=== PATIENT | female | born 1945 | race Caucasian/White ===

== ENCOUNTER 2021-01-15 08:44 | Emergency (ER) | payer MEDICARE, SELFPAY ==
--- NOTE | ~2021-01-15 | XR_ITS ---
EXAMINATION: XR ANKLE, RIGHT XR ANKLE, LEFT CLINICAL INFORMATION: Fall, pain. Unable to walk. COMPARISON: None TECHNIQUE: 3 views of each ankle are obtained. There are total of 6 views. FINDINGS: Right: There is no fracture or dislocation. Ankle mortise is symmetric. The talar dome shows no osteochondral lesion. No ankle joint narrowing or erosive change. No visible ankle capsular effusion. The subtalar joint appears normal. The retrocalcaneal recess is preserved. There is some mild narrowing from the medial malleolus, small posterior calcaneal spur, and moderate plantar calcaneal spur. There is mild spurring dorsal midfoot. Left: There is an oblique fracture distal fibula with mild lateral displacement distal fracture fragment. The posterior and medial malleoli are intact and the ankle mortise is symmetric. Talar dome shows no osteochondral lesion. The subtalar joint is unremarkable. There is a moderate plantar calcaneal spur and borderline posterior calcaneal spur. There is spurring from the dorsum midfoot and dorsal tarsal navicular. XR/XR ankle RT 2V IMPRESSION: 1. Oblique fracture distal left fibula. 2. No right ankle fracture or dislocation.
--- NOTE | ~2021-01-15 | CT_ITS ---
EXAMINATION: CT ANGIOGRAM OF THE CHEST WITH AND WITHOUT CONTRAST (CT PULMONARY ANGIOGRAM FOR PE) CLINICAL INFORMATION: Reason for Exam SOB, hypoxic, elevated dimer COMPARISON: None TECHNIQUE: Prior to contrast administration, noncontrast localization images were obtained. Subsequently, multidetector volumetric imaging was performed from the thoracic inlet to below the diaphragms following the administration of 71 mL Omnipaque 350 intravenous contrast. No contrast reaction reported Sagittal, coronal, and MIP oblique sagittal reformatted images were obtained on the CT workstation, uploaded to PACS, and reviewed. This CT examination was performed using dose optimization techniques as appropriate, variously including the following: *Automated exposure control *Adjustment of mA and/or kV according to patient size (this includes techniques or standardized protocols for targeted exams where dose is matched to indication/reason for exam; i.e. extremities or head) *Use of iterative reconstruction technique Total exam dose-length product 545 mGy-cm FINDINGS: QUALITY OF STUDY/CONTRAST BOLUS: Satisfactory. PULMONARY ARTERIES: No central or segmental pulmonary emboli. THORACIC AORTA: No aneurysm or dissection. LUNG: There are small lung volumes present. Hazy density seen bilateral lung bases likely related to atelectasis. PLEURA: No pleural effusion or pneumothorax. MEDIASTINUM: The heart is mildly enlarged. No pericardial effusion. No hilar or mediastinal lymphadenopathy. No evidence of septal bowing or right heart strain. No evidence of septal bowing or right heart strain. CHEST WALL/AXILLA: No axillary or internal mammary lymphadenopathy. OSSEOUS STRUCTURES: No acute or suspicious osseous abnormality. There is multilevel degenerative disc disease seen. There is bridging with calcification of the anterior longitudinal ligament within the lower thoracic spine. UPPER ABDOMEN: Multiple hepatic cysts cysts are seen one of which contains calcification within the left lobe. There is reflux of contrast into the hepatic veins suggestive of elevated right heart pressures. CT/CT angio chest PE protocol IMPRESSION: No evidence of acute pulmonary artery embolus. No evidence of thoracic aortic aneurysm or dissection. Mild cardiomegaly without evidence of septal bowing or right heart strain. There is some reflux into the inferior vena cava and hepatic veins suggestive of increased right heart pressures. Small lung volumes with atelectatic change. VTE: negative
--- NOTE | ~2021-01-15 | CT_ITS ---
EXAMINATION: CT CERVICAL SPINE WITHOUT CONTRAST CLINICAL INFORMATION: Fall, trauma. ETOH. COMPARISON: CT head 01/15/2021 TECHNIQUE: Multidetector volumetric CT imaging of the cervical spine is performed without contrast in the axial plane. Additional 2D reformatted coronal and sagittal images are generated on the CT workstation and uploaded to PACS. This CT examination was performed using dose optimization techniques as appropriate, variously including the following: *Automated exposure control *Adjustment of mA and/or kV according to patient size (this includes techniques or standardized protocols for targeted exams where dose is matched to indication/reason for exam; i.e. extremities or head) *Use of iterative reconstruction technique DLP: 748 mGy-cm FINDINGS: There is no vertebral compression fracture, fracture line, or prevertebral soft tissue swelling. The craniocervical junction appears normal. No perched facet. The odontoid appears intact. There is mild straightening cervical lordosis. Multilevel degenerative facet changes are present. There is anterior vertebral spurring mid cervical spine and mild disc narrowing C5-C6. There is borderline spondylolisthesis C3-C4 and at C4-C5, both likely related to the facet degeneration. There are degenerative changes between anterior arch C1 and the dens and involving the left temporomandibular joint with chondrocalcinosis meniscus. No apical pneumothorax. No subcutaneous emphysema. There are degenerative changes CT/CT cervical spine wo con IMPRESSION: 1. No acute bony abnormality or prevertebral soft tissue swelling. 2. Borderline spondylolisthesis C3 on C4 and C4 on C5 likely related to the multilevel facet degeneration.
--- NOTE | ~2021-01-15 | CT_ITS ---
EXAMINATION: CT HEAD WITHOUT CONTRAST CLINICAL INFORMATION: Fall, trauma. ETOH COMPARISON: None TECHNIQUE: Contiguous axial imaging was performed from the skull base to vertex without intravenous administration of contrast. Additional 2-D coronal and sagittal reformatted images are generated on the CT workstation and uploaded to PACS. This CT examination was performed using dose optimization techniques as appropriate, variously including the following: *Automated exposure control *Adjustment of mA and/or kV according to patient size (this includes techniques or standardized protocols for targeted exams where dose is matched to indication/reason for exam; i.e. extremities or head) *Use of iterative reconstruction technique DLP: 793 mGy-cm FINDINGS: There is no intracranial hemorrhage, hematoma, or extra-axial fluid collection. The ventricles are normal in size. There is no hydrocephalus, edema, or mass effect. There is mild to moderate atrophic changes with accentuation of the cortical sulci and fissures and cisterns. There is some mild periventricular white matter gliosis also involving the external capsules. There is no visible acute territorial infarct or mass lesion. The calvarium appears intact. There is no pneumocephalus or orbital emphysema. The visualized sinuses and middle ears and mastoid air cells show no significant mucosal thickening. There are no air-fluid levels. There is chondrocalcinosis and degenerative changes left temporomandibular joint. CT/CT head/brain wo con IMPRESSION: No acute intracranial abnormality.
--- NOTE | ~2021-01-15 | XR_ITS ---
EXAMINATION: XR ANKLE, RIGHT XR ANKLE, LEFT CLINICAL INFORMATION: Fall, pain. Unable to walk. COMPARISON: None TECHNIQUE: 3 views of each ankle are obtained. There are total of 6 views. FINDINGS: Right: There is no fracture or dislocation. Ankle mortise is symmetric. The talar dome shows no osteochondral lesion. No ankle joint narrowing or erosive change. No visible ankle capsular effusion. The subtalar joint appears normal. The retrocalcaneal recess is preserved. There is some mild narrowing from the medial malleolus, small posterior calcaneal spur, and moderate plantar calcaneal spur. There is mild spurring dorsal midfoot. Left: There is an oblique fracture distal fibula with mild lateral displacement distal fracture fragment. The posterior and medial malleoli are intact and the ankle mortise is symmetric. Talar dome shows no osteochondral lesion. The subtalar joint is unremarkable. There is a moderate plantar calcaneal spur and borderline posterior calcaneal spur. There is spurring from the dorsum midfoot and dorsal tarsal navicular. XR/XR ankle LT 2V IMPRESSION: 1. Oblique fracture distal left fibula. 2. No right ankle fracture or dislocation.
--- NOTE | 2021-01-15 08:46 | ECG_ITS ---
Test Reason : FALL Blood Pressure : / mmHG Vent. Rate : 105 BPM Atrial Rate : 105 BPM P-R Int : 152 ms QRS Dur : 066 ms QT Int : 334 ms P-R-T Axes : 040 -29 036 degrees QTc Int : 441 ms Sinus tachycardia Leftward axis Otherwise normal ECG No previous ECGs available Referred By: Marguerite Anton Electronically Signed By:ALEXANDRA GRIFFIN
[2021-01-15 08:59] VITALS: BP 147/84; PULSE 110; RESP 18; TEMP 37.4; O2SAT 91; BMI 39.7
--- NOTE | 2021-01-15 09:10 | ED.FALL ---
HPI - Fall General Chief Complaint: Fall Stated Complaint: fall s/p etoh, on the ground from 1-8am, -LOC/head Time Seen by Provider: 01/15/21 08:46 Source: patient Mode of arrival: EMS Limitations: no limitations History of Present Illness HPI Narrative: Patient comes to the emergency room complaining of a fall. Patient states that last night she drank a lot of bloody Juanita's. Patient states that she fell to the ground around 01:00, states that she is not sure if she passed out. Denies any headache, no neck pain. Patient states she believes she was on the ground until 08:00, states her legs feel weak. Related Data Allergies Allergy/AdvReac Type Severity Reaction Status Date / Time No Known Allergies Allergy Verified 01/15/21 08:46 Review of Systems Review of Systems: Constitutional : No Weight loss, No Fever, No Chills, No Night Sweats, No Fatigue, No Malaise ENT/Mouth : No Hearing loss, No Ear Pain, No Nasal Congestion, No Sinus Pain, No Hoarseness, No sore throat, No Rhinorrhea, No Swallowing Difficulty Eyes: No Eye Pain, No Swelling, No Redness, No Foreign Body, No Discharge, No Vision Changes Cardiovascular : No Chest Pain, No SOB, No Dyspnea on Exertion, No Orthopnea, No Edema, No Palpitations Respiratory : No Cough, No Sputum, No Wheezing, No Smoke Exposure, No Dyspnea Gastrointestinal : No Nausea, No Vomiting, No Diarrhea, No Constipation, No abdominal Pain, No Hematochezia, No Melena Genitourinary : no irregular bleeding, No Dysuria, No Urinary Frequency, No Hematuria, No Urinary Incontinence, No Urgency, No Flank Pain, No Urinary Flow Changes, No Hesitancy Musculoskeletal : No joint pain, No Myalgias, No Joint Swelling Skin : No Skin Lesions, No rash Neuro : No Weakness, No Numbness, No Paresthesias, No Loss of Consciousness, No Dizziness, No Headache Psych : No Anxiety/Panic, No Depression, No SI/HI/AH/VH, No Social Issues, Heme/Lymph: No Bruising, No Bleeding,No Lymphadenopathy Endocrine : No Polyuria, No Polydipsia, No Temperature Intolerance [facility] Past Medical History Medical History (Updated 01/15/21 @ 16:33 by Marguerite Anton MD) H/O: HTN (hypertension) Social History Social History Advance Directives: No Advance Directives Information Provided: No Physical Exam Vital Signs: Vital Signs: Last Vital Signs Temp 98.6 F 01/15/21 11:56 Pulse 109 H 01/15/21 11:56 Resp 22 H 01/15/21 11:56 BP 156/84 H 01/15/21 11:56 Pulse Ox 95 01/15/21 11:56 Body Mass Index 39.7 Course Course Course Narrative: I discussed the CT scan findings with the patient, nothing acute. Patient will be walked to check her oxygen saturation concentration while walking and to see if she is strong enough to do so. Patient's D-dimer is elevated, CTA of chest is pending. Patient does have an oblique fracture of the left fibula. I discussed the patient with Dr. Villanueva, patient is in a posterior splint, patient will follow-up outpatient with orthopedics. If patient has a PE, patient will likely need to be admitted. Patient can be managed in the outpatient setting. Patient will need case management and physical therapy. Sign out given to Dr. Chambers MDM - Fall Lab Data Result diagrams: 01/15/21 09:17 01/15/21 09:17 Labs: Lab Results 01/15/21 01/15/21 01/15/21 Range/Units 09:17 09:17 09:17 WBC 12.0 H (4.8-10.8) X10*3/uL RBC 4.73 (4.20-5.50) X10*6/uL Hgb 14.6 (12.0-16.0) g/dl Hct 45.0 (37-47) % MCV 95.1 (80-98) fL MCH 30.9 (27.0-33.0) pg MCHC 32.4 (31.0-35.0) g/dl RDW 14.7 (11.0-16.0) % Plt Count 273 (160-400) X10*3/uL MPV 8.8 L (9.4-12.3) fL Immature Gran % (Auto) 0.5 H (0.0-0.4) % Neut % (Auto) 80.7 H (45-73) % Lymph % (Auto) 8.5 L (20-40) % Williamson % (Auto) 8.5 (2-11) % Eos % (Auto) 1.4 (0-4) % Baso % (Auto) 0.4 (0-2) % Lymph # (Auto) 1.0 L (1.2-4.9) X10*3/uL Williamson # (Auto) 1.0 (0.1-1.2) X10*3/uL Eos # (Auto) 0.2 (0.0-0.4) X10*3/uL Baso # (Auto) 0.1 (0.0-0.2) X10*3/uL Abs Immat Gran (auto) 0.06 H (0.00-0.03) X10*3/uL Absolute Neuts (auto) 9.7 H (2.0-8.3) X10*3/uL Absolute Nucleated RBC 0.000 (0.0-0.012) X10*3/uL Nucleated RBC % (auto) 0.0 (0.0-0.2) /100WBC PT 11.8 (9.9-13.0) SEC INR 1.0 (0.9-1.1) D-Dimer NG/ML Sodium 142 (135-145) mmol/L Potassium 4.2 (3.3-5.1) mmol/L Chloride 109 H (96-108) mmol/L Carbon Dioxide 22 (22-29) mmol/L Anion Gap 15 (12-20) BUN 15 (9-16) mg/dL Creatinine 0.77 (0.5-1.4) mg/dL Estim Creat Clear Calc 70.8 Estimated GFR > 60 Random Glucose 122 H (60-115) mg/dL Calcium 9.4 (8.4-10.2) mg/dL Magnesium 1.9 (1.6-2.6) mg/dL Total Bilirubin 1.2 H (0.0-1.0) mg/dL Direct Bilirubin 0.5 (0.0-0.5) mg/dL AST 26 (5-31) U/L ALT 21 (0-31) U/L Alkaline Phosphatase 100 (39-117) U/L Total Creatine Kinase (26-140) U/L B-Natriuretic Peptide (<100) pg/mL Total Protein 7.4 (6.5-8.0) g/dL Albumin 4.0 (3.5-5.0) g/dL Lipase 34 (8-78) U/L Urine Color Urine Appearance Urine pH (5.0-8.0) Ur Specific Ambia (1.005-1.025) Urine Protein (NEG-TRACE) MG/DL Urine Glucose (UA) (NEG) MG/DL Urine Ketones (NEG) MG/DL Urine Blood (NEG) Urine Nitrite (NEG) Ur Leukocyte Esterase (NEG) Urine Opiates Screen (Not Detect) Urine Fentanyl Screen (Not Detect) Ur Barbiturates Screen (Not Detect) Ur Phencyclidine Scrn (Not Detect) Ur Amphetamines Screen (Not Detect) U Benzodiazepines Scrn (Not Detect) Urine Cocaine Screen (Not Detect) U Marijuana (THC) Screen (Not Detect) Ethyl Alcohol mg/dL COVID-19 (NGUYỄN) (Negative) COVID-19 Clin Com 01/15/21 01/15/21 01/15/21 Range/Units 09:17 09:17 10:19 WBC (4.8-10.8) X10*3/uL RBC (4.20-5.50) X10*6/uL Hgb (12.0-16.0) g/dl Hct (37-47) % MCV (80-98) fL MCH (27.0-33.0) pg MCHC (31.0-35.0) g/dl RDW (11.0-16.0) % Plt Count (160-400) X10*3/uL MPV (9.4-12.3) fL Immature Gran % (Auto) (0.0-0.4) % Neut % (Auto) (45-73) % Lymph % (Auto) (20-40) % Williamson % (Auto) (2-11) % Eos % (Auto) (0-4) % Baso % (Auto) (0-2) % Lymph # (Auto) (1.2-4.9) X10*3/uL Williamson # (Auto) (0.1-1.2) X10*3/uL Eos # (Auto) (0.0-0.4) X10*3/uL Baso # (Auto) (0.0-0.2) X10*3/uL Abs Immat Gran (auto) (0.00-0.03) X10*3/uL Absolute Neuts (auto) (2.0-8.3) X10*3/uL Absolute Nucleated RBC (0.0-0.012) X10*3/uL Nucleated RBC % (auto) (0.0-0.2) /100WBC PT (9.9-13.0) SEC INR (0.9-1.1) D-Dimer NG/ML Sodium (135-145) mmol/L Potassium (3.3-5.1) mmol/L Chloride (96-108) mmol/L Carbon Dioxide (22-29) mmol/L Anion Gap (12-20) BUN (9-16) mg/dL Creatinine (0.5-1.4) mg/dL Estim Creat Clear Calc Estimated GFR Random Glucose (60-115) mg/dL Calcium (8.4-10.2) mg/dL Magnesium (1.6-2.6) mg/dL Total Bilirubin (0.0-1.0) mg/dL Direct Bilirubin (0.0-0.5) mg/dL AST (5-31) U/L ALT (0-31) U/L Alkaline Phosphatase (39-117) U/L Total Creatine Kinase 249 H (26-140) U/L B-Natriuretic Peptide 102 H (<100) pg/mL Total Protein (6.5-8.0) g/dL Albumin (3.5-5.0) g/dL Lipase (8-78) U/L Urine Color Urine Appearance Urine pH (5.0-8.0) Ur Specific Ambia (1.005-1.025) Urine Protein (NEG-TRACE) MG/DL Urine Glucose (UA) (NEG) MG/DL Urine Ketones (NEG) MG/DL Urine Blood (NEG) Urine Nitrite (NEG) Ur Leukocyte Esterase (NEG) Urine Opiates Screen (Not Detect) Urine Fentanyl Screen (Not Detect) Ur Barbiturates Screen (Not Detect) Ur Phencyclidine Scrn (Not Detect) Ur Amphetamines Screen (Not Detect) U Benzodiazepines Scrn (Not Detect) Urine Cocaine Screen (Not Detect) U Marijuana (THC) Screen (Not Detect) Ethyl Alcohol < 10 mg/dL COVID-19 (NGUYỄN) (Negative) COVID-19 Clin Com 01/15/21 01/15/21 01/15/21 Range/Units 10:19 11:31 11:31 WBC (4.8-10.8) X10*3/uL RBC (4.20-5.50) X10*6/uL Hgb (12.0-16.0) g/dl Hct (37-47) % MCV (80-98) fL MCH (27.0-33.0) pg MCHC (31.0-35.0) g/dl RDW (11.0-16.0) % Plt Count (160-400) X10*3/uL MPV (9.4-12.3) fL Immature Gran % (Auto) (0.0-0.4) % Neut % (Auto) (45-73) % Lymph % (Auto) (20-40) % Williamson % (Auto) (2-11) % Eos % (Auto) (0-4) % Baso % (Auto) (0-2) % Lymph # (Auto) (1.2-4.9) X10*3/uL Williamson # (Auto) (0.1-1.2) X10*3/uL Eos # (Auto) (0.0-0.4) X10*3/uL Baso # (Auto) (0.0-0.2) X10*3/uL Abs Immat Gran (auto) (0.00-0.03) X10*3/uL Absolute Neuts (auto) (2.0-8.3) X10*3/uL Absolute Nucleated RBC (0.0-0.012) X10*3/uL Nucleated RBC % (auto) (0.0-0.2) /100WBC PT (9.9-13.0) SEC INR (0.9-1.1) D-Dimer NG/ML Sodium (135-145) mmol/L Potassium (3.3-5.1) mmol/L Chloride (96-108) mmol/L Carbon Dioxide (22-29) mmol/L Anion Gap (12-20) BUN (9-16) mg/dL Creatinine (0.5-1.4) mg/dL Estim Creat Clear Calc Estimated GFR Random Glucose (60-115) mg/dL Calcium (8.4-10.2) mg/dL Magnesium (1.6-2.6) mg/dL Total Bilirubin (0.0-1.0) mg/dL Direct Bilirubin (0.0-0.5) mg/dL AST (5-31) U/L ALT (0-31) U/L Alkaline Phosphatase (39-117) U/L Total Creatine Kinase (26-140) U/L B-Natriuretic Peptide (<100) pg/mL Total Protein (6.5-8.0) g/dL Albumin (3.5-5.0) g/dL Lipase (8-78) U/L Urine Color YELLOW Urine Appearance CLEAR Urine pH 6.0 (5.0-8.0) Ur Specific Ambia 1.015 (1.005-1.025) Urine Protein TRACE (NEG-TRACE) MG/DL Urine Glucose (UA) NEG (NEG) MG/DL Urine Ketones 5 (NEG) MG/DL Urine Blood NEG (NEG) Urine Nitrite NEG (NEG) Ur Leukocyte Esterase NEG (NEG) Urine Opiates Screen Not Detected (Not Detect) Urine Fentanyl Screen Not Detected (Not Detect) Ur Barbiturates Screen Not Detected (Not Detect) Ur Phencyclidine Scrn Not Detected (Not Detect) Ur Amphetamines Screen Not Detected (Not Detect) U Benzodiazepines Scrn Not Detected (Not Detect) Urine Cocaine Screen Not Detected (Not Detect) U Marijuana (THC) Screen Not Detected (Not Detect) Ethyl Alcohol mg/dL COVID-19 (NGUYỄN) Negative (Negative) COVID-19 Clin Com See Note 01/15/21 Range/Units 13:17 WBC (4.8-10.8) X10*3/uL RBC (4.20-5.50) X10*6/uL Hgb (12.0-16.0) g/dl Hct (37-47) % MCV (80-98) fL MCH (27.0-33.0) pg MCHC (31.0-35.0) g/dl RDW (11.0-16.0) % Plt Count (160-400) X10*3/uL MPV (9.4-12.3) fL Immature Gran % (Auto) (0.0-0.4) % Neut % (Auto) (45-73) % Lymph % (Auto) (20-40) % Williamson % (Auto) (2-11) % Eos % (Auto) (0-4) % Baso % (Auto) (0-2) % Lymph # (Auto) (1.2-4.9) X10*3/uL Williamson # (Auto) (0.1-1.2) X10*3/uL Eos # (Auto) (0.0-0.4) X10*3/uL Baso # (Auto) (0.0-0.2) X10*3/uL Abs Immat Gran (auto) (0.00-0.03) X10*3/uL Absolute Neuts (auto) (2.0-8.3) X10*3/uL Absolute Nucleated RBC (0.0-0.012) X10*3/uL Nucleated RBC % (auto) (0.0-0.2) /100WBC PT (9.9-13.0) SEC INR (0.9-1.1) D-Dimer 909 NG/ML Sodium (135-145) mmol/L Potassium (3.3-5.1) mmol/L Chloride (96-108) mmol/L Carbon Dioxide (22-29) mmol/L Anion Gap (12-20) BUN (9-16) mg/dL Creatinine (0.5-1.4) mg/dL Estim Creat Clear Calc Estimated GFR Random Glucose (60-115) mg/dL Calcium (8.4-10.2) mg/dL Magnesium (1.6-2.6) mg/dL Total Bilirubin (0.0-1.0) mg/dL Direct Bilirubin (0.0-0.5) mg/dL AST (5-31) U/L ALT (0-31) U/L Alkaline Phosphatase (39-117) U/L Total Creatine Kinase (26-140) U/L B-Natriuretic Peptide (<100) pg/mL Total Protein (6.5-8.0) g/dL Albumin (3.5-5.0) g/dL Lipase (8-78) U/L Urine Color Urine Appearance Urine pH (5.0-8.0) Ur Specific Ambia (1.005-1.025) Urine Protein (NEG-TRACE) MG/DL Urine Glucose (UA) (NEG) MG/DL Urine Ketones (NEG) MG/DL Urine Blood (NEG) Urine Nitrite (NEG) Ur Leukocyte Esterase (NEG) Urine Opiates Screen (Not Detect) Urine Fentanyl Screen (Not Detect) Ur Barbiturates Screen (Not Detect) Ur Phencyclidine Scrn (Not Detect) Ur Amphetamines Screen (Not Detect) U Benzodiazepines Scrn (Not Detect) Urine Cocaine Screen (Not Detect) U Marijuana (THC) Screen (Not Detect) Ethyl Alcohol mg/dL COVID-19 (NGUYỄN) (Negative) COVID-19 Clin Com Imaging Data Brain and cervical spine CT: Radiologist's impression: FINDINGS: There is no intracranial hemorrhage, hematoma, or extra-axial fluid collection.? The ventricles are normal in size. There is no hydrocephalus, edema, or mass effect.? There is mild to moderate atrophic changes with accentuation of the cortical sulci and fissures and cisterns. There is some mild periventricular white matter gliosis also involving the external capsules.? There is no visible acute territorial infarct or mass lesion. The calvarium appears intact. There is no pneumocephalus or orbital emphysema.? The visualized sinuses and middle ears and mastoid air cells show no significant mucosal thickening. There are no air-fluid levels. There is chondrocalcinosis and degenerative changes left temporomandibular joint. CT/CT head/brain wo con IMPRESSION: No acute intracranial abnormality. ECG Data Attestation: I personally reviewed and interpreted this ECG as follows: (Sinus tachycardia, heart rate 105, no ST segment depression or elevation, no T-wave inversions) Discharge Plan Discharge Clinical Impression: Closed fibular fracture, Acute dyspnea
[2021-01-15 09:22] LABS: MANUAL DIFF FLAG NO
[2021-01-15 09:23] LABS: Basophils Absolute Auto 0.1 X10*3/uL (0.0-0.2); Basophils Percent Auto 0.4 % (0-2); Eosinophils Absolute Auto 0.2 X10*3/uL (0.0-0.4); Eosinophils Percent Auto 1.4 % (0-4); Hemoglobin 14.6 g/dl (12.0-16.0); Imm Gran Abs Auto 0.06 X10*3/uL (0.00-0.03); Imm Gran Pct Auto 0.5 % (0.0-0.4); Lymphocytes Percent Auto 8.5 % (20-40); Mean Corpuscular HGB Conc 32.4 g/dl (31.0-35.0); Mean Corpuscular Hemoglobin 30.9 pg (27.0-33.0); Mean Corpuscular Volume 95.1 fL (80-98); Mean Platelet Volume 8.8 fL (9.4-12.3); Monocytes Percent Auto 8.5 % (2-11); Neutrophils Absolute Auto 9.7 X10*3/uL (2.0-8.3); Neutrophils Percent Auto 80.7 % (45-73); Platelet Count 273 X10*3/uL (160-400); Red Blood Count 4.73 X10*6/uL (4.20-5.50); Red Cell Distribution Width 14.7 % (11.0-16.0)
[2021-01-15 09:32] LABS: Prothrombin Time 11.8 SEC (9.9-13.0)
[2021-01-15 09:43] LABS: Ethanol < 10 mg/dL
[2021-01-15 09:45] LABS: Alanine Aminotransferase 21 U/L (0-31); Alkaline Phosphatase 100 U/L (39-117); Anion Gap 15 (12-20); Aspartate Amino Transferase 26 U/L (5-31); Bilirubin Direct 0.5 mg/dL (0.0-0.5); Bilirubin Total 1.2 mg/dL (0.0-1.0); Calcium 9.4 mg/dL (8.4-10.2); Carbon Dioxide 22 mmol/L (22-29); Chloride 109 mmol/L (96-108); Creatinine Clr Calc Pharmacy 70.8; Estimated Glomerular Filt Rate > 60; Glucose Random 122 mg/dL (60-115); Lipase 34 U/L (8-78); Magnesium 1.9 mg/dL (1.6-2.6); Potassium 4.2 mmol/L (3.3-5.1); Sodium 142 mmol/L (135-145); Total Protein 7.4 g/dL (6.5-8.0)
[2021-01-15 10:27] LABS: Blood Urea Nitrogen 15 mg/dL (9-16)
[2021-01-15] MEDS: 0.9 % Sodium Chloride 1,000 ML 999 ML IVCONT (10:39)
[2021-01-15 10:44] LABS: COVID-19 Test Negative (Negative); IDNOW Serial# 55D5AD1C
[2021-01-15 10:56] LABS: B Type Natriuretic Peptide 102 pg/mL (<100)
[2021-01-15 11:46] LABS: Appearance Urine CLEAR; Color Urine YELLOW; Glucose Urine UA NEG (NEG); Leukocyte Esterase Urine NEG (NEG); Nitrite Urine NEG (NEG); Specific Gravity - Urine 1.015 (1.005-1.025); Urine Blood NEG (NEG); Urine Ketones 5 MG/DL (NEG); Urine Protein TRACE MG/DL (NEG-TRACE)
[2021-01-15 11:56] VITALS: BP 156/84; PULSE 109; RESP 22; TEMP 37; O2SAT 95
[2021-01-15 11:57] LABS: Amphetamine Screen Urine Not Detected (Not Detect); Barbiturates, Urine Not Detected (Not Detect); Benzodiazepines Screen Urine Not Detected (Not Detect); Cannabinoid Screen Urine Not Detected (Not Detect); Cocaine Screen Urine Not Detected (Not Detect); Fentanyl, urine Not Detected (Not Detect); Opiate Screen Urine Not Detected (Not Detect); Phencyclidine Screen Urine Not Detected (Not Detect)
[2021-01-15 13:49] LABS: D Dimer 909 NG/ML
[2021-01-15] MEDS: traMADoL HCL 50 MG TABLET PO (13:50)
[2021-01-15 14:00] VITALS: BP 140/76; PULSE 100; RESP 14; TEMP 37.2; O2SAT 95
[2021-01-15] MEDS: iohexoL 350 MG/ML 100 ML INFUS..BTL IV (16:22)
--- NOTE | 2021-01-15 19:56 | PC.NURSE ---
MD REPORTS PT WILL STAY WITH US CASE MANAGEMENT. DAUGHTER REPORTS PT LIVES AT HOME ALONE, UNABLE TO CARE FOR HERSELF WITH FX.
[2021-01-15 20:51] VITALS: BP 167/94; PULSE 101; RESP 21; TEMP 37.1; O2SAT 93
--- NOTE | 2021-01-15 21:49 | MHC.CM.ED ---
CM met with patient and daughter per request of Dr. Chambers. Pt is A&Ox3. Pt is fully vaccinated with Vitasol. Pt lives alone and has a private pay stacker attendant every other week. Pt does not use any DME or has any services. Pt does not feel she can care for herself at home with her L tibula fx and weakness. PT evaluation ordered for am. Pt's daughter is in agreement. Daughter provides transportation and shops for her mother. HCP reviewed, completed and signed per protocol. Copies given and Uploaded into [employer] and [employer]. Reviewed both STR and Acute rehab. Pt and daughter would like Acute rehab as their first choice, and then facilities in [place] if not offered an acute rehab bed. [facility] given for both acute rehab and 5 [place] facilities. Referrals placed to 3 acute rehab. facilities. RN and Dr. Chambers aware of above. Requested hospital bed for overnight. Contact card given. CM to follow for d/c needs.
--- NOTE | 2021-01-15 21:53 | PC.NURSE ---
assisted pt with bedpan, changed linen and gown. pt requested toothbrush and paste. pt also given sandwich and soda.
--- NOTE | 2021-01-15 23:04 | MHC.CM.ED ---
Pt admits to drinking two Bloody Juanita's nightly to help her sleep. RN aware.
[2021-01-15] MEDS: Melatonin 3 MG TABLET 6 MG PO (23:25)
--- NOTE | 2021-01-15 23:40 | PC.NURSE ---
pt transferred to hospital bed for comfort. assisted with bedpan. pt refused to try purewick device.
[2021-01-16 01:36] VITALS: PULSE 92; RESP 16; O2SAT 95
[2021-01-16] MEDS: Acetaminophen 325 MG TABLET 650 MG PO (01:38)
[2021-01-16 06:16] VITALS: BP 139/66; PULSE 91; RESP 24; O2SAT 93
--- NOTE | 2021-01-16 06:31 | PC.NURSE ---
ASSISTED PT WITH BEDPAN, PT AGREED TO TRY A PUREWICK. LINEN CHANGED. PT SITTING UPRIGHT, REQUESTED HER BAG SO SHE CAN PUT MAKEUP ON. PT ASKING WHEN BREAKFAST WILL BE SERVED.
[2021-01-16 07:31] VITALS: BP 139/66; PULSE 91; O2SAT 93
[2021-01-16 07:55] VITALS: BP 137/90; PULSE 90; RESP 30; TEMP 37.2; O2SAT 92
[2021-01-16] MEDS: Losartan Potassium 50 MG TABLET PO (07:59)
--- NOTE | 2021-01-16 08:05 | PC.NURSE ---
Pt resting in bed. VSS though her sats remain low. Pt did have a workup for this yeaterday. She does not appear to be in any distress at this time. Afebrile. She had breakfast and states that she does not need anything at this time.
--- NOTE | 2021-01-16 09:27 | MHC.CM.ED ---
Patient remains in ER. Physical therapy eval completed. Short term rehab is recommended. Referral sent to all 3 acute rehabs. No acute rehab beds could be offered. Referral broadcasted to all 5 [place] group home facilities. Continue to monitor for d/c needs.
--- NOTE | 2021-01-16 09:50 | MHC.CM.ED ---
Met with patient and daughter in regards to discharge planning. Explained no acute rehab beds could be offered. Facility choices are: 1) [facility] 2) [facility] 3) [facility] 4) [facility] 5) [facility]. Referrals made via [employer]. Continue to monitor for d/c needs.
[2021-01-16] MEDS: LORazepam 0.5 MG TABLET PO (11:38)
[2021-01-16 11:43] VITALS: BP 150/81; PULSE 88; RESP 18; O2SAT 92
--- NOTE | 2021-01-16 11:53 | PC.NURSE ---
Pt c/o restless leg syndrome. PO ativan given. Pt's VSS. Pt given full bed bath. Daughter at bedside. Awaiting placement into SNF at this time.
--- NOTE | 2021-01-16 12:37 | MHC.CM.ED ---
Addendum entered by Michelle Turk 01/16/21 13:30: Patient received 2 Pfizer vaccines on 06/19 and 07/24. Original Note: Only facility able to offer a bed is [facility]. Patient and daughter Karma aware and agreeable. Patient can leave at 3pm. [facility] booked. Patient, Kimber Parada RN and Germaine WINCHESTER aware. Continue to monitor for d/c needs.
--- NOTE | 2021-01-16 14:41 | PC.NURSE ---
Report given to nurse at [facility]. Plan to discharge via ambulance at 1500.
== END 2021-01-16 15:38 | disposition skilled nursing facility (03) ==
PROVIDERS: Emergency Provider Emergency Medicine; PCP Internal Medicine
DX: S82.402A Unspecified fracture of shaft of left fibula, initial encounter for closed fracture (principal); M79.605 Pain in left leg; R06.00 Dyspnea, unspecified; R06.02 Shortness of breath; M54.2 Cervicalgia; X58.XXXA Exposure to other specified factors, initial encounter; Y93.9 Activity, unspecified; Y92.9 Unspecified place or not applicable; Y99.9 Unspecified external cause status; Z20.822 Contact with and (suspected) exposure to COVID-19; Z79.899 Other long term (current) drug therapy
CPT/HCPCS: 29505; 36415; 70450; 71275; 72125; 73600; 80048; 80076; 80307; 81003; 82077; 82550; 83690; 83735; 83880; 85025; 85379; 85610; 87635; 93005; 96360; 97162; 99284; 99285; Q9967

== ENCOUNTER 2021-01-29 07:13 | Outpatient (REF) | payer MEDICARE, SELFPAY ==
--- NOTE | ~2021-01-29 | XR_ITS ---
EXAMINATION: XR ANKLE, LEFT CLINICAL INFORMATION: Left ankle pain COMPARISON: 01/15/2021 TECHNIQUE: AP, lateral, and mortise views of the left ankle. FINDINGS: Again noted is the oblique fracture of the distal fibular metadiaphysis with approximately 0.3-0.4 cm lateral displacement of the distal fibular fragment at the site of lateral cortical disruption. No acute fractures identified at the medial or posterior malleoli. The talar dome is well-positioned within the ankle mortise. Ankle joint space is maintained. Old small ossicles are noted distal to the medial malleolus. Soft tissues remain swollen around the ankle. There is no callus formation at the fibular fracture site. There is a plantar calcaneal enthesophyte. Degenerative changes at some of the joints, including navicular-cuneiform joints where there is mild loss of joint space, subarticular cystic change and osteophyte formation. XR/XR ankle LT min 3V IMPRESSION: * No new abnormalities at the left ankle compared to 01/15/2021. * Again noted is an acute, mildly displaced oblique fracture of the distal fibular metadiaphysis (Salmon B injury).
== END 2021-01-29 07:14 | disposition home or self-care (01) ==
LOC: HO.HOSX 07:13
PROVIDERS: Visit Provider Physician Assistant
DX: S82.832A Other fracture of upper and lower end of left fibula, initial encounter for closed fracture (principal)
CPT/HCPCS: 73610; 99202

== ENCOUNTER 2021-02-05 08:35 | Outpatient (REF) | payer MEDICARE, SELFPAY ==
--- NOTE | ~2021-02-05 | XR_ITS ---
EXAMINATION: XR ANKLE, LEFT CLINICAL INFORMATION: Pain in unspecified ankle and joints of unspecified foot COMPARISON: Prior radiographs of the left ankle 01/29/2021 and 01/15/2021 TECHNIQUE: AP, lateral, and mortise views of the left ankle. FINDINGS: Redemonstration of obliquely oriented fibular fracture with some evidence of bony remodeling and callus formation. There has been no change in the alignment of the major fracture fragments. No new fracture is identified. There has been essentially no other change in findings since the prior study. XR/XR ankle LT min 3V IMPRESSION: Overall stable appearance of distal fibular fracture with bony remodeling and callus formation.
== END 2021-02-05 08:36 | disposition home or self-care (01) ==
LOC: HO.HOSX 08:35
PROVIDERS: Visit Provider Physician Assistant
DX: S82.832A Other fracture of upper and lower end of left fibula, initial encounter for closed fracture (principal)
CPT/HCPCS: 73610; 99212

== ENCOUNTER 2021-02-27 07:25 | Outpatient (REF) | payer MEDICARE, SELFPAY ==
--- NOTE | ~2021-02-27 | XR_ITS ---
EXAMINATION: XR ANKLE, LEFT CLINICAL INFORMATION: Ankle pain. COMPARISON: 02/05/2021 TECHNIQUE: AP, lateral, and mortise views of the left ankle. FINDINGS: Again seen is a spiral fracture of the distal fibula. Some minimal periosteal reaction is present, best appreciated on the lateral radiograph, not significantly changed when compared to the prior study. Some degenerative changes are also seen with some small osteophytes arising from the medial malleolus. A small plantar calcaneal spur is seen. XR/XR ankle LT min 3V IMPRESSION: Healing distal left fibular fracture.
== END 2021-02-27 07:26 | disposition home or self-care (01) ==
LOC: HO.HOSX 07:25
PROVIDERS: Visit Provider Physician Assistant
DX: S82.832D Other fracture of upper and lower end of left fibula, subsequent encounter for closed fracture with routine healing (principal)
CPT/HCPCS: 73610; 99212

== ENCOUNTER 2021-04-14 07:13 | Outpatient (REF) | payer MEDICARE, SELFPAY ==
--- NOTE | ~2021-04-14 | XR_ITS ---
EXAMINATION: XR ANKLE, LEFT CLINICAL INFORMATION: Ankle pain. COMPARISON: Left ankle 02/27/2021 and multiple priors. TECHNIQUE: AP, lateral, and mortise views of the left ankle. FINDINGS: Again seen is a healing spiral fracture of the distal fibula. Healing appears increased on the current study when compared to the prior exam. Again noted are some degenerative changes in the ankle along with well-corticated bony densities at the tip of the medial malleolus, probably secondary to old trauma. No new fractures are seen. XR/XR ankle LT min 3V IMPRESSION: Healing left fibular fracture and other chronic findings as described above.
== END 2021-04-14 07:14 | disposition home or self-care (01) ==
LOC: HO.HOSX 07:13
PROVIDERS: Visit Provider Physician Assistant
DX: S82.832D Other fracture of upper and lower end of left fibula, subsequent encounter for closed fracture with routine healing (principal)
CPT/HCPCS: 73610; 99212

== ENCOUNTER → 2022-08-16 14:53 | Outpatient (BNVA) | payer MEDICARE, OTHER, SELFPAY | PROVIDERS: PCP Internal Medicine; Visit Provider Internal Medicine | DX: I48.0 Paroxysmal atrial fibrillation (principal); Z79.01 Long term (current) use of anticoagulants; Z51.81 Encounter for therapeutic drug level monitoring | CPT/HCPCS: 85610; 99202 ==

== ENCOUNTER → 2022-08-20 14:51 | Outpatient (BNVA) | payer MEDICARE, OTHER, SELFPAY | PROVIDERS: PCP Internal Medicine; Visit Provider Internal Medicine | DX: I48.0 Paroxysmal atrial fibrillation (principal); Z79.01 Long term (current) use of anticoagulants; Z51.81 Encounter for therapeutic drug level monitoring | CPT/HCPCS: 85610; 99211 ==

== ENCOUNTER → 2022-08-27 14:56 | Outpatient (BNVA) | payer MEDICARE, OTHER, SELFPAY | PROVIDERS: PCP Internal Medicine; Visit Provider Internal Medicine | DX: I48.0 Paroxysmal atrial fibrillation (principal); Z79.01 Long term (current) use of anticoagulants; Z51.81 Encounter for therapeutic drug level monitoring | CPT/HCPCS: 85610; 99211 ==

== ENCOUNTER → 2022-09-03 14:27 | Outpatient (BNVA) | payer MEDICARE, OTHER, SELFPAY | PROVIDERS: PCP Internal Medicine; Visit Provider Internal Medicine | DX: I48.0 Paroxysmal atrial fibrillation (principal); Z51.81 Encounter for therapeutic drug level monitoring; Z79.01 Long term (current) use of anticoagulants | CPT/HCPCS: 85610; 99211 ==

== ENCOUNTER → 2022-09-10 14:19 | Outpatient (BNVA) | payer MEDICARE, OTHER, SELFPAY | PROVIDERS: PCP Internal Medicine; Visit Provider Internal Medicine | DX: I48.0 Paroxysmal atrial fibrillation (principal); Z79.01 Long term (current) use of anticoagulants; Z51.81 Encounter for therapeutic drug level monitoring | CPT/HCPCS: 85610; 99211 ==

== ENCOUNTER → 2022-09-17 14:20 | Outpatient (BNVA) | payer MEDICARE, OTHER, SELFPAY | PROVIDERS: PCP Internal Medicine; Visit Provider Internal Medicine | DX: I48.0 Paroxysmal atrial fibrillation (principal); Z79.01 Long term (current) use of anticoagulants; Z51.81 Encounter for therapeutic drug level monitoring | CPT/HCPCS: 85610; 99211 ==

== ENCOUNTER → 2022-09-24 14:23 | Outpatient (BNVA) | payer MEDICARE, OTHER, SELFPAY | PROVIDERS: PCP Internal Medicine; Visit Provider Internal Medicine | DX: I48.0 Paroxysmal atrial fibrillation (principal); Z79.01 Long term (current) use of anticoagulants; Z51.81 Encounter for therapeutic drug level monitoring | CPT/HCPCS: 36415; 80048; 85025; 85610; 99211 ==

== ENCOUNTER 2022-09-24 14:56 | Outpatient (REF) | payer MEDICARE, OTHER, SELFPAY ==
[2022-09-24 15:18] LABS: MANUAL DIFF FLAG NO
[2022-09-24 16:00] LABS: Basophils Absolute Auto 0.1 X10*3/uL (0.0-0.2); Basophils Percent Auto 0.6 % (0-2); Eosinophils Absolute Auto 0.3 X10*3/uL (0.0-0.4); Eosinophils Percent Auto 3.7 % (0-4); Hematocrit 40.9 % (37.0-47.0); Hemoglobin 12.7 g/dl (12.0-16.0); Imm Gran Abs Auto 0.02 X10*3/uL (0.00-0.03); Imm Gran Pct Auto 0.3 % (0.0-0.4); Lymphocytes Absolute Auto 1.4 X10*3/uL (1.2-4.9); Lymphocytes Percent Auto 17.2 % (20-40); Mean Corpuscular HGB Conc 31.1 g/dl (31.0-35.0); Mean Corpuscular Hemoglobin 30.8 pg (27.0-33.0); Mean Platelet Volume 9.4 fL (9.4-12.3); Monocytes Absolute Auto 0.8 X10*3/uL (0.1-1.2); Monocytes Percent Auto 9.7 % (2-11); Neutrophils Absolute Auto 5.4 x10*3/uL (2.0-8.3); Neutrophils Percent Auto 68.5 % (45-73); Platelet Count 295 X10*3/uL (160-400); Red Blood Count 4.13 X10*6/uL (4.20-5.50); Red Cell Distribution Width 15.9 % (11.0-16.0); White Blood Count 7.9 X10*3/uL (4.8-10.8)
[2022-09-24 16:05] LABS: INTERNATIONAL NORM RATIO 2.5 (0.9-1.1); Prothrombin Time 29.8 SEC (10.0-13.1)
[2022-09-24 16:20] LABS: Anion Gap 13 (12-20); Blood Urea Nitrogen 22 mg/dL (9-16); Calcium 8.7 mg/dL (8.4-10.2); Carbon Dioxide 31 mmol/L (22-29); Chloride 102 mmol/L (96-108); Estimated Glomerular Filt Rate 45; Glucose Random 116 mg/dL (60-115); Potassium 4.5 mmol/L (3.3-5.1); Sodium 141 mmol/L (135-145)
== END 2022-09-24 14:57 | disposition home or self-care (01) ==
LOC: HO.LAB 14:56
PROVIDERS: PCP Internal Medicine; Visit Provider Internal Medicine
DX: Z13.89 Encounter for screening for other disorder (principal)
CPT/HCPCS: 36415; 80048; 85025; 85610; 99211

== ENCOUNTER → 2022-10-22 14:36 | Outpatient (BNVA) | payer MEDICARE, OTHER, SELFPAY | PROVIDERS: PCP Internal Medicine; Visit Provider Internal Medicine | DX: I48.0 Paroxysmal atrial fibrillation (principal); Z79.01 Long term (current) use of anticoagulants; Z51.81 Encounter for therapeutic drug level monitoring | CPT/HCPCS: 85610; 99211 ==

== ENCOUNTER → 2022-11-05 14:25 | Outpatient (BNVA) | payer MEDICARE, OTHER, SELFPAY | PROVIDERS: PCP Internal Medicine; Visit Provider Internal Medicine | DX: I48.0 Paroxysmal atrial fibrillation (principal); Z79.01 Long term (current) use of anticoagulants; Z51.81 Encounter for therapeutic drug level monitoring | CPT/HCPCS: 85610; 99211 ==

== ENCOUNTER 2022-11-24 15:36 | Outpatient (AMB) | payer MEDICARE, OTHER, SELFPAY ==
--- NOTE | 2022-11-24 15:42 | MHC.OFFVISCO ---
Intake Intake Visit Reasons: Anticoagulation Allergies mitomycin Allergy (Intermediate, Verified 11/24/22 15:37) Rash Medication List - Last Reconciled 11/24/22 by Lia Silveira RN acetaminophen (Tylenol) 650 mg PO QID PRN calcium carbonate-vitamin D3 600 mg-5 mcg (200 unit) 1 tab PO BID diltiazem HCl 120 mg PO DAILY [L theanine 100 mg PO .hs PRN] loratadine 10 mg PO DAILY PRN losartan 1 tab PO DAILY melatonin 5 mg PO BEDTIME PRN mirtazapine 15 mg PO BEDTIME oxybutynin chloride ER 5 mg PO DAILY phenazopyridine 200 mg PO TID PRN [sleep 3 PO .hs PRN] torsemide 40 mg PO BID trazodone 25 mg PO BEDTIME PRN warfarin 5 mg See Protocol PO DAILY Nursing Note INR: 2.9- in therapeutic range Medications and supplements reviewed- no changes No changes in health, diet, medications, or supplements, Denies any signs and symptoms of bleeding or bruising or clotting. Bleeding, bruising, clotting discussed Nutritional guidance given -avoid greens when restarting warfarin Dose: hold warfarin per md/proc, restart per md post procedure F/U INR: tuesday12/03/22 Patient verbalizes understanding of instructions given pt to acs in w/c with lidya- pt states for valve clipping on 11/30/22- instructed to hold warfarin 11/24/22-11/30/22. already took warfarin this am. pt states will be in the hospital for 1-2 nights post proc Anti-Coag Initial Assessment Social Hx Patient Tobacco Use Status: Never used Tobacco alcohol intake: current Alcohol intake frequency: 0-2 drinks per day (every day- bloody itz) Cardiovascular Hx: HTN and Arrhythmias (afib/aflutter) Endocrine Hx: Diabetes (pre diabetes) and Other (wheezing on exertion) Musculoskeletal Hx: Arthritis GI Hx: Hemorrhoids Hx: Kidney Disease and Bladder Disorders (history bladder cancer 2017) Cancer HX: Yes (cancer cervix, bladder) Psych. Illness/Depression: Yes Coding Level of Care Code Est Patient Level 1 Diagnoses Current use of anticoagulant therapy Z79.01 Results AMB INR Fingerstick AMB INR Fingerstick 2.9 Last Edit by Lia Silveira RN on 11/24/22 15:44 Assessment & Plan Assessment & Plan (1) Current use of anticoagulant therapy: Code(s): Z79.01 - prison (current) use of anticoagulants Category: Medical
--- NOTE | 2022-11-24 15:49 | MHC.OFFVISCO ---
Intake Intake Visit Reasons: Anticoagulation Allergies mitomycin Allergy (Intermediate, Verified 11/24/22 15:37) Rash Medication List - Last Reconciled 11/24/22 by Lia Silveira RN acetaminophen (Tylenol) 650 mg PO QID PRN calcium carbonate-vitamin D3 600 mg-5 mcg (200 unit) 1 tab PO BID diltiazem HCl 120 mg PO DAILY [L theanine 100 mg PO .hs PRN] loratadine 10 mg PO DAILY PRN losartan 1 tab PO DAILY melatonin 5 mg PO BEDTIME PRN mirtazapine 15 mg PO BEDTIME oxybutynin chloride ER 5 mg PO DAILY phenazopyridine 200 mg PO TID PRN [sleep 3 PO .hs PRN] torsemide 40 mg PO BID trazodone 25 mg PO BEDTIME PRN warfarin 5 mg See Protocol PO DAILY Nursing Note INR: 2.9- in therapeutic range Medications and supplements reviewed No changes in health, diet, medications, or supplements, Denies any signs and symptoms of bleeding or bruising or clotting. Bleeding, bruising, clotting discussed Nutritional guidance given - avoid greens when restarting warfarin Dose: hold warfarin 11/25/22-11/30/22 F/U INR: tuesday12/03/22 Patient verbalizes understanding of instructions given pt to acs in w/c accompanied by lidya- pt states having valve clipping on 11/30/22- already took warfarin this am, to hold tomm- 11/30/22- no lovenox per cardiology prev note. pt states plans to be in the hosp 1-2 nights post procedure Anti-Coag Initial Assessment Social Hx Patient Tobacco Use Status: Never used Tobacco alcohol intake: current Alcohol intake frequency: 0-2 drinks per day (every day- bloody itz) Cardiovascular Hx: HTN and Arrhythmias (afib/aflutter) Endocrine Hx: Diabetes (pre diabetes) and Other (wheezing on exertion) Musculoskeletal Hx: Arthritis GI Hx: Hemorrhoids Hx: Kidney Disease and Bladder Disorders (history bladder cancer 2017) Cancer HX: Yes (cancer cervix, bladder) Psych. Illness/Depression: Yes Coding Level of Care Code Est Patient Level 1 Diagnoses Current use of anticoagulant therapy Z79.01 Results AMB INR Fingerstick AMB INR Fingerstick 2.9 Last Edit by Lia Silveira RN on 11/24/22 15:44 Assessment & Plan Assessment & Plan (1) Current use of anticoagulant therapy: Code(s): Z79.01 - long-term (current) use of anticoagulants Category: Medical
[2022-11-24 15:52] LABS: Prothrombin Time Whole Bld POC 34.6 sec (11.1-13.5); ~PT, ~INR - Anti Coag Clinic 2.9 (0.9-1.1)
== END 2022-11-24 15:52 | disposition home or self-care (01) ==
LOC: HO.ACS 15:36
PROVIDERS: PCP Internal Medicine; Visit Provider Internal Medicine
DX: Z79.01 Long term (current) use of anticoagulants (principal)

== ENCOUNTER → 2022-11-24 15:36 | Outpatient (BNVA) | payer MEDICARE, OTHER, SELFPAY | PROVIDERS: PCP Internal Medicine; Visit Provider Internal Medicine | DX: I48.0 Paroxysmal atrial fibrillation (principal); Z79.01 Long term (current) use of anticoagulants; Z51.81 Encounter for therapeutic drug level monitoring | CPT/HCPCS: 85610; 99211 ==

== ENCOUNTER 2022-12-03 15:49 | Outpatient (AMB) | payer MEDICARE, OTHER, SELFPAY ==
[2022-12-03 15:58] LABS: Prothrombin Time Whole Bld POC 14.2 sec (11.1-13.5); ~PT, ~INR - Anti Coag Clinic 1.2 (0.9-1.1)
--- NOTE | 2022-12-03 16:24 | MHC.OFFVISCO ---
Intake Vital Signs 12/03/22 16:35 BP 108/60 Blood Pressure Location Lt brachial Position Sitting Pulse 88 Pulse Source Auscultation Intake Visit Reasons: Anticoagulation Allergies mitomycin Allergy (Intermediate, Verified 12/03/22 15:50) Rash Medication List - Last Reconciled 12/03/22 by Lizette Santos, RN acetaminophen (Tylenol) 650 mg PO QID PRN calcium carbonate-vitamin D3 600 mg-5 mcg (200 unit) 1 tab PO BID diltiazem HCl 120 mg PO DAILY [L theanine 100 mg PO .hs PRN] loratadine 10 mg PO DAILY PRN losartan 1 tab PO DAILY melatonin 5 mg PO BEDTIME PRN mirtazapine 15 mg PO BEDTIME oxybutynin chloride ER 5 mg PO DAILY phenazopyridine 200 mg PO TID PRN [sleep 3 PO .hs PRN] torsemide 40 mg PO BID trazodone 25 mg PO BEDTIME PRN warfarin 5 mg See Protocol PO DAILY Nursing Note To [facility] via walker/WC accomp by daughter may for 1500 called earlier to let us know they were going to be late, arrived approx 1540 Pt had valve clipping done at [facility] 11/30, overnight stay till 12/01 evening pt had warfarin hold 5 days prior to procedure pt sts she has been taking warfarin, is vague regarding if she had any warfarin in the hospital pt sts she takes her warfarin in the mornings sts also that she has not moved her bowels since Wednesday 11/29, sts taking MOM and metamucil, discussion regarding importance of not taking bowel meds with warfarin Medications and supplements reviewed, denies any new meds, sts I haven't been taking my Losartan since coming home because my BP was very low in the hospital when questioned if Drs aware or if she was told to stop taking sts no I just stopped taking it denies any dizziness or lightheadedness reviewed usual warfarin dosing (2.5mg on Tuesdays and 5mg all other days) pt sts I take 1 warfarin everyday, I don't do the half reviewed importance of taking med as dosed by [facility] nurses pt fills own pill box, daughter offered, pt sts no I can do it, discussion with pt regarding concerns over dosing self and not following dosing sheet Denies any unusual signs and symptoms of bruising, bleeding Denies any new Chest pain, SOB, or clotting INR: 1.2 critical low, somewhat expected after procedure but not sure if pt has received 2 doses or 4 doses of warfarin as noted above Nutritional guidance given: no greens until next INR Dose:pt already took warfarin tis am will take 2.5mg this afternoon (total 7.5mg today) will take 7.5mg tomorrow then 5mg on Tuesday and Tuesday Daughter sts they are going on vacation on Tuesday to [facility], discussed with pt and daughter need for follow up INR and concerns for clotting. Daughter sts they are close to a [facility] call to [facility] ([facility])office to report critical INR, plan for dosing, pt holding losartan on her own, constipation, no S/S clotting at present and travel (car), spoke with Maya plan of care pts daughter will locate a lab in [place], she will call [facility] with location fax number, [facility] will send an order for lab PT/INR with fax # of [facility], INR will be faxed to us and we will dose accordingly. Request for more than 1 draw as may need a second draw later in week. Pt returning home 12/12 willl have [facility] appointment booked after 12/06 INR results obtained F/U INR: Wednesday 12/06 Patient and daughter verbalizes understanding of instructions given with accurate read back/ teach back of dosing BP taken per request of pt 108/60 thats what it normally runs encouraged to resume Losartan or speak with PCP regarding Losartan (also on Diltiazem) daughter sts they will restart it on Tuesday Anti-Coag Initial Assessment Social Hx Patient Tobacco Use Status: Never used Tobacco alcohol intake: current Alcohol intake frequency: 0-2 drinks per day (every day- bloody itz) Cardiovascular Hx: HTN and Arrhythmias (afib/aflutter) Endocrine Hx: Diabetes (pre diabetes) and Other (wheezing on exertion) Musculoskeletal Hx: Arthritis GI Hx: Hemorrhoids Hx: Kidney Disease and Bladder Disorders (history bladder cancer 2017) Cancer HX: Yes (cancer cervix, bladder) Psych. Illness/Depression: Yes Coding Level of Care Code Est Patient Level 2 Diagnoses Current use of anticoagulant therapy Z79.01 Time Spent (min) 30 Assessment & Plan Assessment & Plan (1) Current use of anticoagulant therapy: Code(s): Z79.01 - [facility] (current) use of anticoagulants Category: Medical
[2022-12-03 16:35] VITALS: BP 108/60; PULSE 88
== END 2022-12-03 17:00 | disposition home or self-care (01) ==
LOC: HO.ACS 15:49
PROVIDERS: PCP Internal Medicine; Visit Provider Internal Medicine
DX: Z79.01 Long term (current) use of anticoagulants (principal)

== ENCOUNTER → 2022-12-03 15:49 | Outpatient (BNVA) | payer MEDICARE, OTHER, SELFPAY | PROVIDERS: PCP Internal Medicine; Visit Provider Internal Medicine | DX: I48.0 Paroxysmal atrial fibrillation (principal); Z79.01 Long term (current) use of anticoagulants; Z51.81 Encounter for therapeutic drug level monitoring | CPT/HCPCS: 85610; 99212 ==

== ENCOUNTER → 2022-12-07 09:17 | Outpatient (BNVA) | payer MEDICARE, OTHER, SELFPAY | PROVIDERS: PCP Internal Medicine; Visit Provider Internal Medicine ==

== ENCOUNTER → 2022-12-10 15:04 | Outpatient (BNVA) | payer MEDICARE, OTHER, SELFPAY | PROVIDERS: PCP Internal Medicine; Visit Provider Internal Medicine ==

== ENCOUNTER 2022-12-15 10:01 | Outpatient (AMB) | payer MEDICARE, OTHER, SELFPAY ==
[2022-12-15 10:06] LABS: Prothrombin Time Whole Bld POC 25.6 sec (11.1-13.5); ~PT, ~INR - Anti Coag Clinic 2.1 (0.9-1.1)
--- NOTE | 2022-12-15 10:12 | MHC.OFFVISCO ---
Intake Intake Visit Reasons: Anticoagulation Allergies mitomycin Allergy (Intermediate, Verified 12/15/22 10:01) Rash Medication List - Last Reconciled 12/15/22 by Anahy Vu RN acetaminophen (Tylenol) 650 mg PO QID PRN calcium carbonate-vitamin D3 600 mg-5 mcg (200 unit) 1 tab PO BID diltiazem HCl 120 mg PO DAILY [L theanine 100 mg PO .hs PRN] loratadine 10 mg PO DAILY PRN losartan 1 tab PO DAILY melatonin 5 mg PO BEDTIME PRN mirtazapine 15 mg PO BEDTIME oxybutynin chloride ER 5 mg PO DAILY phenazopyridine 200 mg PO TID PRN [sleep 3 PO .hs PRN] torsemide 40 mg PO BID trazodone 25 mg PO BEDTIME PRN warfarin 5 mg See Protocol PO DAILY Nursing Note NO CP,SOB,DIET/MED CHANGES,FALLS OR SX OF BLEEDING. RESUME 5MGM DAILY AND FOLLOW-UP IN 10 DAYS GOOD UNDERSTANDING OF DOSING INSTR. Anti-Coag Initial Assessment Social Hx Patient Tobacco Use Status: Never used Tobacco alcohol intake: current Alcohol intake frequency: 0-2 drinks per day (every day- bloodMonthlys itz) Cardiovascular Hx: HTN and Arrhythmias (afib/aflutter) Endocrine Hx: Diabetes (pre diabetes) and Other (wheezing on exertion) Musculoskeletal Hx: Arthritis GI Hx: Hemorrhoids Hx: Kidney Disease and Bladder Disorders (history bladder cancer 2017) Cancer HX: Yes (cancer cervix, bladder) Psych. Illness/Depression: Yes Coding Level of Care Code Est Patient Level 1 Diagnoses Current use of anticoagulant therapy Z79.01 Assessment & Plan Assessment & Plan (1) Current use of anticoagulant therapy: Code(s): Z79.01 - retirement (current) use of anticoagulants Category: Medical
== END 2022-12-15 10:13 | disposition home or self-care (01) ==
LOC: HO.ACS 10:01
PROVIDERS: PCP Internal Medicine; Visit Provider Internal Medicine
DX: Z79.01 Long term (current) use of anticoagulants (principal)

== ENCOUNTER → 2022-12-15 10:01 | Outpatient (BNVA) | payer MEDICARE, OTHER, SELFPAY | PROVIDERS: PCP Internal Medicine; Visit Provider Internal Medicine | DX: I48.0 Paroxysmal atrial fibrillation (principal); Z79.01 Long term (current) use of anticoagulants; Z51.81 Encounter for therapeutic drug level monitoring | CPT/HCPCS: 85610; 99211 ==

== ENCOUNTER 2022-12-24 14:30 | Outpatient (AMB) | payer MEDICARE, OTHER, SELFPAY ==
[2022-12-24 14:53] LABS: Prothrombin Time Whole Bld POC 18.3 sec (11.1-13.5); ~PT, ~INR - Anti Coag Clinic 1.5 (0.9-1.1)
--- NOTE | 2022-12-24 15:01 | MHC.OFFVISCO ---
Intake Intake Visit Reasons: Anticoagulation Allergies mitomycin Allergy (Intermediate, Verified 12/24/22 14:45) Rash Medication List - Last Reconciled 12/24/22 by Annie Guzman RN acetaminophen (Tylenol) 650 mg PO QID PRN calcium carbonate-vitamin D3 600 mg-5 mcg (200 unit) 1 tab PO BID diltiazem HCl 120 mg PO DAILY [L theanine 100 mg PO .hs PRN] loratadine 10 mg PO DAILY PRN losartan 1 tab PO DAILY melatonin 5 mg PO BEDTIME PRN mirtazapine 15 mg PO BEDTIME oxybutynin chloride ER 5 mg PO DAILY phenazopyridine 200 mg PO TID PRN [sleep 3 PO .hs PRN] torsemide 40 mg PO BID warfarin 5 mg See Protocol PO DAILY Nursing Note INR: 1.5 OUT OF therapeutic range, MITRAL VLAVE CLIP HEALING AND FEELING LESS SOB, 90/ 54 HR 80 REGULAR - CALL TO CARDIOLOGY SPOKE WITH NURSE JETER / TO CALL PT WITH FURTHER INSTRUCTION Medications and supplements reviewed DECREASED TORSEMIDE 10MG PO BID , Denies any signs and symptoms of bleeding or bruising or clotting. Bleeding, bruising, clotting discussed Nutritional guidance given - AVOID GREENS TODAY AND TORORROW Dose: INCREASE 7.5MG X 1 DAY/ 5MG X 6 DAYS F/U INR: 12/30/22 Patient verbalizes understanding of instructions given Anti-Coag Initial Assessment Social Hx Patient Tobacco Use Status: Never used Tobacco alcohol intake: current Alcohol intake frequency: 0-2 drinks per day (every day- bloody itz) Cardiovascular Hx: HTN and Arrhythmias (afib/aflutter) Endocrine Hx: Diabetes (pre diabetes) and Other (wheezing on exertion) Musculoskeletal Hx: Arthritis GI Hx: Hemorrhoids Hx: Kidney Disease and Bladder Disorders (history bladder cancer 2017) Cancer HX: Yes (cancer cervix, bladder) Psych. 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
== END 2022-12-24 15:17 | disposition home or self-care (01) ==
LOC: HO.ACS 14:30
PROVIDERS: PCP Internal Medicine; Visit Provider Internal Medicine
DX: Z79.01 Long term (current) use of anticoagulants (principal)

== ENCOUNTER → 2022-12-24 14:30 | Outpatient (BNVA) | payer MEDICARE, OTHER, SELFPAY | PROVIDERS: PCP Internal Medicine; Visit Provider Internal Medicine | DX: I48.0 Paroxysmal atrial fibrillation (principal); Z79.01 Long term (current) use of anticoagulants; Z51.81 Encounter for therapeutic drug level monitoring | CPT/HCPCS: 85610; 99211 ==

== ENCOUNTER 2022-12-30 13:40 | Outpatient (AMB) | payer MEDICARE, OTHER, SELFPAY ==
[2022-12-30 13:59] LABS: Prothrombin Time Whole Bld POC 24.1 sec (11.1-13.5)
--- NOTE | 2022-12-30 14:12 | MHC.OFFVISCO ---
Intake Intake Visit Reasons: Anticoagulation Allergies mitomycin Allergy (Intermediate, Verified 12/24/22 14:45) Rash Medication List - Last Reconciled 12/30/22 by Annie Guzman, RN acetaminophen (Tylenol) 650 mg PO QID PRN calcium carbonate-vitamin D3 600 mg-5 mcg (200 unit) 1 tab PO BID diltiazem HCl 120 mg PO DAILY [L theanine 100 mg PO .hs PRN] loratadine 10 mg PO DAILY PRN losartan 1 tab PO DAILY melatonin 5 mg PO BEDTIME PRN mirtazapine 15 mg PO BEDTIME oxybutynin chloride ER 5 mg PO DAILY phenazopyridine 200 mg PO TID PRN [sleep 3 PO .hs PRN] torsemide 20 mg PO DAILY warfarin 5 mg See Protocol PO DAILY Nursing Note INR: 2.0 in therapeutic range prior the valve repair the pt was very tiered, she is feeling better - still a feeling of low energy- b/p low last visit, low again today PT HAD ECHO TODAY - B/P 90/ 60s B/P TODAY 88/52 HR 68 REGULAR Medications and supplements reviewed Denies any signs and symptoms of bleeding or bruising or clotting. Bleeding, bruising, clotting discussed Nutritional guidance given Dose: 7.5mg x 1 day/ 5mg x 6 days F/U INR: 2 weeks Patient verbalizes understanding of instructions given b/p check per md request - called and spoke with nurse Whitney Meade Initial Assessment Social Hx Patient Tobacco Use Status: Never used Tobacco alcohol intake: current Alcohol intake frequency: 0-2 drinks per day (every day- bloody itz) Cardiovascular Hx: HTN and Arrhythmias (afib/aflutter) Endocrine Hx: Diabetes (pre diabetes) and Other (wheezing on exertion) Musculoskeletal Hx: Arthritis GI Hx: Hemorrhoids Hx: Kidney Disease and Bladder Disorders (history bladder cancer 2017) Cancer HX: Yes (cancer cervix, bladder) Psych. Illness/Depression: Yes Coding Level of Care Code Est Patient Level 1 Diagnoses Current use of anticoagulant therapy Z79.01 Results AMB INR Fingerstick AMB INR Fingerstick 2.0 Last Edit by Annie Guzman RN on 12/30/22 14:03 MANUAL ENTRY Assessment & Plan Assessment & Plan (1) Current use of anticoagulant therapy: Code(s): Z79.01 - [facility] (current) use of anticoagulants Category: Medical
== END 2022-12-30 14:28 | disposition home or self-care (01) ==
LOC: HO.ACS 13:40
PROVIDERS: PCP Internal Medicine; Visit Provider Internal Medicine
DX: Z79.01 Long term (current) use of anticoagulants (principal)

== ENCOUNTER → 2022-12-30 13:40 | Outpatient (BNVA) | payer MEDICARE, OTHER, SELFPAY | PROVIDERS: PCP Internal Medicine; Visit Provider Internal Medicine | DX: I48.0 Paroxysmal atrial fibrillation (principal); Z79.01 Long term (current) use of anticoagulants; Z51.81 Encounter for therapeutic drug level monitoring | CPT/HCPCS: 85610; 99211 ==

== ENCOUNTER 2023-01-13 10:03 | Outpatient (AMB) | payer MEDICARE, OTHER, SELFPAY ==
--- NOTE | 2023-01-13 10:52 | MHC.OFFVISCO ---
Intake Intake Visit Reasons: Anticoagulation Allergies mitomycin Allergy (Intermediate, Verified 01/13/23 10:36) Rash Medication List - Last Reconciled 01/13/23 by Lia Silveira RN acetaminophen (Tylenol) 650 mg PO QID PRN calcium carbonate-vitamin D3 600 mg-5 mcg (200 unit) 1 tab PO BID diltiazem HCl 120 mg PO DAILY [L theanine 100 mg PO .hs PRN] loratadine 10 mg PO DAILY PRN melatonin 5 mg PO BEDTIME PRN mirtazapine 15 mg PO BEDTIME oxybutynin chloride ER 5 mg PO DAILY phenazopyridine 200 mg PO TID PRN [sleep 3 PO .hs PRN] torsemide 10 mg PO DAILY warfarin 5 mg See Protocol PO DAILY Nursing Note INR 3.3-?? out of therapeutic range Medications and supplements reviewed Patient status: pt amb with [facility], [facility]companied [facility] pt states they were at cardiology appt prior to this visit and bp was 100/60 pt keeping log of bp daily Medications or supplements: losartan d/c, torsemide reduced to 10mg - has not started yet Diet: same, eating more reds food list provided and reviewed Denies any signs and symptoms of bleeding or clotting or unusual bruising Bleeding, bruising, clotting discussed Nutritional guidance given: eat a green today, no reds for 2 days Dose: pt insists she has been taking 5mg daily- reduce dose tomm to 2.5mg then cont 5mg daily F/U INR Date : 10 days Patient verbalizing understanding of instructions given. Anti-Coag Initial Assessment Social Hx Patient Tobacco Use Status: Never used Tobacco alcohol intake: current Alcohol intake frequency: 0-2 drinks per day (every day- bloody itz) Cardiovascular Hx: HTN and Arrhythmias (afib/aflutter) Endocrine Hx: Diabetes (pre diabetes) and Other (wheezing on exertion) Musculoskeletal Hx: Arthritis GI Hx: Hemorrhoids Hx: Kidney Disease and Bladder Disorders (history bladder cancer 2017) Cancer HX: Yes (cancer cervix, bladder) Psych. Illness/Depression: Yes Coding Level of Care Code Est Patient Level 2 Diagnoses Current use of anticoagulant therapy Z79.01 Assessment & Plan Assessment & Plan (1) Current use of anticoagulant therapy: Code(s): Z79.01 - detention (current) use of anticoagulants Category: Medical
[2023-01-13 10:53] LABS: Prothrombin Time Whole Bld POC 40.1 sec (11.1-13.5); ~PT, ~INR - Anti Coag Clinic 3.3 (0.9-1.1)
== END 2023-01-13 11:04 | disposition home or self-care (01) ==
LOC: HO.ACS 10:03
PROVIDERS: PCP Internal Medicine; Visit Provider Internal Medicine
DX: Z79.01 Long term (current) use of anticoagulants (principal)

== ENCOUNTER → 2023-01-13 10:03 | Outpatient (BNVA) | payer MEDICARE, OTHER, SELFPAY | PROVIDERS: PCP Internal Medicine; Visit Provider Internal Medicine | DX: I48.0 Paroxysmal atrial fibrillation (principal); Z79.01 Long term (current) use of anticoagulants; Z51.81 Encounter for therapeutic drug level monitoring | CPT/HCPCS: 85610; 99212 ==

== ENCOUNTER 2023-01-24 13:09 | Outpatient (AMB) | payer MEDICARE, OTHER, SELFPAY ==
[2023-01-24 13:16] LABS: Prothrombin Time Whole Bld POC 30.2 sec (11.1-13.5); ~PT, ~INR - Anti Coag Clinic 2.5 (0.9-1.1)
--- NOTE | 2023-01-24 13:24 | MHC.OFFVISCO ---
Intake Intake Visit Reasons: Anticoagulation Allergies mitomycin Allergy (Intermediate, Verified 01/24/23 13:11) Rash Medication List - Last Reconciled 01/24/23 by Annie Guzman RN acetaminophen (Tylenol) 650 mg PO QID PRN calcium carbonate-vitamin D3 600 mg-5 mcg (200 unit) 1 tab PO BID diltiazem HCl 120 mg PO DAILY [L theanine 100 mg PO .hs PRN] loratadine 10 mg PO DAILY PRN melatonin 5 mg PO BEDTIME PRN mirtazapine 15 mg PO BEDTIME oxybutynin chloride ER 5 mg PO DAILY phenazopyridine 200 mg PO TID PRN [sleep 3 PO .hs PRN] torsemide 10 mg PO DAILY warfarin 5 mg See Protocol PO DAILY Nursing Note INR: 2.5 in therapeutic range Medications and supplements reviewed No changes in health, diet, medications, or supplements, Denies any signs and symptoms of bleeding or bruising or clotting. Bleeding, bruising, clotting discussed Nutritional guidance given - KEEP UP WEEKLY GREENS, COOKED GREENS PROVIDE MORE ABSORBABLE VIT K Dose: 5MG DAILY F/U INR: 02/11/23 Patient verbalizes understanding of instructions given Anti-Coag Initial Assessment Social Hx Patient Tobacco Use Status: Never used Tobacco alcohol intake: current Alcohol intake frequency: 0-2 drinks per day (every day- bloody itz) Cardiovascular Hx: HTN and Arrhythmias (afib/aflutter) Endocrine Hx: Diabetes (pre diabetes) and Other (wheezing on exertion) Musculoskeletal Hx: Arthritis GI Hx: Hemorrhoids Hx: Kidney Disease and Bladder Disorders (history bladder cancer 2017) Cancer HX: Yes (cancer cervix, bladder) Psych. 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
== END 2023-01-24 13:26 | disposition home or self-care (01) ==
LOC: HO.ACS 13:09
PROVIDERS: PCP Internal Medicine; Visit Provider Internal Medicine
DX: Z79.01 Long term (current) use of anticoagulants (principal)

== ENCOUNTER → 2023-01-24 13:09 | Outpatient (BNVA) | payer MEDICARE, OTHER, SELFPAY | PROVIDERS: PCP Internal Medicine; Visit Provider Internal Medicine | DX: I48.0 Paroxysmal atrial fibrillation (principal); Z79.01 Long term (current) use of anticoagulants; Z51.81 Encounter for therapeutic drug level monitoring | CPT/HCPCS: 85610; 99211 ==

== ENCOUNTER 2023-02-11 14:42 | Outpatient (AMB) | payer MEDICARE, OTHER, SELFPAY ==
--- NOTE | 2023-02-11 14:56 | MHC.OFFVISCO ---
Intake Intake Visit Reasons: Anticoagulation Allergies mitomycin Allergy (Intermediate, Verified 02/11/23 14:44) Rash Medication List - Last Reconciled 02/11/23 by Anahy Vu RN acetaminophen (Tylenol) 650 mg PO QID PRN calcium carbonate-vitamin D3 600 mg-5 mcg (200 unit) 1 tab PO BID diltiazem HCl 120 mg PO DAILY [L theanine 100 mg PO .hs PRN] loratadine 10 mg PO DAILY PRN melatonin 5 mg PO BEDTIME PRN mirtazapine 15 mg PO BEDTIME oxybutynin chloride ER 5 mg PO DAILY phenazopyridine 200 mg PO TID PRN [sleep 3 PO .hs PRN] torsemide 10 mg PO DAILY warfarin 5 mg See Protocol PO DAILY Nursing Note NO CP,SOB,DIET/MED CHANGES,FALLS OR SX OF BLEEDING. CONTINUE 5MGM DAILY AND FOLLOW-UP IN 4 WEEKS. GOOD UNDERTANDING OF DOSING INSTR. Anti-Coag Initial Assessment Social Hx Patient Tobacco Use Status: Never used Tobacco alcohol intake: current Alcohol intake frequency: 0-2 drinks per day (every day- bloodLight Harmonic itz) Cardiovascular Hx: HTN and Arrhythmias (afib/aflutter) Endocrine Hx: Diabetes (pre diabetes) and Other (wheezing on exertion) Musculoskeletal Hx: Arthritis GI Hx: Hemorrhoids Hx: Kidney Disease and Bladder Disorders (history bladder cancer 2017) Cancer HX: Yes (cancer cervix, bladder) Psych. Illness/Depression: Yes Coding Level of Care Code Est Patient Level 1 Diagnoses Current use of anticoagulant therapy Z79.01 Results AMB INR Fingerstick AMB INR Fingerstick 2.3 Last Edit by Anahy Vu RN on 02/11/23 14:52 Assessment & Plan Assessment & Plan (1) Current use of anticoagulant therapy: Code(s): Z79.01 - retirement (current) use of anticoagulants Category: Medical
[2023-02-11 15:31] LABS: Prothrombin Time Whole Bld POC 27.8 sec (11.1-13.5); ~PT, ~INR - Anti Coag Clinic 2.3 (0.9-1.1)
== END 2023-02-11 14:57 | disposition home or self-care (01) ==
LOC: HO.ACS 14:42
PROVIDERS: PCP Internal Medicine; Visit Provider Internal Medicine
DX: Z79.01 Long term (current) use of anticoagulants (principal)

== ENCOUNTER → 2023-02-11 14:42 | Outpatient (BNVA) | payer MEDICARE, OTHER, SELFPAY | PROVIDERS: PCP Internal Medicine; Visit Provider Internal Medicine | DX: I48.0 Paroxysmal atrial fibrillation (principal); Z79.01 Long term (current) use of anticoagulants; Z51.81 Encounter for therapeutic drug level monitoring | CPT/HCPCS: 85610; 99211 ==

== ENCOUNTER → 2023-03-11 15:36 | Outpatient (BNVA) | payer MEDICARE, OTHER, SELFPAY | PROVIDERS: PCP Internal Medicine; Visit Provider Internal Medicine | DX: I48.0 Paroxysmal atrial fibrillation (principal); Z79.01 Long term (current) use of anticoagulants; Z51.81 Encounter for therapeutic drug level monitoring | CPT/HCPCS: 85610 ==

== ENCOUNTER 2023-04-06 14:00 | Outpatient (AMB) | payer MEDICARE, OTHER, SELFPAY ==
[2023-04-06 14:20] LABS: Prothrombin Time Whole Bld POC 22.6 sec (11.1-13.5); ~PT, ~INR - Anti Coag Clinic 1.9 (0.9-1.1)
--- NOTE | 2023-04-06 14:26 | MHC.OFFVISCO ---
Intake Intake Visit Reasons: Anticoagulation Allergies mitomycin Allergy (Intermediate, Verified 04/06/23 14:12) Rash Medication List - Last Reconciled 04/06/23 by Annie Guzman RN acetaminophen (Tylenol) 650 mg PO QID PRN calcium carbonate-vitamin D3 600 mg-5 mcg (200 unit) 1 tab PO BID diltiazem HCl 120 mg PO DAILY [L theanine 100 mg PO .hs PRN] loratadine 10 mg PO DAILY PRN melatonin 5 mg PO BEDTIME PRN mirtazapine 15 mg PO BEDTIME oxybutynin chloride ER 5 mg PO DAILY phenazopyridine 200 mg PO TID PRN [sleep 3 PO .hs PRN] torsemide 10 mg PO DAILY warfarin 5 mg See Protocol PO DAILY Nursing Note INR: 1.9 in therapeutic range Medications and supplements reviewed Had GI upset very constipated for for a few days, then used stool softners then had diarrhea for a few days INR may be low due to her recent GI upset and use of laxatives and stool softners altering the Gut biome effecting the INR Denies any signs and symptoms of bleeding or bruising or clotting. Bleeding, bruising, clotting discussed Nutritional guidance given - avoid greens x 2 days, eat orange and reds to help raise the INR Dose: keep same for now 5mg daily F/U INR: 1 month per daughter request because she will be away Patient verbalizes understanding of instructions given Anti-Coag Initial Assessment Social Hx Patient Tobacco Use Status: Never used Tobacco alcohol intake: current Alcohol intake frequency: 0-2 drinks per day (every day- bloody itz) Cardiovascular Hx: HTN and Arrhythmias (afib/aflutter) Endocrine Hx: Diabetes (pre diabetes) and Other (wheezing on exertion) Musculoskeletal Hx: Arthritis GI Hx: Hemorrhoids Hx: Kidney Disease and Bladder Disorders (history bladder cancer 2017) Cancer HX: Yes (cancer cervix, bladder) Psych. Illness/Depression: Yes Coding Level of Care Code Est Patient Level 1
== END 2023-04-06 14:30 | disposition home or self-care (01) ==
LOC: HO.ACS 14:00
PROVIDERS: PCP Internal Medicine; Visit Provider Internal Medicine
DX: Z79.01 Long term (current) use of anticoagulants (principal)

== ENCOUNTER → 2023-04-06 14:00 | Outpatient (BNVA) | payer MEDICARE, OTHER, SELFPAY | PROVIDERS: PCP Internal Medicine; Visit Provider Internal Medicine | DX: I48.0 Paroxysmal atrial fibrillation (principal); Z79.01 Long term (current) use of anticoagulants; Z51.81 Encounter for therapeutic drug level monitoring | CPT/HCPCS: 85610; 99211 ==

== ENCOUNTER 2023-05-11 13:56 | Outpatient (AMB) | payer MEDICARE, OTHER, SELFPAY ==
[2023-05-11 14:08] LABS: Prothrombin Time Whole Bld POC 44.1 sec (11.1-13.5); ~PT, ~INR - Anti Coag Clinic 3.7 (0.9-1.1)
--- NOTE | 2023-05-11 14:17 | MHC.OFFVISCO ---
Intake Intake Visit Reasons: Anticoagulation Allergies mitomycin Allergy (Intermediate, Verified 05/11/23 14:02) Rash Medication List - Last Reconciled 05/11/23 by Lizette Santos, RN acetaminophen (Tylenol) 650 mg PO QID PRN calcium carbonate-vitamin D3 600 mg-5 mcg (200 unit) 1 tab PO BID diltiazem HCl 120 mg PO DAILY [L theanine 100 mg PO .hs PRN] loratadine 10 mg PO DAILY PRN melatonin 5 mg PO BEDTIME PRN mirtazapine 15 mg PO BEDTIME oxybutynin chloride ER 5 mg PO DAILY phenazopyridine 200 mg PO TID PRN psyllium (Metamucil) PO [sleep 3 PO .hs PRN] torsemide 10 mg PO DAILY warfarin 5 mg See Protocol PO DAILY Nursing Note Amb to [facility] accomp by daughter, feeling ok Medications and supplements reviewed No changes in health, diet, medications, or supplements Denies any unusual signs and symptoms of bruising, bleeding Denies any new Chest pain, SOB, or clotting INR: 3.7 above therapeutic range, sts she has been eating some greens, sts rarely has any bloody itz drinks due to the sodium in them, however she had a few vodka tonics over Nutritional guidance given: dark leafy greens today and tomorrow then balance greens and reds in diet Dose: pt already had warfarin dose today, then decrease dose tomorrow and Tuesday to 2.5mg vs 5 mg each day then resume usual dosing; 5mg daily F/U INR: 2 weeks Patient verbalizes understanding of instructions given with accurate read back/ teach back of dosing Anti-Coag Initial Assessment Social Hx Patient Tobacco Use Status: Never used Tobacco alcohol intake: current Alcohol intake frequency: 0-2 drinks per day (every day- bloody itz) Cardiovascular Hx: HTN and Arrhythmias (afib/aflutter) Endocrine Hx: Diabetes (pre diabetes) and Other (wheezing on exertion) Musculoskeletal Hx: Arthritis GI Hx: Hemorrhoids Hx: Kidney Disease and Bladder Disorders (history bladder cancer 2017) Cancer HX: Yes (cancer cervix, bladder) Psych. 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
== END 2023-05-11 14:28 | disposition home or self-care (01) ==
LOC: HO.ACS 13:56
PROVIDERS: PCP Internal Medicine; Visit Provider Internal Medicine
DX: Z79.01 Long term (current) use of anticoagulants (principal)

== ENCOUNTER → 2023-05-11 13:56 | Outpatient (BNVA) | payer MEDICARE, OTHER, SELFPAY | PROVIDERS: PCP Internal Medicine; Visit Provider Internal Medicine | DX: I48.0 Paroxysmal atrial fibrillation (principal); Z51.81 Encounter for therapeutic drug level monitoring; Z79.01 Long term (current) use of anticoagulants | CPT/HCPCS: 85610; 99211 ==

== ENCOUNTER 2023-05-26 13:56 | Outpatient (AMB) | payer MEDICARE, OTHER, SELFPAY ==
--- NOTE | 2023-05-26 14:37 | MHC.OFFVISCO ---
Intake Intake Visit Reasons: Anticoagulation Allergies mitomycin Allergy (Intermediate, Verified 05/26/23 14:16) Rash Medication List - Last Reconciled 05/26/23 by Annie Guzman RN acetaminophen (Tylenol) 650 mg PO QID PRN calcium carbonate-vitamin D3 600 mg-5 mcg (200 unit) 1 tab PO BID diltiazem HCl 120 mg PO DAILY [L theanine 100 mg PO .hs PRN] loratadine 10 mg PO DAILY PRN melatonin 5 mg PO BEDTIME PRN mirtazapine 15 mg PO BEDTIME oxybutynin chloride ER 5 mg PO DAILY phenazopyridine 200 mg PO TID PRN psyllium (Metamucil) PO [sleep 3 PO .hs PRN] torsemide 10 mg PO DAILY warfarin 5 mg See Protocol PO DAILY Nursing Note INR 1.9 out of therapeutic range Medications and supplements reviewed Patient status: doing well offers no complaints, she stated she has been eating activia yogurt daily and taking metamucil and moving her bowels regularly she also has been eating more cabbage usually Medications or supplements: no changes Diet: good Denies any signs and symptoms of bleeding or clotting or unusual bruising Bleeding, bruising, clotting discussed Nutritional guidance given: cooked greens can lower your INR more than raw Dose: keep the same dose 5mg daily because previous INR was elevated at 3.7 F/U INR Date: 2 weeks 06/10/23 on the same day as her PCP appt ?? Patient verbalizing understanding of instructions given. Anti-Coag Initial Assessment Social Hx Patient Tobacco Use Status: Never used Tobacco alcohol intake: current Alcohol intake frequency: 0-2 drinks per day (every day- bloody itz) Cardiovascular Hx: HTN and Arrhythmias (afib/aflutter) Endocrine Hx: Diabetes (pre diabetes) and Other (wheezing on exertion) Musculoskeletal Hx: Arthritis GI Hx: Hemorrhoids Hx: Kidney Disease and Bladder Disorders (history bladder cancer 2017) Cancer HX: Yes (cancer cervix, bladder) Psych. Illness/Depression: Yes Coding Level of Care Code Est Patient Level 1 Diagnoses Current use of anticoagulant therapy Z79.01 Results AMB INR Fingerstick AMB INR Fingerstick 1.9 Last Edit by Annie Guzman RN on 05/26/23 14:26 MANUAL ENTRY Assessment & Plan Assessment & Plan (1) Current use of anticoagulant therapy: Code(s): Z79.01 - skilled nursing (current) use of anticoagulants Category: Medical
[2023-05-27 08:12] LABS: Prothrombin Time Whole Bld POC 23.2 sec (11.1-13.5); ~PT, ~INR - Anti Coag Clinic 1.9 (0.9-1.1)
== END 2023-05-26 14:42 | disposition home or self-care (01) ==
LOC: HO.ACS 13:56
PROVIDERS: PCP Internal Medicine; Visit Provider Internal Medicine
DX: Z79.01 Long term (current) use of anticoagulants (principal)

== ENCOUNTER → 2023-05-26 13:56 | Outpatient (BNVA) | payer MEDICARE, OTHER, SELFPAY | PROVIDERS: PCP Internal Medicine; Visit Provider Internal Medicine | DX: I48.0 Paroxysmal atrial fibrillation (principal); Z79.01 Long term (current) use of anticoagulants; Z51.81 Encounter for therapeutic drug level monitoring | CPT/HCPCS: 85610; 99211 ==

== ENCOUNTER 2023-06-10 13:25 | Outpatient (AMB) | payer MEDICARE, OTHER, SELFPAY ==
[2023-06-10 14:00] LABS: Prothrombin Time Whole Bld POC 29.3 sec (11.1-13.5); ~PT, ~INR - Anti Coag Clinic 2.4 (0.9-1.1)
--- NOTE | 2023-06-10 14:04 | MHC.OFFVISCO ---
Intake Intake Visit Reasons: Anticoagulation Allergies mitomycin Allergy (Intermediate, Verified 06/10/23 13:53) Rash Medication List - Last Reconciled 06/10/23 by Annie Guzman RN acetaminophen (Tylenol) 650 mg PO QID PRN calcium carbonate-vitamin D3 600 mg-5 mcg (200 unit) 1 tab PO BID diltiazem HCl 120 mg PO DAILY [L theanine 100 mg PO .hs PRN] loratadine 10 mg PO DAILY PRN melatonin 5 mg PO BEDTIME PRN mirtazapine 15 mg PO BEDTIME oxybutynin chloride ER 5 mg PO DAILY phenazopyridine 200 mg PO TID PRN psyllium (Metamucil) PO [sleep 3 PO .hs PRN] torsemide 10 mg PO DAILY warfarin 5 mg See Protocol PO DAILY Nursing Note INR: 2.4 in therapeutic range Medications and supplements reviewed No changes in health, diet, medications, or supplements, Denies any signs and symptoms of bleeding or bruising or clotting. 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 will call with any medication changes Bleeding, bruising, clotting discussed Nutritional guidance given Dose: keep same 5mg daily F/U INR: 07/07/23 per daughter request Patient verbalizes understanding of instructions given Anti-Coag Initial Assessment Social Hx Patient Tobacco Use Status: Never used Tobacco alcohol intake: current Alcohol intake frequency: 0-2 drinks per day (every day- bloodsalvatore mobley) Cardiovascular Hx: HTN and Arrhythmias (afib/aflutter) Endocrine Hx: Diabetes (pre diabetes) and Other (wheezing on exertion) Musculoskeletal Hx: Arthritis GI Hx: Hemorrhoids Hx: Kidney Disease and Bladder Disorders (history bladder cancer 2017) Cancer HX: Yes (cancer cervix, bladder) Psych. Illness/Depression: Yes Coding Level of Care Code Est Patient Level 1 Diagnoses Current use of anticoagulant therapy Z79.01 Assessment & Plan Assessment & Plan (1) Current use of anticoagulant therapy: Code(s): Z79.01 - prison (current) use of anticoagulants Category: Medical
== END 2023-06-10 14:09 | disposition home or self-care (01) ==
LOC: HO.ACS 13:25
PROVIDERS: PCP Internal Medicine; Visit Provider Internal Medicine
DX: Z79.01 Long term (current) use of anticoagulants (principal)

== ENCOUNTER → 2023-06-10 13:25 | Outpatient (BNVA) | payer MEDICARE, OTHER, SELFPAY | PROVIDERS: PCP Internal Medicine; Visit Provider Internal Medicine | DX: I48.0 Paroxysmal atrial fibrillation (principal); Z79.01 Long term (current) use of anticoagulants; Z51.81 Encounter for therapeutic drug level monitoring | CPT/HCPCS: 85610; 99211 ==

== ENCOUNTER 2023-07-07 14:00 | Outpatient (AMB) | payer MEDICARE, OTHER, SELFPAY ==
--- NOTE | 2023-07-07 14:13 | MHC.OFFVISCO ---
Intake Intake Visit Reasons: Anticoagulation Allergies mitomycin Allergy (Intermediate, Verified 07/07/23 14:06) Rash Medication List - Last Reconciled 07/07/23 by Lia Silveira RN acetaminophen (Tylenol) 650 mg PO QID PRN calcium carbonate-vitamin D3 600 mg-5 mcg (200 unit) 1 tab PO BID diltiazem HCl 120 mg PO DAILY [L theanine 100 mg PO .hs PRN] loratadine 10 mg PO DAILY PRN melatonin 5 mg PO BEDTIME PRN mirtazapine 15 mg PO BEDTIME oxybutynin chloride ER 5 mg PO DAILY phenazopyridine 200 mg PO TID PRN psyllium (Metamucil) PO [sleep 3 PO .hs PRN] torsemide 10 mg PO DAILY warfarin 5 mg See Protocol PO DAILY Nursing Note INR: 2.8- in therapeutic range of 2-3 Medications and supplements reviewed No changes in health, diet, medications, or supplements, Denies any signs and symptoms of bleeding or bruising or clotting. Bleeding, bruising, clotting discussed Nutritional guidance given Dose: 5mg x 7 F/U INR: 4 weeks Patient verbalizes understanding of instructions given Anti-Coag Initial Assessment Social Hx Patient Tobacco Use Status: Never used Tobacco alcohol intake: current Alcohol intake frequency: 0-2 drinks per day (every day- bloody itz) Cardiovascular Hx: HTN and Arrhythmias (afib/aflutter) Endocrine Hx: Diabetes (pre diabetes) and Other (wheezing on exertion) Musculoskeletal Hx: Arthritis GI Hx: Hemorrhoids Hx: Kidney Disease and Bladder Disorders (history bladder cancer 2017) Cancer HX: Yes (cancer cervix, bladder) Psych. Illness/Depression: Yes Coding Level of Care Code Est Patient Level 1 Diagnoses Current use of anticoagulant therapy Z79.01 Assessment & Plan Assessment & Plan (1) Current use of anticoagulant therapy: Code(s): Z79.01 - [employer] (current) use of anticoagulants Category: Medical Medications: New atorvastatin 10 mg PO DAILY Changed From torsemide 10 mg PO DAILY To torsemide 10 mg PO .qod
[2023-07-07 14:15] LABS: Prothrombin Time Whole Bld POC 33.2 sec (11.1-13.5); ~PT, ~INR - Anti Coag Clinic 2.8 (0.9-1.1)
== END 2023-07-07 14:19 | disposition home or self-care (01) ==
LOC: HO.ACS 14:00
PROVIDERS: PCP Internal Medicine; Visit Provider Internal Medicine
DX: Z79.01 Long term (current) use of anticoagulants (principal)

== ENCOUNTER → 2023-07-07 14:00 | Outpatient (BNVA) | payer MEDICARE, OTHER, SELFPAY | PROVIDERS: PCP Internal Medicine; Visit Provider Internal Medicine | DX: I48.0 Paroxysmal atrial fibrillation (principal); Z79.01 Long term (current) use of anticoagulants; Z51.81 Encounter for therapeutic drug level monitoring | CPT/HCPCS: 85610; 99211 ==

== ENCOUNTER 2023-08-04 15:35 | Outpatient (AMB) | payer MEDICARE, OTHER, SELFPAY ==
[2023-08-04 15:45] LABS: ~PT, ~INR - Anti Coag Clinic 2.1 (0.9-1.1)
--- NOTE | 2023-08-04 15:51 | MHC.OFFVISCO ---
Intake Intake Visit Reasons: Anticoagulation Allergies mitomycin Allergy (Intermediate, Verified 08/04/23 15:37) Rash Nursing Note INR: 2.1 in therapeutic range of 2-3 Medications and supplements reviewed: no changes No changes in health, diet, medications, or supplements, Denies any signs and symptoms of bleeding or bruising or clotting. Bleeding, bruising, clotting discussed Nutritional guidance given to avoid greens the next 2 days and have a serving of food from the reds list the next 2 days, then to balance reds and greens Dose: continue same dose of 5 mg daily F/U INR: 3 weeks Patient verbalizes understanding of instructions given Anti-Coag Initial Assessment Social Hx Patient Tobacco Use Status: Never used Tobacco alcohol intake: current Alcohol intake frequency: 0-2 drinks per day (every day- bloody itz) Cardiovascular Hx: HTN and Arrhythmias (afib/aflutter) Endocrine Hx: Diabetes (pre diabetes) and Other (wheezing on exertion) Musculoskeletal Hx: Arthritis GI Hx: Hemorrhoids Hx: Kidney Disease and Bladder Disorders (history bladder cancer 2017) Cancer HX: Yes (cancer cervix, bladder) Psych. 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
== END 2023-08-04 15:53 | disposition home or self-care (01) ==
LOC: HO.ACS 15:35
PROVIDERS: PCP Internal Medicine; Visit Provider Internal Medicine
DX: Z79.01 Long term (current) use of anticoagulants (principal)

== ENCOUNTER → 2023-08-04 15:35 | Outpatient (BNVA) | payer MEDICARE, OTHER, SELFPAY | PROVIDERS: PCP Internal Medicine; Visit Provider Internal Medicine | DX: I48.0 Paroxysmal atrial fibrillation (principal); Z79.01 Long term (current) use of anticoagulants; Z51.81 Encounter for therapeutic drug level monitoring | CPT/HCPCS: 85610; 99211 ==

== ENCOUNTER 2023-08-25 14:18 | Outpatient (AMB) | payer MEDICARE, OTHER, SELFPAY ==
[2023-08-25 14:34] LABS: Prothrombin Time Whole Bld POC 35.3 sec (11.1-13.5); ~PT, ~INR - Anti Coag Clinic 2.9 (0.9-1.1)
--- NOTE | 2023-08-25 14:38 | MHC.OFFVISCO ---
Intake Intake Visit Reasons: Anticoagulation Allergies mitomycin Allergy (Intermediate, Verified 08/25/23 14:25) Rash Medication List - Last Reconciled 08/25/23 by Anahy Vu RN acetaminophen (Tylenol) 650 mg PO QID PRN atorvastatin 10 mg PO DAILY calcium carbonate-vitamin D3 600 mg-5 mcg (200 unit) 1 tab PO BID diltiazem HCl CD 120 mg PO DAILY [L theanine 100 mg PO .hs PRN] loratadine 10 mg PO DAILY PRN melatonin 5 mg PO BEDTIME PRN mirtazapine 15 mg PO BEDTIME oxybutynin chloride ER 5 mg PO DAILY phenazopyridine 200 mg PO TID PRN psyllium (Metamucil) PO [sleep 3 PO .hs PRN] torsemide 10 mg PO .qod warfarin 5 mg See Protocol PO DAILY Nursing Note NO CP,SOB,DIET/MED CHANGES,FALLS OR SX OF BLEEDING. CONTINIE PRESENT DOSE AND FOLLOW-UP IN 4 WEEKS. GOOD UNDERSTANDING OF DOSING INSTR. Anti-Coag Initial Assessment Social Hx Patient Tobacco Use Status: Never used Tobacco alcohol intake: current Alcohol intake frequency: 0-2 drinks per day (every day- bloode-volo itz) Cardiovascular Hx: HTN and Arrhythmias (afib/aflutter) Endocrine Hx: Diabetes (pre diabetes) and Other (wheezing on exertion) Musculoskeletal Hx: Arthritis GI Hx: Hemorrhoids Hx: Kidney Disease and Bladder Disorders (history bladder cancer 2017) Cancer HX: Yes (cancer cervix, bladder) Psych. 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
== END 2023-08-25 14:39 | disposition home or self-care (01) ==
LOC: HO.ACS 14:18
PROVIDERS: PCP Internal Medicine; Visit Provider Internal Medicine
DX: Z79.01 Long term (current) use of anticoagulants (principal)

== ENCOUNTER → 2023-08-25 14:18 | Outpatient (BNVA) | payer MEDICARE, OTHER, SELFPAY | PROVIDERS: PCP Internal Medicine; Visit Provider Internal Medicine | DX: I48.0 Paroxysmal atrial fibrillation (principal); Z79.01 Long term (current) use of anticoagulants; Z51.81 Encounter for therapeutic drug level monitoring | CPT/HCPCS: 85610; 99211 ==

== ENCOUNTER 2023-09-22 14:28 | Outpatient (AMB) | payer MEDICARE, OTHER, SELFPAY ==
[2023-09-22 14:37] LABS: Prothrombin Time Whole Bld POC 43.7 sec (11.1-13.5); ~PT, ~INR - Anti Coag Clinic 3.6 (0.9-1.1)
--- NOTE | 2023-09-22 14:41 | MHC.OFFVISCO ---
Intake Intake Visit Reasons: Anticoagulation Allergies mitomycin Allergy (Intermediate, Verified 09/22/23 14:31) Rash Medication List - Last Reconciled 09/22/23 by Lizette Bejarano, RN acetaminophen (Tylenol) 650 mg PO QID PRN atorvastatin 10 mg PO DAILY calcium carbonate-vitamin D3 600 mg-5 mcg (200 unit) 1 tab PO BID diltiazem HCl CD 120 mg PO DAILY [L theanine 100 mg PO .hs PRN] loratadine 10 mg PO DAILY PRN melatonin 5 mg PO BEDTIME PRN mirtazapine 15 mg PO BEDTIME oxybutynin chloride ER 5 mg PO DAILY phenazopyridine 200 mg PO TID PRN psyllium (Metamucil) PO [sleep 3 PO .hs PRN] torsemide 10 mg PO .qod warfarin 5 mg See Protocol PO DAILY Nursing Note INR 3.6 out of therapeutic range of 2-3 Medications and supplements reviewed: no changes Patient status: well Medications or supplements: no change Diet: usual diet Denies any signs and symptoms of bleeding or clotting or unusual bruising Bleeding, bruising, clotting discussed Nutritional guidance given: have greens today, and pt plans to have greens on Tuesday foe her Mother's Day dinner by her family Dose: 5mg daily F/U INR Date : 3 weeks?? Patient verbalizing understanding of instructions given. Anti-Coag Initial Assessment Social Hx Patient Tobacco Use Status: Never used Tobacco alcohol intake: current Alcohol intake frequency: 0-2 drinks per day (every day- bloody itz) Cardiovascular Hx: HTN and Arrhythmias (afib/aflutter) Endocrine Hx: Diabetes (pre diabetes) and Other (wheezing on exertion) Musculoskeletal Hx: Arthritis GI Hx: Hemorrhoids Hx: Kidney Disease and Bladder Disorders (history bladder cancer 2017) Cancer HX: Yes (cancer cervix, bladder) Psych. 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
== END 2023-09-22 14:45 | disposition home or self-care (01) ==
LOC: HO.ACS 14:28
PROVIDERS: PCP Internal Medicine; Visit Provider Internal Medicine
DX: Z79.01 Long term (current) use of anticoagulants (principal)

== ENCOUNTER → 2023-09-22 14:28 | Outpatient (BNVA) | payer MEDICARE, OTHER, SELFPAY | PROVIDERS: PCP Internal Medicine; Visit Provider Internal Medicine | DX: I48.0 Paroxysmal atrial fibrillation (principal); Z79.01 Long term (current) use of anticoagulants; Z51.81 Encounter for therapeutic drug level monitoring | CPT/HCPCS: 85610; 99211 ==

== ENCOUNTER 2023-10-12 14:38 | Outpatient (AMB) | payer MEDICARE, OTHER, SELFPAY ==
--- NOTE | 2023-10-12 14:46 | MHC.OFFVISCO ---
Intake Intake Visit Reasons: Anticoagulation Allergies mitomycin Allergy (Intermediate, Verified 10/12/23 14:39) Rash Medication List - Last Reconciled 10/12/23 by Lia Silveira RN acetaminophen (Tylenol) 650 mg PO QID PRN atorvastatin 10 mg PO DAILY calcium carbonate-vitamin D3 600 mg-5 mcg (200 unit) 1 tab PO BID diltiazem HCl CD 120 mg PO DAILY [L theanine 100 mg PO .hs PRN] loratadine 10 mg PO DAILY PRN melatonin 5 mg PO BEDTIME PRN mirtazapine 15 mg PO BEDTIME oxybutynin chloride ER 5 mg PO DAILY phenazopyridine 200 mg PO TID PRN psyllium (Metamucil) PO [sleep 3 PO .hs PRN] torsemide 10 mg PO .qod warfarin 5 mg See Protocol PO DAILY Nursing Note INR 4.2-?? out of therapeutic range of 2-3 Medications and supplements reviewed Patient status: pt states occ diarhhea- approx 3 times a week, pcp aware Medications or supplements: no changes Diet: appetite fair to good Denies any signs and symptoms of bleeding or clotting or unusual bruising Bleeding, bruising, clotting discussed Nutritional guidance given: eat greens to lower inr,has been eating more reds Dose: already took warfarin today, hold tomm then cont 5mg x 7 F/U INR Date : 1 week? Patient verbalizing understanding of instructions given. Anti-Coag Initial Assessment Social Hx Patient Tobacco Use Status: Never used Tobacco alcohol intake: current Alcohol intake frequency: 0-2 drinks per day (every day- bloody itz) Cardiovascular Hx: HTN and Arrhythmias (afib/aflutter) Endocrine Hx: Diabetes (pre diabetes) and Other (wheezing on exertion) Musculoskeletal Hx: Arthritis GI Hx: Hemorrhoids Hx: Kidney Disease and Bladder Disorders (history bladder cancer 2017) Cancer HX: Yes (cancer cervix, bladder) Psych. Illness/Depression: Yes Coding Level of Care Code Est Patient Level 1 Diagnoses Current use of anticoagulant therapy Z79.01 Assessment & Plan Assessment & Plan (1) Current use of anticoagulant therapy: Code(s): Z79.01 - skilled nursing (current) use of anticoagulants Category: Medical
[2023-10-12 14:47] LABS: Prothrombin Time Whole Bld POC 50.8 sec (11.1-13.5); ~PT, ~INR - Anti Coag Clinic 4.2 (0.9-1.1)
== END 2023-10-12 14:56 | disposition home or self-care (01) ==
LOC: HO.ACS 14:38
PROVIDERS: PCP Internal Medicine; Visit Provider Internal Medicine
DX: Z79.01 Long term (current) use of anticoagulants (principal)

== ENCOUNTER → 2023-10-12 14:38 | Outpatient (BNVA) | payer MEDICARE, OTHER, SELFPAY | PROVIDERS: PCP Internal Medicine; Visit Provider Internal Medicine | DX: I48.0 Paroxysmal atrial fibrillation (principal); Z79.01 Long term (current) use of anticoagulants; Z51.81 Encounter for therapeutic drug level monitoring | CPT/HCPCS: 85610; 99211 ==

== ENCOUNTER 2023-10-19 14:33 | Outpatient (AMB) | payer MEDICARE, OTHER, SELFPAY ==
[2023-10-19 14:42] LABS: Prothrombin Time Whole Bld POC 31.7 sec (11.1-13.5); ~PT, ~INR - Anti Coag Clinic 2.6 (0.9-1.1)
--- NOTE | 2023-10-19 14:50 | MHC.OFFVISCO ---
Intake Intake Visit Reasons: Anticoagulation Allergies mitomycin Allergy (Intermediate, Verified 10/19/23 14:36) Rash Medication List - Last Reconciled 10/19/23 by Anahy Vu, RN acetaminophen (Tylenol) 650 mg PO QID PRN atorvastatin 10 mg PO DAILY calcium carbonate-vitamin D3 600 mg-5 mcg (200 unit) 1 tab PO BID diltiazem HCl CD 120 mg PO DAILY [L theanine 100 mg PO .hs PRN] loratadine 10 mg PO DAILY PRN melatonin 5 mg PO BEDTIME PRN mirtazapine 15 mg PO BEDTIME oxybutynin chloride ER 5 mg PO DAILY phenazopyridine 200 mg PO TID PRN psyllium (Metamucil) PO [sleep 3 PO .hs PRN] torsemide 10 mg PO .qod warfarin 5 mg See Protocol PO DAILY Nursing Note NO FURTHER DIARRHEA. PT.DENIES ANY CP,SOB,DIET/MED CHANGES,FALLS OR SX OF BLEEDING. CONTINUE 5MGM DAILY AND FOLLOW-UP IN 3 WEEKS. GOOD UNDERSTANDING OF DOSING INSTR. Anti-Coag Initial Assessment Social Hx Patient Tobacco Use Status: Never used Tobacco alcohol intake: current Alcohol intake frequency: 0-2 drinks per day (every day- bloodGlazeon itz) Cardiovascular Hx: HTN and Arrhythmias (afib/aflutter) Endocrine Hx: Diabetes (pre diabetes) and Other (wheezing on exertion) Musculoskeletal Hx: Arthritis GI Hx: Hemorrhoids Hx: Kidney Disease and Bladder Disorders (history bladder cancer 2017) Cancer HX: Yes (cancer cervix, bladder) Psych. Illness/Depression: Yes Coding Level of Care Code Est Patient Level 1 Diagnoses Current use of anticoagulant therapy Z79.01 Assessment & Plan Assessment & Plan (1) Current use of anticoagulant therapy: Code(s): Z79.01 - long-term (current) use of anticoagulants Category: Medical
== END 2023-10-19 14:51 | disposition home or self-care (01) ==
LOC: HO.ACS 14:33
PROVIDERS: PCP Internal Medicine; Visit Provider Internal Medicine
DX: Z79.01 Long term (current) use of anticoagulants (principal)

== ENCOUNTER → 2023-10-19 14:33 | Outpatient (BNVA) | payer MEDICARE, OTHER, SELFPAY | PROVIDERS: PCP Internal Medicine; Visit Provider Internal Medicine | DX: I48.0 Paroxysmal atrial fibrillation (principal); Z79.01 Long term (current) use of anticoagulants; Z51.81 Encounter for therapeutic drug level monitoring | CPT/HCPCS: 85610; 99211 ==

== ENCOUNTER 2023-11-10 14:26 | Outpatient (AMB) | payer MEDICARE, OTHER, SELFPAY ==
[2023-11-10 14:37] LABS: Prothrombin Time Whole Bld POC 58.1 sec (11.1-13.5); ~PT, ~INR - Anti Coag Clinic 4.8 (0.9-1.1)
--- NOTE | 2023-11-10 14:52 | MHC.OFFVISCO ---
Intake Intake Visit Reasons: Anticoagulation Allergies mitomycin Allergy (Intermediate, Verified 11/10/23 14:28) Rash Medication List - Last Reconciled 11/10/23 by Annie Guzman RN acetaminophen (Tylenol) 650 mg PO QID PRN atorvastatin 10 mg PO DAILY calcium carbonate-vitamin D3 600 mg-5 mcg (200 unit) 1 tab PO BID diltiazem HCl CD 120 mg PO DAILY [L theanine 100 mg PO .hs PRN] loratadine 10 mg PO DAILY PRN melatonin 5 mg PO BEDTIME PRN mirtazapine 15 mg PO BEDTIME oxybutynin chloride ER 5 mg PO DAILY phenazopyridine 200 mg PO TID PRN psyllium (Metamucil) PO [sleep 3 PO .hs PRN] warfarin 5 mg See Protocol PO DAILY Nursing Note INR 4.8 out of therapeutic range Medications and supplements reviewed Patient status: Small amt of bruising on right arm, has been eating more cherries and melons lately Medications or supplements: torsemide d/c Diet: good Denies any signs and symptoms of bleeding or clotting or unusual bruising Bleeding, bruising, clotting discussed Nutritional guidance given: Review food list weekly, Eat greens today and weekly, because you enjoy the summer foods that raise your INR - your warfarin dose is going to be decreased Dose: hold today then decrease warfarin dose 2.5mg x 1 day/ 5mg x 6 days F/U INR Date: 2 weeks per daughter's request - instructed that if the pt has any more unusual bruising to call [facility] and have her INR checked next tue, tue or tue ?? Patient and daughter verbalize understanding of instructions given. Anti-Coag Initial Assessment Social Hx Patient Tobacco Use Status: Never used Tobacco alcohol intake: current Alcohol intake frequency: 0-2 drinks per day (every day- oneil mobley) Cardiovascular Hx: HTN and Arrhythmias (afib/aflutter) Endocrine Hx: Diabetes (pre diabetes) and Other (wheezing on exertion) Musculoskeletal Hx: Arthritis GI Hx: Hemorrhoids Hx: Kidney Disease and Bladder Disorders (history bladder cancer 2017) Cancer HX: Yes (cancer cervix, bladder) Psych. 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
== END 2023-11-10 14:58 | disposition home or self-care (01) ==
LOC: HO.ACS 14:26
PROVIDERS: PCP Internal Medicine; Visit Provider Internal Medicine
DX: Z79.01 Long term (current) use of anticoagulants (principal)

== ENCOUNTER → 2023-11-10 14:26 | Outpatient (BNVA) | payer MEDICARE, OTHER, SELFPAY | PROVIDERS: PCP Internal Medicine; Visit Provider Internal Medicine | DX: I48.0 Paroxysmal atrial fibrillation (principal); Z79.01 Long term (current) use of anticoagulants; Z51.81 Encounter for therapeutic drug level monitoring | CPT/HCPCS: 85610; 99211 ==

== ENCOUNTER 2023-11-24 09:23 | Outpatient (AMB) | payer MEDICARE, OTHER, SELFPAY ==
[2023-11-24 09:31] LABS: Prothrombin Time Whole Bld POC 17.6 sec (11.1-13.5); ~PT, ~INR - Anti Coag Clinic 1.5 (0.9-1.1)
--- NOTE | 2023-11-24 09:49 | MHC.OFFVISCO ---
Intake Intake Visit Reasons: Anticoagulation Allergies mitomycin Allergy (Intermediate, Verified 11/24/23 09:27) Rash Medication List - Last Reconciled 11/24/23 by Lizette Bejarano, RN acetaminophen (Tylenol) 650 mg PO QID PRN atorvastatin 10 mg PO DAILY calcium carbonate-vitamin D3 600 mg-5 mcg (200 unit) 1 tab PO BID diltiazem HCl CD 120 mg PO DAILY [L theanine 100 mg PO .hs PRN] loratadine 10 mg PO DAILY PRN melatonin 5 mg PO BEDTIME PRN mirtazapine 15 mg PO BEDTIME oxybutynin chloride ER 5 mg PO DAILY phenazopyridine 200 mg PO TID PRN psyllium (Metamucil) PO [sleep 3 PO .hs PRN] warfarin 5 mg See Protocol PO DAILY Nursing Note Pt to [facility] with use of walker accompanied by daughter INR 1.5?out of therapeutic range of 2-3 Upon review, pt's daughter, who manages pt's meds/pill box, said that the warfaring dose was decreased and has been holding the warfarin on Tuesdays. Instructions from last visit lists a decreased to 2.5mg on Tuesday's (previously 5mg) Patient status: well Medications or supplements: no changes Diet: usual diet for pt but has been eating more greens because her INR was high, 4.8 on last visit 2 weeks ago Denies any signs and symptoms of bleeding or clotting or unusual bruising Bleeding, bruising, clotting discussed Nutritional guidance given: to avoid greens today and tomorrow. Food list reviewed with pt and daughter Dose: increase today's dose to 7.5mg (5mg) then 5mg daily except 2.5mg on Tuesdays only F/U INR Date : 1 week?? Patient and daughter verbalizing understanding of instructions given T/C to Pt's MD Arelis Manley. Spoke to [facility]. Message given with critical INR, dosing plan and retest date. Anti-Coag Initial Assessment Social Hx Patient Tobacco Use Status: Never used Tobacco alcohol intake: current Alcohol intake frequency: 0-2 drinks per day (every day- oneil mobley) Cardiovascular Hx: HTN and Arrhythmias (afib/aflutter) Endocrine Hx: Diabetes (pre diabetes) and Other (wheezing on exertion) Musculoskeletal Hx: Arthritis GI Hx: Hemorrhoids Hx: Kidney Disease and Bladder Disorders (history bladder cancer 2017) Cancer HX: Yes (cancer cervix, bladder) Psych. Illness/Depression: Yes Coding Level of Care Code Est Patient Level 2 Diagnoses Current use of anticoagulant therapy Z79.01 Time Spent (min) 30 Comment time required to teach pt and daughter dosing plan and food list affecting the INR Assessment & Plan Assessment & Plan (1) Current use of anticoagulant therapy: Code(s): Z79.01 - [facility] (current) use of anticoagulants Category: Medical
== END 2023-11-24 10:02 | disposition home or self-care (01) ==
LOC: HO.ACS 09:23
PROVIDERS: PCP Internal Medicine; Visit Provider Internal Medicine
DX: Z79.01 Long term (current) use of anticoagulants (principal)

== ENCOUNTER → 2023-11-24 09:23 | Outpatient (BNVA) | payer MEDICARE, OTHER, SELFPAY | PROVIDERS: PCP Internal Medicine; Visit Provider Internal Medicine | DX: I48.0 Paroxysmal atrial fibrillation (principal); Z79.01 Long term (current) use of anticoagulants; Z51.81 Encounter for therapeutic drug level monitoring | CPT/HCPCS: 85610; 99212 ==

== ENCOUNTER 2023-12-02 15:05 | Outpatient (AMB) | payer MEDICARE, OTHER, SELFPAY ==
[2023-12-02 15:15] LABS: Prothrombin Time Whole Bld POC 25.7 sec (11.1-13.5); ~PT, ~INR - Anti Coag Clinic 2.1 (0.9-1.1)
--- NOTE | 2023-12-02 15:24 | MHC.OFFVISCO ---
Intake Intake Visit Reasons: Anticoagulation Allergies mitomycin Allergy (Intermediate, Verified 12/02/23 15:06) Rash Medication List - Last Reconciled 12/02/23 by Annie Guzman RN acetaminophen (Tylenol) 650 mg PO QID PRN atorvastatin 10 mg PO DAILY calcium carbonate-vitamin D3 600 mg-5 mcg (200 unit) 1 tab PO BID diltiazem HCl CD 120 mg PO DAILY [L theanine 100 mg PO .hs PRN] loratadine 10 mg PO DAILY PRN melatonin 5 mg PO BEDTIME PRN mirtazapine 15 mg PO BEDTIME oxybutynin chloride ER 5 mg PO DAILY phenazopyridine 200 mg PO TID PRN psyllium (Metamucil) PO [sleep 3 PO .hs PRN] warfarin 5 mg See Protocol PO DAILY Nursing Note INR: 2.1 in therapeutic range- previous visit pt misunderstood dosing and did not take warfarin x 1 day/ week- will try dose again Medications and supplements reviewed No changes in health, diet, medications, or supplements, Denies any signs and symptoms of bleeding or bruising or clotting. Bleeding, bruising, clotting discussed Nutritional guidance given- Resume usual Summer foods- she likes the food that can raise the INR - Dose: try dose again 2.5mg x 1 day /5mg x 6 days F/U INR: 2weeks Patient verbalizes understanding of instructions given Anti-Coag Initial Assessment Social Hx Patient Tobacco Use Status: Never used Tobacco alcohol intake: current Alcohol intake frequency: 0-2 drinks per day (every day- bloody itz) Cardiovascular Hx: HTN and Arrhythmias (afib/aflutter) Endocrine Hx: Diabetes (pre diabetes) and Other (wheezing on exertion) Musculoskeletal Hx: Arthritis GI Hx: Hemorrhoids Hx: Kidney Disease and Bladder Disorders (history bladder cancer 2017) Cancer HX: Yes (cancer cervix, bladder) Psych. Illness/Depression: Yes Coding Level of Care Code Est Patient Level 1 Diagnoses Current use of anticoagulant therapy Z79.01 Results AMB INR Fingerstick AMB INR Fingerstick 2.1 Last Edit by Annie Guzman RN on 12/02/23 15:19 MANUAL ENTRY Assessment & Plan Assessment & Plan (1) Current use of anticoagulant therapy: Code(s): Z79.01 - assisted (current) use of anticoagulants Category: Medical
== END 2023-12-02 15:29 | disposition home or self-care (01) ==
LOC: HO.ACS 15:05
PROVIDERS: PCP Internal Medicine; Visit Provider Internal Medicine
DX: Z79.01 Long term (current) use of anticoagulants (principal)

== ENCOUNTER → 2023-12-02 15:05 | Outpatient (BNVA) | payer MEDICARE, OTHER, SELFPAY | PROVIDERS: PCP Internal Medicine; Visit Provider Internal Medicine | DX: I48.0 Paroxysmal atrial fibrillation (principal); Z79.01 Long term (current) use of anticoagulants; Z51.81 Encounter for therapeutic drug level monitoring | CPT/HCPCS: 85610; 99211 ==

== ENCOUNTER 2023-12-16 15:05 | Outpatient (AMB) | payer MEDICARE, OTHER, SELFPAY ==
[2023-12-16 15:13] LABS: Prothrombin Time Whole Bld POC 45.2 sec (11.1-13.5); ~PT, ~INR - Anti Coag Clinic 3.8 (0.9-1.1)
--- NOTE | 2023-12-16 15:39 | MHC.OFFVISCO ---
Intake Intake Visit Reasons: Anticoagulation Allergies mitomycin Allergy (Intermediate, Verified 12/02/23 15:06) Rash Nursing Note PT.SAW TODAY(CARDIOLOGY)AND HE HAS PRESCRIBED ELIQUIS. SCRIPT IS CALLED IN, AND PT.WILL MEDICAL AND SCIENTIFIC ILLUSTRATOR IF IT IS AFFORDABLE TO HER. IN MEANTIME SHE WILL HOLD WARFARIN ON 12/16 AND 12/17(TOOK DOSE ALREADY TODAY) AND FOLLOW-UP HERE ON 12/18 AT 3PM. PT.AND DAUGHTER AWARE NOT TO START ELIQUIS UNTIL AFTER INR CHECK ON 12/18. PT.DENIES ANY CP,SOB OR SX OF BLEEDING. INR REPORTED TO AT HIS REQUEST, AND PLAN OF CARE DISCUSSED AND AGREED UPON. Anti-Coag Initial Assessment Social Hx Patient Tobacco Use Status: Never used Tobacco alcohol intake: current Alcohol intake frequency: 0-2 drinks per day (every day- bloody itz) Cardiovascular Hx: HTN and Arrhythmias (afib/aflutter) Endocrine Hx: Diabetes (pre diabetes) and Other (wheezing on exertion) Musculoskeletal Hx: Arthritis GI Hx: Hemorrhoids Hx: Kidney Disease and Bladder Disorders (history bladder cancer 2017) Cancer HX: Yes (cancer cervix, bladder) Psych. Illness/Depression: Yes Coding Level of Care Code Est Patient Level 1 Diagnoses Current use of anticoagulant therapy Z79.01 Assessment & Plan Assessment & Plan (1) Current use of anticoagulant therapy: Code(s): Z79.01 - assisted (current) use of anticoagulants Category: Medical
== END 2023-12-16 16:05 | disposition home or self-care (01) ==
LOC: HO.ACS 15:05
PROVIDERS: PCP Internal Medicine; Visit Provider Internal Medicine
DX: Z79.01 Long term (current) use of anticoagulants (principal)

== ENCOUNTER → 2023-12-16 15:05 | Outpatient (BNVA) | payer MEDICARE, OTHER, SELFPAY | PROVIDERS: PCP Internal Medicine; Visit Provider Internal Medicine | DX: I48.0 Paroxysmal atrial fibrillation (principal); Z79.01 Long term (current) use of anticoagulants; Z51.81 Encounter for therapeutic drug level monitoring | CPT/HCPCS: 85610; 99211 ==

== ENCOUNTER 2023-12-19 15:02 | Outpatient (AMB) | payer MEDICARE, OTHER, SELFPAY ==
--- NOTE | 2023-12-19 15:07 | MHC.OFFVISCO ---
Intake Intake Visit Reasons: Anticoagulation Allergies mitomycin Allergy (Intermediate, Verified 12/19/23 15:03) Rash Medication List - Last Reconciled 12/19/23 by Lia Silveira RN acetaminophen (Tylenol) 650 mg PO QID PRN apixaban 5 mg PO BID atorvastatin 10 mg PO DAILY calcium carbonate-vitamin D3 600 mg-5 mcg (200 unit) 1 tab PO BID diltiazem HCl CD 120 mg PO DAILY [L theanine 100 mg PO .hs PRN] loratadine 10 mg PO DAILY PRN melatonin 5 mg PO BEDTIME PRN mirtazapine 15 mg PO BEDTIME oxybutynin chloride ER 5 mg PO DAILY phenazopyridine 200 mg PO TID PRN psyllium (Metamucil) PO [sleep 3 PO .hs PRN] warfarin 5 mg See Protocol PO DAILY Nursing Note INR 1.3-?? out of therapeutic range of 2-3 Medications and supplements reviewed Patient status: pt amb with walker Medications or supplements: pt starting eliquis today Diet: same Denies any signs and symptoms of bleeding or clotting or unusual bruising Bleeding, bruising, clotting discussed Nutritional guidance given: n/a Dose: pt held warfarin sat and sun. begin eliquis tonight, then twice per day, stop warfarin F/U INR Date : n/a Patient verbalizing understanding of instructions given. dr renae cardiology called to inform of inr, warfarin d/c and pt starting eliqis today. spoke to [facility] Anti-Coag Initial Assessment Social Hx Patient Tobacco Use Status: Never used Tobacco alcohol intake: current Alcohol intake frequency: 0-2 drinks per day (every day- bloody itz) Cardiovascular Hx: HTN and Arrhythmias (afib/aflutter) Endocrine Hx: Diabetes (pre diabetes) and Other (wheezing on exertion) Musculoskeletal Hx: Arthritis GI Hx: Hemorrhoids Hx: Kidney Disease and Bladder Disorders (history bladder cancer 2017) Cancer HX: Yes (cancer cervix, bladder) Psych. Illness/Depression: Yes Coding Level of Care Code Est Patient Level 1 Diagnoses Current use of anticoagulant therapy Z79.01 Assessment & Plan Assessment & Plan (1) Current use of anticoagulant therapy: Code(s): Z79.01 - [facility] (current) use of anticoagulants Category: Medical
[2023-12-19 15:08] LABS: ~PT, ~INR - Anti Coag Clinic 1.3 (0.9-1.1)
== END 2023-12-19 15:33 | disposition home or self-care (01) ==
LOC: HO.ACS 15:02
PROVIDERS: PCP Internal Medicine; Visit Provider Internal Medicine
DX: Z79.01 Long term (current) use of anticoagulants (principal)

== ENCOUNTER → 2023-12-19 15:02 | Outpatient (BNVA) | payer MEDICARE, OTHER, SELFPAY | PROVIDERS: PCP Internal Medicine; Visit Provider Internal Medicine | DX: I48.0 Paroxysmal atrial fibrillation (principal); Z79.01 Long term (current) use of anticoagulants; Z51.81 Encounter for therapeutic drug level monitoring | CPT/HCPCS: 85610; 99211 ==

== ENCOUNTER 2024-09-10 09:04 | Emergency (ER) | payer MEDICARE, OTHER, SELFPAY ==
--- NOTE | ~2024-09-10 | CT_ITS ---
EXAMINATION: CT HEAD WITHOUT CONTRAST CLINICAL INFORMATION: Confusion x1.5 weeks. COMPARISON: 01/15/2021. TECHNIQUE: Contiguous axial imaging was performed from the skull base to vertex without intravenous administration of contrast. This CT examination was performed using dose optimization techniques as appropriate, variously including the following: *Automated exposure control *Adjustment of mA and/or kV according to patient size (this includes techniques or standardized protocols for targeted exams where dose is matched to indication/reason for exam; i.e. extremities or head) *Use of iterative reconstruction technique FINDINGS: There is no evidence of intracranial hemorrhage or extra-axial fluid collection. There is no mass effect, or edema. No CT evidence of acute territorial infarct. Ventricles, sulci, and cisterns are mildly diffusely prominent, with more significant frontoparietal atrophic changes. Prominent extra-axial spaces overlying the frontoparietal convexities. No hydrocephalus. No midline shift. Negative hyperdense MCA sign. Negative insular ribbon sign. Patchy periventricular and deep white matter hypoattenuation is consistent with mild small vessel ischemic changes. Empty sella. Mild atheromatous calcification of the bilateral carotid siphons . Globes and orbital contents image normally. Bilateral lens replacements. No extracranial soft tissue abnormalities. The paranasal sinuses, mastoid air cells, and tympanic cavities are normally aerated. No suspicious bony abnormalities. There are no acute fractures evident. Degenerative changes left TM joint. CT/CT head/brain wo IV con IMPRESSION: 1. No acute intracranial abnormality. 2. Frontoparietal atrophy. Electronically signed by: Amadeo Sanchez MD 09/10/2024 03:45 PM EDT
--- NOTE | ~2024-09-10 | XR_ITS ---
EXAMINATION: XR CHEST CLINICAL INFORMATION: ams COMPARISON: 01/15/2021 CTPA. TECHNIQUE: AP view of the chest was obtained. FINDINGS: There is probable mild cardiac enlargement. Mediastinal and hilar contours appear normal. Aortic mural calcifications. Lungs are mildly hyperaerated. There is chronically elevated left hemidiaphragm with left basilar mild atelectasis or scarring. There is mild linear atelectasis in the left lateral midlung. There is no pneumonic consolidation. Lungs otherwise clear. No pneumothorax or effusion. No focal osseous or soft tissue abnormality. XR/XR chest 1V IMPRESSION: No active pulmonary disease. Electronically signed by: Amadeo Sanchez MD 09/10/2024 02:57 PM EDT
[2024-09-10 09:15] VITALS: BP 130/69; PULSE 77; RESP 18; TEMP 36.6; O2SAT 96; BMI 35.9
[2024-09-10 09:41] LABS: MANUAL DIFF FLAG NO
[2024-09-10 09:44] LABS: Basophils Absolute Auto 0.1 X10*3/uL (0.0-0.2); Basophils Percent Auto 0.7 % (0-2); Eosinophils Absolute Auto 0.3 X10*3/uL (0.0-0.4); Eosinophils Percent Auto 3.4 % (0-4); Hematocrit 42.4 % (37.0-47.0); Imm Gran Abs Auto 0.03 X10*3/uL (0.00-0.03); Imm Gran Pct Auto 0.3 % (0.0-0.4); Lymphocytes Absolute Auto 1.9 X10*3/uL (1.2-4.9); Lymphocytes Percent Auto 21.5 % (20-40); Mean Corpuscular Hemoglobin 30.6 pg (27.0-33.0); Mean Corpuscular Volume 92.6 fL (80.0-98.0); Mean Platelet Volume 9.6 fL (9.4-12.3); Monocytes Absolute Auto 0.9 X10*3/uL (0.1-1.2); Monocytes Percent Auto 9.5 % (2-11); Neutrophils Absolute Auto 5.8 x10*3/uL (2.0-8.3); Neutrophils Percent Auto 64.6 % (45-73); Platelet Count 293 X10*3/uL (160-400); Red Blood Count 4.58 X10*6/uL (4.20-5.50); Red Cell Distribution Width 14.2 % (11.0-16.0)
[2024-09-10 10:02] LABS: Anion Gap 15 (12-20); Blood Urea Nitrogen 18 mg/dL (9-16); Calcium 11.9 mg/dL (8.4-10.2); Carbon Dioxide 24 mmol/L (22-29); Chloride 104 mmol/L (96-108); Creatinine Clr Calc Pharmacy 36.9; Estimated Glomerular Filt Rate 38; Glucose Random 94 mg/dL (60-115); Potassium 3.6 mmol/L (3.3-5.1); Sodium 139 mmol/L (135-145)
[2024-09-10 10:35] LABS: Appearance Urine Clear; Color Urine Yellow; Glucose Urine UA Negative (Negative); Leukocyte Esterase Urine Moderate (2+) (Negative); Nitrite Urine Negative (Negative); PH 6.5 (5.0-9.0); UMIC TRIGGER UACC YES; Urine Blood Small (1+) (Negative); Urine Ketones Negative (Negative); Urine Protein Negative (Neg-Trace)
[2024-09-10 10:44] LABS: Bacteria Urine None Seen (None Seen); Hyaline Casts Urine 0-2 /LPF (0-2); RBC Urine 0-2 /HPF (0-2); UACC Culture Trigger YES
--- NOTE | 2024-09-10 14:00 | ED_ITS ---
HPI - Neuro Symptoms/Deficit General Chief Complaint: Neuro Symptoms/Deficit Stated Complaint: confusion Time Seen by Provider: 09/10/24 13:50 Source: patient, family, RN notes reviewed and old records reviewed History of Present Illness ED Provider: Germaine Al PA-C HPI Narrative: 78-year-old female with a past medical history of HTN presenting to the ED with daughter complaining of increased confusion/AMS x1.5 weeks. Daughter states patient is typically sharp as a tack and noted some difficulty doing/remembering things which is not typical for patient. Patient herself denies complaints. Denies fever, chills, recent illness, cough, CP/SOB, abdominal pain, nausea/vomiting, dysuria/hematuria, injury/falls or head trauma Related Data Home Medications ?Medication ?Instructions ?Recorded ?Confirmed acetaminophen 325 mg tablet 650 mg PO QID PRN Pain 01/15/21 12/02/23 (Tylenol) melatonin 5 mg tablet 5 mg PO BEDTIME PRN Insomnia 01/15/21 12/02/23 oxybutynin chloride 5 mg 5 mg PO DAILY 01/15/21 12/02/23 tablet,extended release 24 hr L theanine 100 mg PO .hs PRN 08/16/22 12/02/23 calcium 600 mg (as 1 tab PO BID 08/16/22 12/02/23 carbonate)-vitamin D3 5 mcg (200 unit) tablet diltiazem HCl 120 mg 120 mg PO DAILY 08/16/22 12/02/23 capsule,extended release 24 hr loratadine 10 mg tablet 10 mg PO DAILY PRN allergic 08/16/22 12/02/23 symptoms mirtazapine 15 mg tablet 15 mg PO BEDTIME 08/16/22 12/02/23 phenazopyridine 200 mg tablet 200 mg PO TID PRN spasms 08/16/22 12/02/23 sleep 3 PO .hs PRN 08/16/22 12/02/23 psyllium [Metamucil] PO 04/06/23 12/02/23 atorvastatin 10 mg tablet 10 mg PO DAILY 07/07/23 12/02/23 apixaban 5 mg tablet 5 mg PO BID 12/19/23 12/19/23 Allergies Allergy/AdvReac Type Severity Reaction Status Date / Time mitomycin Allergy Intermediate Rash Verified 09/10/24 09:19 Review of Systems 2 Review of Systems: Yes all other systems are reviewed and are negative Constitutional: Constitutional: Reports as per HPI Neurologic: Denies Abnormal speech present [facility] Past Medical History Attestation statement: The following information was validated with the patient. 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 Current occupational exposures/hazards: No Physical Exam 2 Vital Signs: Vital Signs: Last Vital Signs Temp 97.8 F 09/10/24 09:15 Pulse 75 09/10/24 15:55 Resp 18 09/10/24 15:55 BP 133/67 09/10/24 15:55 Pulse Ox 95 09/10/24 15:55 O2 Del Method Room Air 09/10/24 15:55 BMI result Body Mass Index 35.9 Const: General: cooperative, healthy appearing and no acute distress O rientation/consciousness: patient oriented x3 Limitations: no limitations HEENT: Head: Yes normal to inspection and Yes atraumatic Ears: hearing grossly normal bilaterally General nose exam: Normal external nose present Face and sinus: Yes normal facial exam Eyes: General: appearance normal, both eyes and all related structures EOM: EOMs intact bilaterally Neck: Neck: Yes normal visual inspection and Yes no meningeal signs Resp: Effort & Inspection: normal respiratory effort and no respiratory distress Auscultation: clear to auscultation bilaterally, no crackles, no rales, no rhonchi and no wheezes Cardio: Rate: regular rate Heart sounds: S1 normal heart sound present and S2 normal heart sound present GI: Inspection: Yes normal to inspection Palpation (GI): Soft to palpation, nontender, no guarding and not rigid : General: Yes no CVA tenderness Back/Spine/Pelvis: Back: no CVA tenderness Skin: Rashes: no rashes Wounds: no wounds Neuro: General: patient oriented x3, gait normal, tone normal, moves all extremities, no meningeal signs, no focal motor deficits and CN's II-XI intact bilaterally Cranial nerves: Yes CN's II-XII intact bilaterally and Yes Bilaterally intact EOM present Cognition (Neuro): normal cognition Speech: No Abnormal speech present Gait exam (Neuro): Normal gait present Motor exam (neuro): 5/5 motor strength present throughout Coordination: f [id number] test normal Romberg Test: Negative Extrem: General: Yes normal to inspection Course Course Course Narrative: -1613--labs reassuring. Ammonia WNL. Initial troponin 7.3 > will obtain repeat -UA with small blood, leuk esterase, wbc's > will treat with p.o. Ceftin -viral testing negative XR chest 1V IMPRESSION: No active pulmonary disease. CT head/brain wo IV con IMPRESSION: 1. No acute intracranial abnormality. 2. Frontoparietal atrophy. > 1714--repeat troponin without rise, mi unlikely. Results discussed with patient and daughter at bedside. Likely needs outpatient MRI. Patient does not meet inpatient criteria at this time. Results discussed with patient including worrisome signs and symptoms and strict return precautions, and when to return to the emergency department. They verbalized understanding and feel safe for discharge at this time. Medications Administered Discontinued Medications Generic Name Dose Route Start Last Admin Trade Name Freq PRN Reason Stop Dose Admin Cefuroxime Axetil 250 mg 09/10/24 16:14 09/10/24 17:08 Cefuroxime Axetil 250 Mg Tablet PO 09/10/24 16:15 250 mg ONCE ONE Administration Medical Decision Making Medical Decision Making [facility] Narrative: 78-year-old female with a past medical history of HTN presenting to the ED with daughter complaining of increased confusion/AMS x1.5 weeks. Daughter states patient is typically sharp as a tack and noted some difficulty doing/remembering things which is not typical for patient. On exam vital signs stable, NAD, nontoxic appearing, no focal neuro deficits, A&O x3. Acting appropriate. Concern for subacute CVA vs infectious etiology vs encephalopathy vs metabolic abnormalities. Low suspicion for ICH, acute CVA, ACS Plan: EKG, labs, UA, viral testing, CXR, head CT, re-evaluate Please refer to course for remaining clinical decision making, interpretation of labs/imaging results, and discussions with consultants and/or family members. Differential Diagnosis Differential Diagnoses: The differential diagnosis associated with the presentation includes As above Admission/Observation Consideration of admission/observation: Escalation of care including admission/observation considered Lab Data MDM Lab Attestation statement: I reviewed the patient's lab results. 09/10/24 09:27 09/10/24 09:27 Labs: Lab Results 09/10/24 09/10/24 09/10/24 Range/Units 09:27 10:29 14:36 WBC 9.0 (4.8-10.8) X10*3/uL RBC 4.58 (4.20-5.50) X10*6/uL Hgb 14.0 (12.0-16.0) g/dl Hct 42.4 (37.0-47.0) % MCV 92.6 (80.0-98.0) fL MCH 30.6 (27.0-33.0) pg MCHC 33.0 (31.0-35.0) g/dl RDW 14.2 (11.0-16.0) % Plt Count 293 (160-400) X10*3/uL MPV 9.6 (9.4-12.3) fL Immature Gran % (Auto) 0.3 (0.0-0.4) % Neut % (Auto) 64.6 (45-73) % Lymph % (Auto) 21.5 (20-40) % [place] % (Auto) 9.5 (2-11) % Eos % (Auto) 3.4 (0-4) % Baso % (Auto) 0.7 (0-2) % Lymph # (Auto) 1.9 (1.2-4.9) X10*3/uL [place] # (Auto) 0.9 (0.1-1.2) X10*3/uL Eos # (Auto) 0.3 (0.0-0.4) X10*3/uL Baso # (Auto) 0.1 (0.0-0.2) X10*3/uL Abs Immat Gran (auto) 0.03 (0.00-0.03) X10*3/uL Absolute Neuts (auto) 5.8 (2.0-8.3) x10*3/uL Absolute Nucleated RBC 0.000 (0.0-0.012) X10*3/uL Nucleated RBC % (auto) 0.0 (0.0-0.2) /100WBC Sodium 139 (135-145) mmol/L Potassium 3.6 (3.3-5.1) mmol/L Chloride 104 (96-108) mmol/L Carbon Dioxide 24 (22-29) mmol/L Anion Gap 15 (12-20) BUN 18 H (9-16) mg/dL Creatinine 1.33 (0.5-1.4) mg/dL Estim Creat Clear Calc 36.9 Estimated GFR 38 Random Glucose 94 (60-115) mg/dL Calcium 11.9 H D (8.4-10.2) mg/dL Magnesium 1.9 (1.6-2.6) mg/dL Total Bilirubin 0.8 (0.0-1.0) mg/dL Direct Bilirubin 0.3 (0.0-0.5) mg/dL AST 30 (5-31) U/L ALT 11 (0-31) U/L Alkaline Phosphatase 73 (39-117) U/L Ammonia 44 (13-55) umol/L Troponin I High Sens 7.3 (<3.5-17.0) ng/L Total Protein 7.5 (6.5-8.0) g/dL Albumin 3.8 (3.5-5.0) g/dL Urine Color Yellow Urine Appearance Clear Urine pH 6.5 (5.0-9.0) Ur Specific [place] 1.010 (1.005-1.025) Urine Protein Negative (Neg-Trace) mg/dL Urine Glucose (UA) Negative (Negative) mg/dL Urine Ketones Negative (Negative) mg/dL Urine Blood Small (1+) H (Negative) Urine Nitrite Negative (Negative) Ur Leukocyte Esterase Moderate (2+) H (Negative) Urine RBC 0-2 (0-2) /HPF Urine WBC 6-10 (0-5) /HPF Ur Squamous Epith Cells 3-5 (0-2) /HPF Urine Bacteria None Seen (None Seen) Hyaline Casts 0-2 (0-2) /LPF Influenza Type A (PCR) NEGATIVE (Negative) Influenza Type B (PCR) NEGATIVE (Negative) RSV RNA Qual (PCR) NEGATIVE (Negative) SARS-CoV-2 RNA (RT-PCR) NEGATIVE (Negative) 09/10/24 Range/Units 16:41 WBC (4.8-10.8) X10*3/uL RBC (4.20-5.50) X10*6/uL Hgb (12.0-16.0) g/dl Hct (37.0-47.0) % MCV (80.0-98.0) fL MCH (27.0-33.0) pg MCHC (31.0-35.0) g/dl RDW (11.0-16.0) % Plt Count (160-400) X10*3/uL MPV (9.4-12.3) fL Immature Gran % (Auto) (0.0-0.4) % Neut % (Auto) (45-73) % Lymph % (Auto) (20-40) % [place] % (Auto) (2-11) % Eos % (Auto) (0-4) % Baso % (Auto) (0-2) % Lymph # (Auto) (1.2-4.9) X10*3/uL [place] # (Auto) (0.1-1.2) X10*3/uL Eos # (Auto) (0.0-0.4) X10*3/uL Baso # (Auto) (0.0-0.2) X10*3/uL Abs Immat Gran (auto) (0.00-0.03) X10*3/uL Absolute Neuts (auto) (2.0-8.3) x10*3/uL Absolute Nucleated RBC (0.0-0.012) X10*3/uL Nucleated RBC % (auto) (0.0-0.2) /100WBC Sodium (135-145) mmol/L Potassium (3.3-5.1) mmol/L Chloride (96-108) mmol/L Carbon Dioxide (22-29) mmol/L Anion Gap (12-20) BUN (9-16) mg/dL Creatinine (0.5-1.4) mg/dL Estim Creat Clear Calc Estimated GFR Random Glucose (60-115) mg/dL Calcium (8.4-10.2) mg/dL Magnesium (1.6-2.6) mg/dL Total Bilirubin (0.0-1.0) mg/dL Direct Bilirubin (0.0-0.5) mg/dL AST (5-31) U/L ALT (0-31) U/L Alkaline Phosphatase (39-117) U/L Ammonia (13-55) umol/L Troponin I High Sens 7.6 (<3.5-17.0) ng/L Total Protein (6.5-8.0) g/dL Albumin (3.5-5.0) g/dL Urine Color Urine Appearance Urine pH (5.0-9.0) Ur Specific [place] (1.005-1.025) Urine Protein (Neg-Trace) mg/dL Urine Glucose (UA) (Negative) mg/dL Urine Ketones (Negative) mg/dL Urine Blood (Negative) Urine Nitrite (Negative) Ur Leukocyte Esterase (Negative) Urine RBC (0-2) /HPF Urine WBC (0-5) /HPF Ur Squamous Epith Cells (0-2) /HPF Urine Bacteria (None Seen) Hyaline Casts (0-2) /LPF Influenza Type A (PCR) (Negative) Influenza Type B (PCR) (Negative) RSV RNA Qual (PCR) (Negative) SARS-CoV-2 RNA (RT-PCR) (Negative) Independent Interpretation I performed an independent interpretation of an: EKG, Plain X-Ray and CT Scan Radiology Impression Discussion of test interpretation with radiology: I have reviewed the radiologist's reading. Independent Historian Clinical information obtained from an independent historian. History obtained from or confirmed by: Other (Daughter) External Record Review External record reviewed: Inpatient record, Office record, Outpatient record, Prior outpatient labs, Prior outpatient radiology, Primary care record and Outside ED record Tests considered The following testing was considered but not selected: As above Prescription Management I considered prescription management with: Other Chronic Conditions Patient?s care impacted by: Hypertension Social Determinants Patient?s care significantly limited by Social Determinants of Health including: Other Social Determinant of Health Discharge Plan Discharge Clinical Impression: Acute UTI Prescriptions: No Action oxybutynin chloride 5 mg Tablet Extended Release 24hr 5 mg PO DAILY melatonin 5 mg Tablet 5 mg PO BEDTIME PRN (Reason: Insomnia) acetaminophen [Tylenol] 325 mg Tablet 650 mg PO QID PRN (Reason: Pain) psyllium [Metamucil] PO apixaban 5 mg tablet 5 mg PO BID diltiazem HCl 120 mg capsule,extended release 24hr 120 mg PO DAILY loratadine 10 mg tablet 10 mg PO DAILY PRN (Reason: allergic symptoms) phenazopyridine 200 mg tablet 200 mg PO TID PRN (Reason: spasms) mirtazapine 15 mg tablet 15 mg PO BEDTIME L theanine 100 mg PO .hs PRN sleep 3 PO .hs PRN calcium carbonate-vitamin D3 600 mg-5 mcg (200 unit) tablet 1 tab PO BID atorvastatin 10 mg tablet 10 mg PO DAILY Print Language: Turkish
--- NOTE | 2024-09-10 14:42 | ECG_ITS ---
Test Reason : ams Blood Pressure : */* mmHG Vent. Rate : 76 BPM Atrial Rate : 76 BPM P-R Int : 136 ms QRS Dur : 80 ms QT Int : 372 ms P-R-T Axes : 36 -27 18 degrees QTcB Int : 418 ms Normal sinus rhythm Normal ECG When compared with ECG of 15-Jan-2021 09:04, No significant change was found Referred By: Germaine Al Electronically Signed By: Sam Crespo
[2024-09-10 14:51] LABS: Ammonia 44 umol/L (13-55)
[2024-09-10 14:52] LABS: Alanine Aminotransferase 11 U/L (0-31); Albumin Level 3.8 g/dL (3.5-5.0); Aspartate Amino Transferase 30 U/L (5-31); Bilirubin Direct 0.3 mg/dL (0.0-0.5); Bilirubin Total 0.8 mg/dL (0.0-1.0); Magnesium 1.9 mg/dL (1.6-2.6); Total Protein 7.5 g/dL (6.5-8.0)
[2024-09-10 14:54] LABS: Troponin-I High Sensitivity 7.3 ng/L (<3.5-17.0)
[2024-09-10 15:08] LABS: Alkaline Phosphatase 73 U/L (39-117)
[2024-09-10 15:25] LABS: Influenza A PCR NEGATIVE (Negative); Influenza B PCR NEGATIVE (Negative); Resp Syncy Virus RNA Qual PCR NEGATIVE (Negative); SARS COV2 PCR INHOUSE NEGATIVE (Negative)
[2024-09-10 15:55] VITALS: BP 133/67; PULSE 75; RESP 18; O2SAT 95
--- OUTSIDE RECORDS SUMMARY | 2024-09-10 15:58 | XMS_ITS | Encounter Summary ---
Author Organization [employer] [facility] Address [address] [facility] [place] [address] Care Team Providers Care Voice Systems Engineer Name Role Phone Arelis Manley MD Primary Care Provider [phone] Lb Saenz MD Unavailable [phone] Maci Biswas NP Unavailable [phone] Encounter Details Date Type Department Care Team Description 11/19/2022 SCAN Medical Records [address] [place] [address] Abstract, Provider Social History Tobacco Use Types Packs/Day Years Used Date Smoking Tobacco: Never Smokeless Tobacco: Never Alcohol Use Standard Drinks/Week Comments Yes 0 (1 standard drink = 0.6 oz pure alcohol) 3 days per week mixed vodka. 1 quart lasts 2 weeks Sex Assigned at Date Recorded Not on file Job Start Date Occupation Industry Not on file Not on file Not on file documented as of this encounter Plan of Treatment Not on file documented as of this encounter Procedures Procedure Name Priority Date/Time Associated Diagnosis Comments OUTSIDE LAB Routine 11/19/2022 documented in this encounter Results * OUTSIDE LAB (11/19/2022) Provider Default LAB documented in this encounter Visit Diagnoses Not on filedocumented in this encounter Care Teams Voice Systems Engineer Relationship Specialty Start Date End Date Arelis Manley MD [address] [place] [address] PCP - General Internal Medicine 11/15/21 Lb Saenz MD [address] [place] [address] Specialist Cardiology 06/02/22 Maci Biswas NP [address] [place] [id number] Cardiology 06/08/23 12/14/23 documented as of this encounter
--- OUTSIDE RECORDS SUMMARY | 2024-09-10 15:58 | XMS_ITS | Encounter Summary ---
Author Organization [facility] Address [address] [place] [address] Care Team Providers Care Decorating Supervisor Name Role Phone Lise Pack MD Primary Care Provider Unavail able Arelis Manley MD Primary Care Provider [phone] Lb Saenz MD Unavailable [phone] Maci Biswas NP Unavailable [phone] Encounter Details Date Type Department Care Team Description 01/05/2018 Hospital Medical Records [address] [place] [address] Tj Hilton MD Social History Tobacco Use Types Packs/Day Years [...] on file documented as of this encounter Visit Diagnoses Not on filedocumented in this encounter Care Teams Decorating Supervisor Relationship Specialty Start Date End Date Lise Pack MD PCP - General Internal Medicine 06/10/17 03/29/21 Arelis Manley MD [address] [place] [id number] PCP - General Internal Medicine 03/30/21 Lb Saenz MD [address] [place] [address] Specialist Cardiology 06/02/22 Maci Biswas NP [address] [place] [address] Cardiology 06/08/23 12/14/23 documented as of this encounter
--- OUTSIDE RECORDS SUMMARY | 2024-09-10 15:58 | XMS_ITS | Encounter Summary ---
Author Organization [facility] [employer] Address [address] [place] [address] Care Team Providers Care Engine Assembler Name Role Phone Arelis Manley MD Primary Care Provider [phone] Lb Saenz MD Unavailable [phone] Maci Biswas NP Unavailable [phone] Encounter Details Date Type Department Care Team Description 11/30/2022 Hospital Medical Records [address] [place] [address] Social History Tobacco Use Types Packs/Day Years [...] Name Priority Date/Time Associated Diagnosis Comments OUTSIDE EKG Routine 12/01/2022 OUTSIDE ECHO Routine 12/01/2022 OUTSIDE LAB Routine 12/01/2022 OUTSIDE EKG Routine 11/30/2022 OUTSIDE ECHO Routine 11/30/2022 OUTSIDE ECHO Routine 11/30/2022 documented in this encounter Results * OUTSIDE LAB (12/01/2022) Provider Default LAB * OUTSIDE EKG (12/01/2022) Provider Default CARDIOLOGY * OUTSIDE ECHO (12/01/2022) Provider Default CARDIOLOGY * OUTSIDE ECHO (11/30/2022) Provider Default CARDIOLOGY * OUTSIDE ECHO (11/30/2022) Provider Default CARDIOLOGY * OUTSIDE EKG (11/30/2022) Provider Default CARDIOLOGY documented in this encounter Visit Diagnoses Not on filedocumented in this encounter Care Teams Engine Assembler Relationship Specialty Start Date End Date Arelis Manley MD [address] [place] [address] PCP - General Internal Medicine 03/30/21 Lb Saenz MD [address] [place] [address] Specialist Cardiology 06/02/22 Maci Biswas NP [address] [place] [address] Cardiology 06/08/23 12/14/23 documented as of this encounter
--- OUTSIDE RECORDS SUMMARY | 2024-09-10 15:58 | XMS_ITS | Encounter Summary ---
Author Organization [facility] Address [address] [address] Care Team Providers Care Terminal Carman Name Role Phone Lise Pack MD Primary Care Provider Unavail able Arelis Manley MD Primary Care Provider [phone] Lb Saenz MD Unavailable [phone] Maci Biswas NP Unavailable [phone] Encounter Details Date Type Department Care Team Description 01/17/2018 Rail Filler Report Medical Records [address] [place] [address] Tj Hilton MD Social History Tobacco Use [...] on filedocumented in this encounter Care Teams Terminal Carman Relationship Specialty Start Date End Date Lise Pack MD PCP - General Internal Medicine 06/10/17 03/29/21 Arelis Manley MD [address] [place] [id number] PCP - General Internal Medicine 03/30/21 Lb Saenz MD [address] [place] [address] Specialist Cardiology 06/02/22 Maci Biswas NP [address] [place] [address] Cardiology 06/08/23 12/14/23 documented as of this encounter
--- OUTSIDE RECORDS SUMMARY | 2024-09-10 15:59 | XMS_ITS | Encounter Summary ---
Author Organization [facility] [employer] [facility] Address [address] [place] [address] Care Team Providers Care Travel Information Center Supervisor Name Role Phone Arelis Manley MD Primary Care Provider [phone] Lb Saenz MD Unavailable [phone] Maci Biswas NP Unavailable [phone] Reason for Visit * Reason Onset Date Comments Medication 08/11/2022 Starting coumadi n. Encounter Details Date Type Department Care Team Description 08/11/2022 Telephone Cardio [address] [facility] [address] [place] [address] Lb Saenz MD [address] [place] [address] Medication (Starting coumadin.) Social History Tobacco Use Types Packs/Day Years Used Date Smoking Tobacco: Never Smokeless Tobacco: Never Alcohol Use Standard Drinks/Week Comments Yes 0 (1 standard drink = 0.6 oz pure alcohol) 3 days per week mixed vodka. 1 quart lasts 2 weeks Sex Assigned at Date Recorded Not on file Job Start Date Occupation Industry Not on file Not on file Not on file COVID-19 Exposure Response Date Recorded In the last 10 days, have yo u been in contact with someone who was confirmed or suspected to have Coronavirus/COVID-19? No / Unsure 08/06/2022 2:22 PM EDT documented as of this encounter Miscellaneous Notes * Telephone Encounter - Jeremy Fraga C.M.A. - 08/11/2022 12:34 PM EDT Pt called as she couldn't afford Eliquis and started coumadin tue 08/10/22 and would like to go to [place] coumadin [facility]. I called over to [facility] and they will be following the pt. They also need a form filled out so they will be faxing it to me and I will fill it out and send it back to them. documented in this encounter Plan of Treatment Not on file documented as of this encounter Visit Diagnoses Diagnosis Atrial flutter, unspecified type (HCC) documented in this encounter Care Teams Travel Information Center Supervisor Relationship Specialty Start Date End Date Arelis Manley MD [address] [place] [address] PCP - General Internal Medicine 03/30/21 Lb Saenz MD [address] [place] [address] Specialist Cardiology 06/02/22 Maci Biswas NP [address] [place] [address] Cardiology 06/08/23 12/14/23 documented as of this encounter
--- OUTSIDE RECORDS SUMMARY | 2024-09-10 15:59 | XMS_ITS | Encounter Summary ---
Author Organization [facility] Address [address] [facility] [place] [address] Care Team Providers Care Construction Project Manager Name Role Phone Lise Pack MD Primary Care Provider Unavail able Arelis Manley MD Primary Care Provider [phone] Lb Saenz MD Unavailable Maci Biswas NP Unavailable [phone] Encounter Details Date Type Department Care Team Description 04/26/2019 Old Medical Records Medical Records [address] [place] [address] Abstract, Provider Social History Tobacco Use Types [...] on filedocumented in this encounter Care Teams Construction Project Manager Relationship Specialty Start Date End Date Lise Pack MD PCP - General Internal Medicine 06/10/17 03/29/21 Arelis Manley MD [address] [place] [address] PCP - General Internal Medicine 03/30/21 Lb Saenz MD [address] [place] [address] Specialist Cardiology 06/02/22 Maci Biswas NP [address] [place] [address] Cardiology 06/08/23 12/14/23 documented as of this encounter
--- OUTSIDE RECORDS SUMMARY | 2024-09-10 15:59 | XMS_ITS | Encounter Summary ---
Author Organization [facility] Address [address] [place] [address] Care Team Providers Care Cardiac Nurse Specialist Name Role Phone Lise Pack MD Primary Care Provider Unavail able Arelis Manley MD Primary Care Provider [phone] Lb Saenz MD Unavailable [phone] Maci Biswas NP Unavailable [phone] Reason for Visit * Reason Onset Date Comments refill request 12/05/2019 Encounter Details Date Type Department Care Team Description 12/05/2019 Refill Adult Medicine [address] [address] Lise Pack MD refill request Social History Tobacco Use Types Packs/Day Years [...] on file documented as of this encounter Miscellaneous Notes * Telephone Encounter - Lise Pack MD - 12/05/2019 4:11 PM EDT Needs virtual with me * Telephone Encounter - Julisa Yun 12/05/2019 3:46 PM EDT Last office visit 04/19/19 Pt canceled last 2 appts. Message to schedule appt. Only gave 30 day supply. * Telephone Encounter - Madhavi Sendy - 12/05/2019 10:00 AM EDT Patient would like script to be: E-PRESCRIBED/FAXED TO PHARMACY WHEN WAS THE PATIENT'S LAST APPOINTMENT IN ADULT MEDICINE? 04/19/19 WHEN WAS THE LAST TIME THE PATIENT SAW THEIR PCP? Same as above Does patient have an upcoming appointment? No-patient refused appointment, will call back to book appointment (THE MEDICATION REQUESTED IS ON THE MED LIST ABOVE) All of the medications requested were on the CURRENT MEDS list Did you check the Pharmacy information above?: YES Patient wants: 90 -day supply Is this a mail order prescription request ? NO If the refill is from a FAXED refill request what is the RX # listed on the fax? N/A Patients current insurance carrier is: [place] / [place] / Product Type: MEDICARE [id number] documented in this encounter Plan of Treatment Not on file documented as of this encounter Visit Diagnoses Diagnosis Muscle strain Unspecified site of sprain and strain Malignant neoplasm of urinary bladder, unspecified site (HCC) Essential hypertension Unspecified essential hypertension documented in this encounter Care Teams Cardiac Nurse Specialist Relationship Specialty Start Date End Date Lise Pack MD PCP - General Internal Medicine 06/10/17 03/29/21 Arelis Manley MD [address] [place] [address] PCP - General Internal Medicine 03/30/21 Lb Saenz MD [address] [place] [address] Specialist Cardiology 06/02/22 Maci Biswas NP [address] [place] [address] Cardiology 06/08/23 12/14/23 documented as of this encounter
--- OUTSIDE RECORDS SUMMARY | 2024-09-10 15:59 | XMS_ITS | Encounter Summary ---
Author Organization [facility] Address [address] [facility] [place] [address] Care Team Providers Care Tank Officer Name Role Phone Lise Pack MD Primary Care Provider Unavail able Arelis Manley MD Primary Care Provider [phone] Lb Saenz MD Unavailable [phone] Maci Biswas NP Unavailable [phone] Encounter Details Date Type Department Care Team Description 11/24/2018 Pupil Personnel Worker Report Medical Records [address] [place] [address] Tj Hilton MD Social History Tobacco Use [...] on filedocumented in this encounter Care Teams Tank Officer Relationship Specialty Start Date End Date Lise Pack MD PCP - General Internal Medicine 06/10/17 03/29/21 Arelis Manley MD [address] [place] [address] [id number] PCP - General Internal Medicine 03/30/21 Lb Saenz MD [address] [place] [address] Specialist Cardiology 06/02/22 Maci Biswas NP [address] [place] [address] Cardiology 06/08/23 12/14/23 documented as of this encounter
--- OUTSIDE RECORDS SUMMARY | 2024-09-10 15:59 | XMS_ITS | Encounter Summary ---
Author Organization [facility] Address [address] [place] [address] Care Team Providers Care Concrete Vault Maker Name Role Phone Arelis Manley MD Primary Care Provider Reason for Visit * Reason Onset Date Comments Constipation 09/07/2024 Altered Mental Status 09/07/2024 Encounter Details Date Type Department Care Team (Late st Contact Info) Description 09/07/2024 Nurse Triage Adult Medicine [address] [address] Arelis Manley MD [address] [place] [address] Constipation; Altered Mental Status Social History Tobacco Use Types Packs/Day Years Used Date Smoking Tobacco: Never Smokeless Tobacco: Never Alcohol Use Standard Drinks/Week Comments Yes 0 (1 standard drink = 0.6 oz pur e alcohol) Comments Unknown Sex and Gender Information Value Date Recorded Sex Assigned at Not on file Legal Sex Female 4:02 PM EST Gender Identity Not on file Sexual Orientation Not on file documented as of this encounter Progress Notes * Yareli Lynn RN - 09/07/2024 10:49 AM EDT She was instructed to take her to the ER for further evaluation and treatment. She is in agreement with this plan and states she will take her to [facility] ER. Reason for Disposition [1] Difficult to awaken or acting confused (e.g., disoriented, slurred speech) AND [2] present now AND [3] new-onset Answer Assessment - Initial Assessment Questions 1. LEVEL OF CONSCIOUSNESS: How are they (the patient) acting right now? (e.g., alert-oriented, confused, lethargic, stuporous, comatose) She states last night her mother seemed flat when she was there for dinner. She is not interested in activities she once enjoyed. She states she didn't know who Dr. Manley was and thought she was a male. She states normally her mother would remember Dr. Manley 2. ONSET: When did the confusion start? (e.g., minutes, hours, days) 1 week ago 3. PATTERN: Does this come and go, or has it been constant since it started? Is it present now? Constant. States when she told her mother she was making an appointment she said after 2:00 pm right which is typical for her. She has not been on wordle for 3 days when normally she is. 4. ALCOHOL or DRUGS: Have they been drinking alcohol or taking any drugs? She drinks one cocktail nightly vodka and tonic 5. NARCOTIC MEDICINES: Have they been receiving any narcotic medications? (e.g., morphine, Vicodin) No narcotic 6. CAUSE: What do you think is causing the confusion? Unknown ? dehydration 7. OTHER SYMPTOMS: Are there any other symptoms? (e.g., difficulty breathing, fever, headache, weakness) No. No urinary symptoms. She was constipated but started laxatives and is now moving her bowels. She denies diarrhea Protocols used: Confusion - [id number] * Moni Tolbert - 09/07/2024 9:47 AM EDT Patient call requires triage: Symptoms patient is presenting: Patient daughter Claire is calling in for patient - states her mother has had issues with constipation on and off but her mother states she is now going regularly - Claire states her mother is usually very on top of things but she has noticed recently she seems to be alittle confused - states and example is the other day she said she didn't know who Dr Manley was - Claire isn't sure if maybe she is dehydrated and would like some advice How long has patient had these symptoms?: off and on issues For ALL patients calling to schedule any appointment (routine, sick visit, follow up, consult, etc.) in the outpatient setting please ask the following questions: Do you have fever of higher than 101, sore throat with difficulty swallowing or severe shortness ofbreath? no If YES to any of these above symptoms, send a message to triage and do not book. Red dot. If no, an audio or video visit should be booked. Have you had close contact with someone with Coronavirus in the last 14 days? no Have you traveled abroad? no Have you traveled recently to another state outside of [place], [place], [place], [place], [place], [place], [place]? no o If yes, did you quarantine for 14 days or have a negative covid test? no If yes to any of the above, patient is not to be scheduled in office until after 14 day quarantine or negative covid test. If pain or injury related was it due to an accident at work or from a motor vehicle accident? If yes, date of accident/Injury: No If yes, gather 3rd republican insurance information Third Republican Information: not applicable PCP: Arelis Manley MD Payor: MEDICARE / Plan: MEDICARE PART A & B / Product Type: Medicare / documented in this encounter Plan of Treatment Not on file documented as of this encounter Visit Diagnoses Not on filedocumented in this encounter Care Teams Concrete Vault Maker Relationship Specialty Start Date End Date Arelis Manley MD [address] [place] [address] PCP - General Internal Medicine 03/30/21 documented as of this encounter
--- OUTSIDE RECORDS SUMMARY | 2024-09-10 15:59 | XMS_ITS | Encounter Summary ---
Author Organization [facility] Address [address] [place] [address] Care Team Providers Care Clinical Counselor Name Role Phone Arelis Manley MD Primary Care Provider [phone] Lb Saenz MD Unavailable [phone] Maci Biswas NP Unavailable [phone] Reason for Visit * Reason Onset Date Comments Medication 12/24/2022 torsemide Encounter Details Date Type Department Care Team Description 12/24/2022 Telephone Cardio PVC [address] [facility] [address] [place] [address] Lb Saenz MD [address] [place] [address] Medication (torsemide) Social History Tobacco Use Types Packs/Day Years [...] suspected to have Coronavirus/COVID-19? No / Unsure 12/15/2022 10:43 AM EDT documented as of this encounter Miscellaneous Notes * Telephone Encounter - Whitney Garcia RN - 12/31/2022 3:35 PM EDT Patient was made aware of Fredy Kowalski NP orders and is aware losartan is discontinued for now. She will check BP withher new BP cuff when she * Telephone Encounter - Maci Kowalski NP - 12/31/2022 2:38 PM EDT Stay off the medicine completely until she comes in for her blood pressure check. That blood pressure reported is too low to continue. No parameters for now just stay off until appointment * Telephone Encounter - Whitney Garcia RN - 12/31/2022 1:40 PM EDT She took losartan 25mg since I talked to her last . Daughter is picking up [employer] BP cuff later today. Since she is going to have a BP cuff, do you have parameters for her to follow for taking or holding losartan ? She is cancelling BP check and will check at home instead. I advised her follow KEITH Chavarria recommendations/ orders until she hears back which is to hold losartan. * Telephone Encounter - Maci Kowalski NP - 12/31/2022 1:31 PM EDT If blood pressure is that low just hold the losartan. * Telephone Encounter - Whitney Garcia RN - 12/31/2022 1:08 PM EDT Spoke with patient and relayed LORI Gupta NP response. She is agreeable to 01/07/23 2pm BP check only. Now patient is asking if she should take reduced losartan dose 25mg qd because at time of lower bp 88/52, 68 yesterday she had not taken any losartan since day before. Dose losartan 50 mg qd changed today to 25mg qd. Patient last took losartan Tuesday and has no way to check BP. Not dizzy lightheadedbut states she never is. * Telephone Encounter - Erik Gupta NP - 12/31/2022 12:31 PM EDT BP check sounds good. * Telephone Encounter - Whitney Garcia RN - 12/31/2022 8:10 AM EDT Do you want patient booked for a BP check and if so in a few weeks? Having BP [facility] at [facility] 01/13/23. Losartan dose decreased to 25mg qd Spoke with patient and relayed LORI Gupta NP orders. She stated she just filled losartan 50 mg qd andwas comfortable cutting in half for 25mg dosing daily. She was told to call when she needs a new script. Spoke with crystal at [facility] as well . Patient is going back for INR check 01/13/23 and coumadin clinic will check her BP as well and notify us. My direct line was given. * Telephone Encounter - Erik Gupta NP - 12/30/2022 5:03 PM EDT Reduce Losartan to 25mg daily please. * Telephone Encounter - Whitney Garcia RN - 12/30/2022 2:19 PM EDT Received call from Annie at [facility] who reports at echo appt earlier BP 90/60. BPpulse now at [facility] 88/52, pulse 68 regular. Denied dizziness, lightheadedness, fatigue. Has not taken losartan yet today and has not eaten lunch. Should she take losartan 50 mg qd? Please see below as well. Thanks. * Telephone Encounter - Whitney Garcia RN - 12/29/2022 3:08 PM EDT Spoke with patient today and she denies taking torsemide 20 mg BID. She reports from the beginning of December she has been taking torsemide 20 mg 1/2 tab BID. I advisedshe can take the 20 mg in a.m. No scale. Denied any LLE in a.m. or end of day. Denied PND. No BP cuff, but last BP 5 days ago at [facility] 90/54, pulse 80. She is going there tomorrow and will have the office call in BP pulse here. Med list updated. * Telephone Encounter - Erik Gupta NP - 12/29/2022 2:54 PM EDT Fine to take bid * Telephone Encounter - Cira Ross R.N. - 12/24/2022 3:35 PM EDT Ok to continue on BID dosing? * Telephone Encounter - Jeremy Fraga C.M.A. - 12/24/2022 3:18 PM EDT Annie from [facility] called as pt BP was 90/54 Hr 80. Pt is taking torsemide 20 [address] bid [address] Saenz's OV she was suppose to be taking 20 mg tid. Pt daughter states Dr Saenz said 20 mg bid. Pt is feeling good and her SOB is better. Pt INR was 1.5 today and they are having her take 7.5 mg on tue and tue. 5 mg the rest of the days and recheck on . documented in this encounter Plan of Treatment Not on file documented as of this encounter Visit Diagnoses Not on filedocumented in this encounter Care Teams Clinical Counselor Relationship Specialty Start Date End Date Arelis Manley MD [address] [place] [address] PCP - General Internal Medicine 03/30/21 Lb Saenz MD [address] [place] [address] Specialist Cardiology 06/02/22 Maci Biswas NP [address] [place] [address] Cardiology 06/08/23 12/14/23 documented as of this encounter
--- OUTSIDE RECORDS SUMMARY | 2024-09-10 15:59 | XMS_ITS | Clinical Summary ---
Author Organization [facility] Address [address] [place] [address] Care Team Providers Care Physical Therapy Supervisor Name Role Phone Lise Pack MD Primary Care Provider [phone] Allergies No known active allergies Medications Medication Sig Dispensed Refills Start Date End Date Status losartan (COZAAR) tablet 50 mg Take 50 mg by mouth daily. 0 Active CIPROFLOXACIN HCL PO Take by mouth. 0 Active ciprofloxacin (CIPRO) 250 MG tablet 0 08/11/2017 Active cyclobenzaprine (FLEXERIL) 5 MG tablet 0 08/25/2017 Active oxyCODONE-acetaminoph en (PERCOCET) 5-325 MG per tablet 0 08/11/2017 Active traZODone (DESYREL) 50 MG tablet 0 08/31/2017 Active losartan (COZAAR) tablet 50 mg Take 50 mg by mouth. 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 2017 Urinary frequency 09/02/2017 Urgency of urination 09/02/2017 Frequency of micturition Family History Medical History Relation Name Comments Heart attack Father Breast cancer Mother Relation Name Status Comments Father Mother Social History Tobacco Use Types Packs/Day Years Used Date Smoking Tobacco: Never Smokeless Tobacco: Never Alcohol Use Standard Drinks/Week Comments Yes 0 (1 standard drink = 0.6 oz pur e alcohol) Sex and Gender Information Value Date Recorded Sex Assigned at Not on file Gender Identity Not on file Sexual Orientation Not on file Job Start Date Occupation Industry Not on file Not on file Not on file Last Filed Vital Signs Vital Sign Reading Time Taken Comments Blood Pressure 122/80 09/02/2017 1:57 PM EDT Pulse - - Temperature - - Respiratory Rate - - Oxygen Saturation - - Inhaled Oxygen Concentration - - Weight 93 kg (205 lb) 09/09/2017 1:58 PM EDT Height 160 cm (5' 3 ) 09/09/2017 1:58 PM EDT Body Mass Index 36.31 09/09/2017 1:58 PM EDT Plan of Treatment Health Maintenance Due Date Last Done Comments Hepatitis C Screening 1944 COVID-19 Vaccine (#1) 1949 Pneumococcal Vaccine (1 of 2 - PCV) 1950 Depression Screening 1956 Preventative Health Evaluation 1962 DTap / Tdap / Td (1 - Tdap) 12/13/1963 Shingrix-Zoster Vaccine (1 of 2) 12/13/1963 Fall Risk Assessment 2009 Osteoporosis Screening (DEXA Scan) 2009 RSV Adult > 60+ Yrs or Pregn ant (1 - 1-dose 75+ series) 12/13/2019 Influenza Vaccine (#1) 2024 Hepatitis B Vaccines Aged Out No long er eligible based on patient's age to complete this topic RSV Ped < 20 months Aged Out No longe r eligible based on patient's age to complete this topic Care Teams Physical Therapy Supervisor Relationship Specialty Start Date End Date Lise Pack MD PCP - General Internal Medicine 09/02/17
--- OUTSIDE RECORDS SUMMARY | 2024-09-10 15:59 | XMS_ITS | Encounter Summary ---
Author Organization [facility] Address [address] [place] [address] Care Team Providers Care Finisher Hand Name Role Phone Lise Pack MD Primary Care Provider Unavail able Arelis Manley MD Primary Care Provider [phone] Lb Saenz MD Unavailable [phone] Maci Biswas NP Unavailable [phone] Reason for Visit * Reason Onset Date Comments Faxed Order 02/12/2021 [id number] Encounter Details Date Type Department Care Team Description 02/12/2021 Telephone Adult [address] [address] Lies Pack MD Faxed Order ([id number]) Social History Tobacco Use Types Packs/Day Years [...] encounter Miscellaneous Notes * Telephone Encounter - Lisa Drake - 02/12/2021 2:26 PM EDT [facility] IS FAXING ORDERS TO BE SIGNED AND FAX BACK TO [phone]. documented in this encounter Plan of Treatment Not on file documented as of this encounter Visit Diagnoses Not on filedocumented in this encounter Care Teams Finisher Hand Relationship Specialty Start Date End Date Lise Pack MD PCP - General Internal Medicine 06/10/17 03/29/21 Arelis Manley MD [address] [place] [address] PCP - General Internal Medicine 03/30/21 Lb Saenz MD [address] [place] [address] Specialist Cardiology 06/02/22 Maci Biswas NP [address] [place] [address] Cardiology 06/08/23 12/14/23 documented as of this encounter
--- OUTSIDE RECORDS SUMMARY | 2024-09-10 15:59 | XMS_ITS | Encounter Summary ---
Author Organization [facility] Address [address] [facility] [place] [place] [address] Care Team Providers Care Maintenance Craftsman Name Role Phone Lise Pack MD Primary Care Provider Unavail able Arelis Manley MD Primary Care Provider [phone] Lb Saenz MD Unavailable [phone] Maci Biswas NP Unavailable [phone] Encounter Details Date Type Department Care Team Description 08/09/2017 Market Gardener Report Medical Records [address] [place] [address] Abstract, Provider Social History Tobacco Use Types [...] on filedocumented in this encounter Care Teams Maintenance Craftsman Relationship Specialty Start Date End Date Lise Pack MD PCP - General Internal Medicine 06/10/17 03/29/21 Arelis Manley MD [address] [place] [address] PCP - General Internal Medicine 03/30/21 Lb Saenz MD [address] [place] [address] Specialist Cardiology 06/02/22 Maci Biswas NP [address] [place] [address] Cardiology 06/08/23 12/14/23 documented as of this encounter
--- OUTSIDE RECORDS SUMMARY | 2024-09-10 15:59 | XMS_ITS | Encounter Summary ---
Author Organization [facility] Address [address] [facility] [place] [address] Care Team Providers Care Lock Setter Name Role Phone Lise Pack MD Primary Care Provider Unavail able Arelis Manley MD Primary Care Provider [phone] Lb Saenz MD Unavailable [phone] Maci Biswas NP Unavailable [phone] Encounter Details Date Type Department Care Team Description 07/08/2020 Old Medical Records Medical Records [address] [place] [address] Abstract, Provider Social History Tobacco Use Types [...] on filedocumented in this encounter Care Teams Lock Setter Relationship Specialty Start Date End Date Lise Pack MD PCP - General Internal Medicine 06/10/17 03/29/21 Arelis Manley MD [address] [place] [address] PCP - General Internal Medicine 03/30/21 Lb Saenz MD [address] [place] [address] Specialist Cardiology 06/02/22 Maci Biswas NP [address] [place] [address] Cardiology 06/08/23 12/14/23 documented as of this encounter
--- OUTSIDE RECORDS SUMMARY | 2024-09-10 15:59 | XMS_ITS | Encounter Summary ---
Author Organization [facility] Address [address] [place] [address] Care Team Providers Care Cigarette Lighter Repairer Name Role Phone Arelis Manley MD Primary Care Provider [phone] Lb Saenz MD Unavailable [phone] Maci Biswas NP Unavailable [phone] Encounter Details Date Type Department Care Team Description 09/28/2022 SCAN Medical Records [address] [place] [address] Daquan Flowers MD Social History Tobacco Use Types Packs/Day [...] suspected to have Coronavirus/COVID-19? No / Unsure 09/17/2022 4:14 PM EDT documented as of this encounter Plan of Treatment Not on file documented as of this encounter Procedures Procedure Name Priority Date/Time Associated Diagnosis Comments OUTSIDE VASCULAR STUDY Routine 09/28/2022 documented in this encounter Results * OUTSIDE VASCULAR STUDY (09/28/2022) Provider Abstract CARDIOLOGY documented in this encounter Visit Diagnoses Not on filedocumented in this encounter Care Teams Cigarette Lighter Repairer Relationship Specialty Start Date End Date Arelis Manley MD [address] [place] [address] PCP - General Internal Medicine 03/30/21 Lb Saenz MD [address] [place] [address] Specialist Cardiology 06/02/22 Maci Biswas NP [address] [place] [address] Cardiology 06/08/23 12/14/23 documented as of this encounter
--- OUTSIDE RECORDS SUMMARY | 2024-09-10 15:59 | XMS_ITS | Encounter Summary ---
Author Organization [facility] Address [address] [place] [address] Care Team Providers Care Popcorn Attendant Name Role Phone Arelis Manley MD Primary Care Provider [phone] Lb Saenz MD Unavailable [phone] Maci Biswas NP Unavailable [phone] Encounter Details Date Type Department Care Team Description 09/22/2022 SCAN Medical Records [address] [place] [address] Tish Conteh MD Social History Tobacco Use Types Packs/Day [...] Name Priority Date/Time Associated Diagnosis Comments OUTSIDE PLAIN FILM Routine 09/22/2022 OUTSIDE LAB Routine 09/22/2022 documented in this encounter Results * OUTSIDE PLAIN FILM (09/22/2022) Provider Abstract RADIOLOGY * OUTSIDE LAB (09/22/2022) Provider Abstract LAB documented in this encounter Visit Diagnoses Not on filedocumented in this encounter Care Teams Popcorn Attendant Relationship Specialty Start Date End Date Arelis Manley MD [address] [place] [address] PCP - General Internal Medicine 03/30/21 Lb Saenz MD [address] [place] [address] Specialist Cardiology 06/02/22 Maci Biswas NP [address] [place] [address] Cardiology 06/08/23 12/14/23 documented as of this encounter
--- OUTSIDE RECORDS SUMMARY | 2024-09-10 15:59 | XMS_ITS | Encounter Summary ---
Author Organization [facility] Address [address] [place] [address] Care Team Providers Care Reach Lift Truck Driver Name Role Phone Arelis Manley MD Primary Care Provider [phone] Lb Saenz MD Unavailable [phone] Maci Biswas NP Unavailable [phone] Reason for Referral * Non COLE (Priority) - PVCA: No Auth Needed/Booked Specialty Diagnoses / Procedures Referred By Contac t Referred To Contact Cardiology Diagnoses Atrial flutter, unspecified type (HCC) Procedures REFERRAL TO CARDIOLOGY Arelis Manley MD [address] [place] [address] Cardio Pvc/Stfd [address] [facility] [address] [place] [address] Referral ID Status Reason Start Date Expiration Date V isits Requested Visits Authorized [id number] PVCA: No Auth Needed/Booke d 05/26/2022 05/26/2023 1 1 Reason for Visit * Reason Onset Date Comments Arrhythmia 05/26/2022 SVT likely AT on arrival to echo today. Broke spontaneously Encounter Details Date Type Department Care Team Description 05/26/2022 Telephone Cardio PVCA Diag Testing [address] [facility] [address] [place] [address] Sofía Rider PA-C [address] [place] [address] Arrhythmia (SVT likely AT on arrival to echo today. Broke spontaneously) Social History Tobacco Use Types Packs/Day Years [...] suspected to have Coronavirus/COVID-19? No / Unsure 05/26/2022 2:25 PM EST documented as of this encounter Miscellaneous Notes * Telephone Encounter - Arelis Manley MD - 05/26/2022 4:37 PM EST I placed the referral to cardiology * Telephone Encounter - Sofía Rider PA-C - 05/26/2022 4:[address] Manley. Patient presented today for outpatient echocardiogram that you ordered due to a murmur on exam. She was somewhat short of breath walking down to the echo room per the certified technician. She wasnoted to be tachycardic. Twelve-lead EKG was done showing heart rate in the 140s which appeared to be in atrial tachycardia or possible atrial flutter. Dr. Gonzales evaluated the patient. We discussed administering adenosine here in the office to hopefully break the arrhythmia or uncover what this rhythm actually is. This was done after a modified Valsalva was attempted without success. After starting her IV she was noted to have broke back into normal sinus rhythm. Echocardiogram will be done u [facility] with report to follow. We are happy to see her in cardiac consultation, holter if you would like. documented in this encounter Plan of Treatment Not on file documented as of this encounter Visit Diagnoses Diagnosis Atrial flutter, unspecified type (HCC)- Primary documented in this encounter Care Teams Reach Lift Truck Driver Relationship Specialty Start Date End Date Arelis Manley MD [address] [place] [address] PCP - General Internal Medicine 03/30/21 Lb Saenz MD [address] [place] [address] Specialist Cardiology 06/02/22 Mcai Biswas NP [address] [place] [address] Cardiology 06/08/23 12/14/23 documented as of this encounter
--- OUTSIDE RECORDS SUMMARY | 2024-09-10 15:59 | XMS_ITS | Encounter Summary ---
Author Organization [facility] Address [address] [place] [address] Care Team Providers Care Pool Finisher Name Role Phone Arelis Manley MD Primary Care Provider [phone] Lb Saenz MD Unavailable [phone] Maci Biswas NP Unavailable [phone] Reason for Visit * Reason Onset Date Comments Advice 07/06/2023 Encounter Details Date Type Department Care Team Description 07/06/2023 Pt. Non Urgent Medical Question Adult Medicine [address] [id number] Arelis Manley MD [address] [place] [address] [phone] Hyperlipidemia, unspecified hyperlipidemia type (Primary Dx); Prediabetes; Osteopenia, unspecified location Social History Tobacco Use Types Packs/Day Years [...] encounter Miscellaneous Notes * Telephone Encounter - Keren Longo M.A. - 07/06/2023 10:22 AM ESTFrom: Radha Donovan To: Radhika Manley Sent: 07/06/2023 10:07 AM EST Subject: Question regarding CHOLESTEROL Please send a prescription for lowering my cholesterol to my pharmacy: [facility] [address] phone #[phone]. Also you said I should take 2000 units of Vitamin D. How much Calcium should I be taking daily? Please let me know. I???ll be going to the pharmacy on if I have an RX to flower buncher or picker. Thank you, Radha Donovan [phone] documented in this encounter Plan of Treatment Scheduled Orders Name Type Priority Associated Diagnoses Orde r Schedule CHG HEPATIC FUNCTION PANEL Lab Routine Hyperlipidemia, unspecified hyperlipidemia type Expected: 07/06/2023, Expires: 07/05/2024 CHG LIPID PANEL Lab Routine Hyperlipidemia, unspecified hyperlipidemia type Expected: 07/06/2023, Expires: 07/05/2024 documented as of this encounter Visit Diagnoses Diagnosis Hyperlipidemia, unspecified hyperlipidemia type- Primary Prediabetes Other abnormal glucose Osteopenia, unspecified location documented in this encounter Care Teams Pool Finisher Relationship Specialty Start Date End Date Arelis Manley MD [address] [place] [address] PCP - General Internal Medicine 03/30/21 Lb Saenz MD [address] [place] [address] Specialist Cardiology 06/02/22 Maci Biswas NP [address] [place] [address] Cardiology 06/08/23 12/14/23 documented as of this encounter
--- OUTSIDE RECORDS SUMMARY | 2024-09-10 15:59 | XMS_ITS | Encounter Summary ---
Author Organization [facility] Address [address] [place] [address] Care Team Providers Care Gyroscopic Engineering Technician Name Role Phone Arelis Manley MD Primary Care Provider [phone] Lb Saenz MD Unavailable [phone] Maci Biswas NP Unavailable [phone] Encounter Details Date Type Department Care Team Description 10/01/2022 SCAN Medical Records [address] [place] [address] Lb Saenz MD [address] [place] [address] [phone] Social History Tobacco Use Types Packs/Day Years [...] Name Priority Date/Time Associated Diagnosis Comments OUTSIDE CARDIAC CATH Routine 10/01/2022 documented in this encounter Results * OUTSIDE CARDIAC CATH (10/01/2022) Provider Abstract CARDIOLOGY documented in this encounter Visit Diagnoses Not on filedocumented in this encounter Care Teams Gyroscopic Engineering Technician Relationship Specialty Start Date End Date Arelis Manley MD [address] [place] [phone] PCP - General Internal Medicine 03/30/21 Lb Saenz MD [address] [place] [address] Specialist Cardiology 06/02/22 Maci Biswas NP [address] [place] [address] [phone] Cardiology 06/08/23 12/14/23 documented as of this encounter
--- OUTSIDE RECORDS SUMMARY | 2024-09-10 15:59 | XMS_ITS | Encounter Summary ---
Author Organization [facility] Address [address] [place] [address] Care Team Providers Care Sports Health Club Membership Advisors Name Role Phone Lise Pack MD Primary Care Provider Unavail able Arelis Manley MD Primary Care Provider [phone] Lb Saenz MD Unavailable [phone] Maci Biswas NP Unavailable [phone] Encounter Details Date Type Department Care Team Description 01/22/2020 Game Agent Report Medical Records [address] [place] [address] Tj Hilton MD Social History Tobacco Use [...] on filedocumented in this encounter Care Teams Sports Health Club Membership Advisors Relationship Specialty Start Date End Date Lise Pack MD PCP - General Internal Medicine 06/10/17 03/29/21 Arelis Manley MD [address] [place] [address] [phone] PCP - General Internal Medicine 03/30/21 Lb Saenz MD [address] [place] [address] Specialist Cardiology 06/02/22 Maci Biswas NP [address] [place] [address] Cardiology 06/08/23 12/14/23 documented as of this encounter
--- OUTSIDE RECORDS SUMMARY | 2024-09-10 15:59 | XMS_ITS | Encounter Summary ---
Author Organization [facility] Address [address] [place] [address] Care Team Providers Care Corporate Trainer Name Role Phone Lise Pack MD Primary Care Provider Unavail able Arelis Manley MD Primary Care Provider [phone] Lb Saenz MD Unavailable [phone] Maci Biswas NP Unavailable [phone] Reason for Visit * Reason Onset Date Comments refill request 02/08/2020 Encounter Details Date Type Department Care Team Description 02/08/2020 Refill Adult Medicine [address] [address] Lise Pack MD refill request Social History [...] Telephone Encounter - Lise Pack MD - 02/09/2020 6:53 AM EDT Pt should be set up for virtual with me * Telephone Encounter - Keren Longo M.A. - 02/08/2020 2:36 PM EDT Last appt with pcp 04/19/2019 * Telephone Encounter - Keren Longo M.A. - 02/08/2020 2:02 PM EDT Lab Results Component Value Date NA 137 06/06/2018 K 4.2 06/06/2018 CO2 25 06/06/2018 CL 103 06/06/2018 BUN 14 06/06/2018 CREAT 0.90 06/06/2018 GLU 125 06/06/2018 CA 9.2 06/06/2018 GFR > 60 06/06/2018 * Telephone Encounter - Pj Chamorro - 02/08/2020 1:55 PM EDT Patient would like script to be: E-PRESCRIBED/FAXED TO PHARMACY WHEN WAS THE PATIENT'S LAST APPOINTMENT IN ADULT MEDICINE? 04/19/19 WHEN WAS THE LAST TIME THE PATIENT SAW THEIR PCP? Same as above Does patient have an upcoming appointment? No- patient refused to book appointment, patient did nothave her calendar with her to book appointment. (THE MEDICATION REQUESTED IS ON THE MED LIST ABOVE) All of the medications requested were on the CURRENT MEDS list Did you check the Pharmacy information above?: YES Patient wants: 30 -day supply Is this a mail order prescription request ? NO If the refill is from a FAXED refill request what is the RX # listed on the fax? N/A Patients current insurance carrier is: [place] / [place] / Product Type: MEDICARE [id number] documented in this encounter Plan of Treatment Not on file documented as of this encounter Visit Diagnoses Not on filedocumented in this encounter Care Teams Corporate Trainer Relationship Specialty Start Date End Date Lsie Pack MD PCP - General Internal Medicine 06/10/17 03/29/21 Arelis Manley MD [address] [place] [address] PCP - General Internal Medicine 03/30/21 Lb Saenz MD [address] [place] [address] Specialist Cardiology 06/02/22 Maci Biswas NP [address] [place] [address] Cardiology 06/08/23 12/14/23 documented as of this encounter
--- OUTSIDE RECORDS SUMMARY | 2024-09-10 15:59 | XMS_ITS | Encounter Summary ---
Author Organization [facility] Address [address] [place] [address] Care Team Providers Care Pug Mill Operator Name Role Phone Lise Pack MD Primary Care Provider Unavail able Arelis Manley MD Primary Care Provider [phone] bL Saenz MD Unavailable [phone] Maci Biswas NP Unavailable [phone] Encounter Details Date Type Department Care Team Description 07/21/2020 E Learning Coordinator Report Medical Records [address] [place] [address] Tj Hilton MD Social History Tobacco Use [...] on filedocumented in this encounter Care Teams Pug Mill Operator Relationship Specialty Start Date End Date Lise Pack MD PCP - General Internal Medicine 06/10/17 03/29/21 Arelis Manley MD [address] [place] [address] [phone] PCP - General Internal Medicine 03/30/21 Lb Saenz MD [address] [place] [address] Specialist Cardiology 06/02/22 Maci Biswas NP [address] [place] [address] Cardiology 06/08/23 12/14/23 documented as of this encounter
--- OUTSIDE RECORDS SUMMARY | 2024-09-10 15:59 | XMS_ITS | Encounter Summary ---
Author Organization [facility] Address [address] [place] [address] Care Team Providers Care Home Care Provider Name Role Phone Arelis Manley MD Primary Care Provider [phone] Lb Saenz MD Unavailable [phone] Maci Biswas NP Unavailable [phone] Encounter Details Date Type Department Care Team Description 02/26/2022 Business Doc Medical Records [address] [place] [address] Abstract, Provider Social History Tobacco Use Types [...] suspected to have Coronavirus/COVID-19? No / Unsure 02/17/2022 1:52 PM EDT documented as of this encounter Plan of Treatment Not on file documented as of this encounter Visit Diagnoses Not on filedocumented in this encounter Care Teams Home Care Provider Relationship Specialty Start Date End Date Arelis Manley MD [address] [place] [address] PCP - General Internal Medicine 03/30/21 Lb Saenz MD [address] [place] [address] Specialist Cardiology 06/02/22 Maci Biswas NP [address] [place] [address] Cardiology 06/08/23 12/14/23 documented as of this encounter
--- OUTSIDE RECORDS SUMMARY | 2024-09-10 15:59 | XMS_ITS | Encounter Summary ---
Author Organization [facility] Address [address] [place] [address] Care Team Providers Care Rubber Goods Cutter Finisher Name Role Phone Arelis Manley MD Primary Care Provider [phone] Lb Saenz MD Unavailable [phone] Maci Biswas NP Unavailable [phone] Encounter Details Date Type Department Care Team Description 10/13/2022 Rotary Operator Report Medical Records [address] [place] [address] Guille Joseph MD Social History Tobacco Use Types Packs/Day [...] Date/Time Associated Diagnosis Comments OUTSIDE EKG Routine 10/13/2022 documented in this encounter Results * OUTSIDE EKG (10/13/2022) Provider Abstract CARDIOLOGY documented in this encounter Visit Diagnoses Not on filedocumented in this encounter Care Teams Rubber Goods Cutter Finisher Relationship Specialty Start Date End Date Arelis Manley MD [address] [place] [phone] PCP - General Internal Medicine 03/30/21 Lb Saenz MD [address] [place] [address] Specialist Cardiology 06/02/22 Maci Biswas NP [address] [place] [address] Cardiology 06/08/23 12/14/23 documented as of this encounter
--- OUTSIDE RECORDS SUMMARY | 2024-09-10 15:59 | XMS_ITS | Clinical Summary ---
Author Organization [facility] [email or web address] [facility] Address [address] [place] [address] Phone Care Team Providers Care Vehicle Mechanic Name Role Phone Arelis Manley MD Primary Care Provider [phone] Allergies No known active allergies Medications mirtazapine (REMERON) 15 mg tablet Take 1 tablet (15 mg total) by mouth at bedtime. 01/24/2024 Active dilTIAZem CD (CARDIZEM CD) 120 mg 24 hr capsule 11/20/2023 Active atorvastatin (LIPITOR) 10 mg tablet Take 1 tablet (10 mg total) by mouth at bedtime. 12/27/2023 Active calcium carb/vit D3/minerals (CALCIUM-VITAMIN D ORAL) Take by mouth. Active apixaban (Eliquis) 5 mg tablet TAKE 1 TABLET BY MOUTH TWICE A DAY 180 tablet 1 06/15/2024 Active Active Problems Problem Noted Date Diagnosed Date Primary hypertension 12/23/2023 Stage 3 chronic kidney disease ([facility]/HCC V24, CMS /HCC V28) 12/23/2023 Hyperlipidemia 07/01/2023 Overview (05/04/2024): ASCVD score of 30.1% as of 07/01/23 Wheezing 08/06/2022 Atrial flutter (CMS/HCC V24, CMS/[facility] V28) 2022 Overview (05/04/2024): Last Assessment & Plan: Rate well-controlled; continue Cardizem for rhythm control and warfarin for cardioembolic prophylaxis. The patient is followed by the INR clinic at [facility] and her INRs are managed accordingly. We discussed starting Eliquis today as this is previously been very expensive for her; we reviewed that they may have financial assistance programs that she qualifies for and she should call her insurance company to see how much this will cost her currently as this may have changed. She will call the office if she would like her warfarin changed to Eliquis. We discussed the risks and benefits of continuing anticoagulation for cardioembolic prophylaxis and she would like to continue with the current plan. She is aware to seek emergent medical attention for any uncontrolled bleeding, signs or symptoms of GI or other internal bleeding, or for any head injury. Nonrheumatic mitral valve regurgitation 06/17/19 Severe mitral regurgitation 06/09/2022 Overview (05/04/2024): Status post MitraClip with Dr. Joseph at [facility] in November 2022 Last Assessment & Plan: The patient is now status post MitraClip with Dr. Joseph of [facility] in November 2022; symptoms of wheezing and shortness of breath have resolved post procedurally and the patient reports that she is doing very well without any recent recurrence of symptoms. Echocardiogram 12/30/2022 showed MitraClip in mitral position with a mean gradient of 7 mmHg and no significant regurgitation which is reassuring. We reviewed signs or symptoms for which to return to care including worsening shortness of breath or peripheral edema; the patient and her daughter verbalized understanding of this. CKD (chronic kidney disease) stage 3, GFR 30-59 ml/min ([facility] V24, [facility] V28) 03/29/2022 Overview (05/04/2024): Last Assessment & Plan: Stable; followed by PCP regularly. Osteopenia 02/17/2022 Overview (05/04/2024): 02/2022: T-score lumbar (-0.9); hip ( -1.2); FRAX 13% Fibula fracture 02/11/2021 Overview (05/04/2024): Left, displaced. S/p surgery PAGAN (dyspnea on exertion) 05/02/2019 Overview (05/04/2024): Negative nuclear stress test April 2019 Prediabetes 06/07/2018 Depression 08/05/2017 Hypertension 08/05/2017 Overview (05/04/2024): Last Assessment & Plan: Pressure well-controlled today; the patient reports that her blood pressure was recently low at her PCPs visit on 05/26/2023 resulting in her PCP having her reduce her torsemide dose further to 10 mg every other day. The patient would like to stop her torsemide completely; I advised her to cut back on this slowly to see if she develops any worsening shortness of breath or peripheral edema which may signal that she does need her diuretic. We discussed switching this to furosemide and they declined at this time stating that they have an excessive amount of torsemide at home and they would rather stick with this and for now. I requested that she call back for ongoing episodes of hypotension accompanied by weakness or for any worsening shortness of breath or peripheral edema with further decreases in torsemide. She will also follow-up with her PCP regarding this. Insomnia 08/05/2017 OA (osteoarthritis) of knee 08/05/2017 Severe obesity (BMI 35.0-39. 9) with comorbidity (CMS/HCC V24, CMS/HCC V28) 08/05/2017 Overview (05/04/2024): Last Assessment & Plan: Patient is overweight. Approaches towards weight loss are discussed, including burning more calories than one takes in by portion control and regular exercise with an emphasis on duration rather than intensity . Encounters Date Type Department Care Team Description 09/07/2024 Nurse Triage Adult Medicine [address] [id number] Arelis Manley MD Constipation; Altered Mental Status from Last 3 Months Surgical History Surgery Date Site/Laterality Comments TOTAL KNEE ARTHROPLASTY Left PROCEDURE: AL ARTHRP KNE CONDYLE&PLATU MEDIAL&LAT COMPARTMENTS OTHER SURGICAL HISTORY PROCEDURE: ---- OTHER ----; COMMENT: 09/2016, 02/2017 bladder tumor resection OTHER SURGICAL HISTORY PROCEDURE: AL TOTAL ABDOMINAL HYSTERECT W/WO RMVL TUBE OVARY Medical History Medical History Date Comments Insomnia 08/05/2017 DX:Insomnia Hypertension 08/05/2017 DX:Hypertension Depression 08/05/2017 DX:Depression S/P TKR (total knee replacement), left 8 DX:S/P TKR (total knee replacement), left OA (osteoarthritis) of knee 08/05/2017 DX:O A (osteoarthritis) of knee Obesity (BMI 30-39.9) 08/05/2017 DX:Obesity (BMI 30-39.9) Bladder cancer (CMS/HCC V24, CMS/HCC V28) 07/22/2017 DX:Bladder cancer (HCC); COM MENT: Diagnosed 2016; s/p bladder tumor resection x 2, 09/2016, 02/2017. Follows with urology, s/p BCG x2 and intrabladder chemotherapy. Mitral regurgitation 06/09/2022 DX:Mitral r egurgitation; COMMENT: 06/07 mod MR, possibly flail leaflet Family History Medical History Relation Name Comments Stroke Father Breast cancer Mother unilateral Relation Name Status Comments Father Mother Social [...] on file Sexual Orientation Not on file Obstetrics History Last Filed Vital Signs Vital Sign Reading Time Taken Comments Blood Pressure 124/70 12/16/2023 2:10 PM EDT Sitting L Arm Pulse 88 12/16/2023 2:10 PM EDT Temperature - - Respiratory Rate - - Oxygen Saturation - - Inhaled Oxygen Concentration - - Weight 98 kg (216 lb 1.6 oz) 12/16/2023 2:10 PM EDT Height 160 cm (5' 3 ) 12/16/2023 2:10 PM EDT Body Mass Index 38.28 12/16/2023 2:10 PM EDT Plan of Treatment Health Maintenance Due Date Last Done Comments RSV Immunization Adult Patients (1 - 1-dose 75+ series) 12/13/2019 Depression Screening 04/24/2022 Hepatitis C Screening 04/24/2022 Social Influencers of Health Screening 04/24/2022 Zoster Vaccines (2 of 2) 05/29/2022 04/03/2022 COVID-19 Vaccine ( season) 2024 09/19/2021, 05/14/2021, 07/17/2020, Additional history exists Medicare Annual Wellness Visit 01/25/2024 01/24/2023 Falls Risk Assessment 05/26/2024 05/26/2023 Hypertension/CHF/CAD Annual BMP Blood Test 07/01/2024 07/01/2023 Influenza Vaccine (Season Ended) 2025 01/24/2023, 03/29/2022, 03/09/2021, Additional history exists DTaP,Tdap,and Td Vaccines (2 - Td or Tdap) 06/06/2028 06/06/2018 Cholesterol Screening (Lipid Panel) 07/01/2028 07/01/2023 Osteoporosis Screening (Bone Density Screening) 02/18/2032 02/17/2022 Pneumococcal Vaccine: 50+ Years Completed 10/05/2021, 06/06/2018, 12/31/2017 HIB Vaccines Aged Out No longer eligi ble based on patient's age to complete this topic HPV Vaccines Aged Out No longer eligi ble based on patient's age to complete this topic Hepatitis A Vaccines Aged Out No long er eligible based on patient's age to complete this topic Hepatitis B Vaccines Aged Out No long er eligible based on patient's age to complete this topic IPV Vaccines Aged Out No longer eligi ble based on patient's age to complete this topic MMR Vaccines Aged Out No longer eligi ble based on patient's age to complete this topic Meningococcal ACWY Vaccine Aged Out N o longer eligible based on patient's age to complete this topic Meningococcal B Vaccine Aged Out No l onger eligible based on patient's age to complete this topic RSV Immunization Patients Under 20 months Aged Out No longer eligible based on patient's age to complete this topic Varicella Vaccines Aged Out No longer eligible based on patient's age to complete this topic Procedures Procedure Name Priority Date/Time Associated Diagnosis Comments ANNUAL BMP BLOOD TEST Routine 07/01/2023 LIPID PANEL Routine 07/01/2023 FALLS RISK ASSESSMENT Routine 05/26/2023 DXA BONE DENSITY STUDY 1+ SITS AXIAL SKEL Routine 02/17/2022 2:23 PM EDT Asymptomatic menopausal state from Last 3 Months or Most Recently Relevant to Health Maintenance Results * Annual BMP Blood Test (07/01/2023) [facility] Annual BMP Blood Test abstracted Historical Provider HEALTH MAINTENANCE Final Result * (ABNORMAL) Lipid panel (07/01/2023) [facility] LDL/HDL Ratio 3 0 - 4 Triglycerides 86 0 - 150 mg/dL Cholesterol 227(A) 0 - 200 mg/dL HDL 77 >=40 mg/dL LDL Cholesterol 133(A) 0 - 100 mg/dL Blood Venous blood specimen / Unknown Historical Provider LAB BLOOD ORDERABLES Mary l Result * Falls Risk Assessment (05/26/2023) [facility] Falls Risk Assessment 11,124 Historical Provider HEALTH MAINTENANCE Final Result * DXA BONE DENSITY STUDY 1+ SITS AXIAL SKEL (02/17/2022 2:23 PM EDT) Anatomical Region Laterality Modality Bone Densitometr y 10/05/2021 2:45 PM EDT Narrative 02/17/2022 3:37 PM EDT BONE DENSITY ? Lumbar Spine T-score is -0.9 ?? (SD relative to 20-29 y/o adult) Z-score is +1.6 ??(SD relative to age matched peers) This is normal by criteria defined by the WHO. Left Hip T-score is -1.2 Z-score is +1.0 This is consistent with osteopenia by criteria defined by the WHO. Impression: Based on the World Health Organization criteria, Radha Donovan should be classified as having osteopenia. This patient has a 13% risk of major osteoporotic fracture and a 1.8% risk of hip fracture over the next 10 years. (World Health Organization Fracture Risk Assessment) [facility] Department of Internal Medicine recommends using National Osteoporosis Foundation (NOF) guidelines in treatment decisions related to osteoporosis. NOF guidelines suggest considering treatment for postmenopausal women and men aged 50 or older presenting with the following: History of hip or vertebral fracture. T-score less than or equal to -2.5 (DXA) at the femoral neck, total hip, or spine, after appropriate evaluation to exclude secondary causes. Low bone mass (T-score between -1.0 and -2.5 at the femoral neck or spine) AND a 10-year probability of a hip fracture greater than or equal to 3% OR a 10-year probability of a major osteoporosis-related fracture greater than or equal to 20% based on the [place]-adapted WHO algorithm Please note that all treatment decisions require clinical judgment and consideration of individual patient factors, including patient preferences, co-morbidities, previous drug use, risk factors not captured in the FRAX model (e.g., frailty, falls, vitamin D deficiency, increased bone turnover, interval significant decline in bone density) and possible under- or over-estimation of fracture risk by FRAX. Procedure Note Greg Gonzalez MD - 05/04/2022 BONE DENSITY Lumbar Spine T-score is -0.9 (SD relative to 20-29 y/o adult) Z-score is +1.6 (SD relative to age matched peers) This is normal by criteria defined by the WHO. Left Hip T-score is -1.2 Z-score is +1.0 This is consistent with osteopenia by criteria defined by the WHO. Impression: Based on the World Health Organization criteria, Radha Donovan should beclassified as having osteopenia. This patient has a 13% risk of majorosteoporotic fracture and a 1.8% risk of hip fracture over the next 10years. (World Health Organization Fracture Risk Assessment) [facility] Department of Internal Medicine recommendsusing National Osteoporosis Foundation (NOF) guidelines in treatmentdecisions related to osteoporosis. NOF guidelines suggest consideringtreatment for postmenopausal women and men aged 50 or older presentingwith the following: History of hip or vertebral fracture. T-score less than or equal to -2.5 (DXA) at the femoral neck, total hip,or spine, after appropriate evaluation to exclude secondary causes. Low bone mass (T-score between -1.0 and -2.5 at the femoral neck or spine)AND a 10-year probability of a hip fracture greater than or equal to 3% ORa 10-year probability of a major osteoporosis-related fracture greaterthan or equal to 20% based on the [place]-adapted WHO algorithm Please note that all treatment decisions require clinical judgment andconsideration of individual patient factors, including patientpreferences, co-morbidities, previous drug use, risk factors not capturedin the FRAX model (e.g., frailty, falls, vitamin D deficiency, increasedbone turnover, interval significant decline in bone density) and possibleunder- or over-estimation of fracture risk by FRAX. An[facility]G DXA PROCEDURES Final Resu lt from Last 3 Months or Most Recently Relevant to Health Maintenance Insurance MEDICARE [employer] Care Teams Vehicle Mechanic Relationship Specialty Start Date End Date Arelis Manley MD [address] [place] [address] PCP - General Internal Medicine 03/30/21
--- OUTSIDE RECORDS SUMMARY | 2024-09-10 15:59 | XMS_ITS | Encounter Summary ---
Author Organization [facility] Address [address] [place] [address] Care Team Providers Care Cable Worker Helper Name Role Phone Lise Pack MD Primary Care Provider Unavail able Arelis Manley MD Primary Care Provider [phone] Lb Saenz MD Unavailable [phone] Maci Biswas NP Unavailable [phone] Encounter Details Date Type Department Care Team Description 01/21/2021 Liner Machine Operator Helper Report Medical Records [address] [place] [id number] Gregorio Walter Social History Tobacco Use Types Packs/Day Years [...] on filedocumented in this encounter Care Teams Cable Worker Helper Relationship Specialty Start Date End Date Lise Pack MD PCP - General Internal Medicine 06/10/17 03/29/21 Arelis Manley MD [address] [place] [address] PCP - General Internal Medicine 03/30/21 Lb Saenz MD [address] [place] [address] Specialist Cardiology 06/02/22 Maci Biswas NP [address] [place] [address] Cardiology 06/08/23 12/14/23 documented as of this encounter
--- OUTSIDE RECORDS SUMMARY | 2024-09-10 15:59 | XMS_ITS | Encounter Summary ---
Author Organization [facility] Address [address] [place] [address] Care Team Providers Care Clerical Assigner Name Role Phone Arelis Manley MD Primary Care Provider [phone] Lb Saenz MD Unavailable [phone] Maci Biswas NP Unavailable [phone] Encounter Details Date Type Department Care Team Description 11/24/2023 Telephone Adult Medicine [address] [phone] Arelis Manley MD [address] [place] [address] [id number] Social History Tobacco Use Types Packs/Day Years [...] encounter Miscellaneous Notes * Telephone Encounter - Heydi Garcia L.P.N. - 11/24/2023 9:50 AM EDT This is a FYI, Sandra from the [facility] call our clinic to report this pt's low inr. Her inr today was 1.5. Her range is 2-3 dx of Afib. She missed a dose. Sandra has increased her dose and will re ck her inr in 1wk. They have to report out of range inr's to providerT. Thank you, Miriam documented in this encounter Plan of Treatment Not on file documented as of this encounter Visit Diagnoses Not on filedocumented in this encounter Care Teams Clerical Assigner Relationship Specialty Start Date End Date Arelis Manley MD [address] [place] [address] PCP - General Internal Medicine 03/30/21 Lb Saenz MD [address] [place] [address] Specialist Cardiology 06/02/22 Maci Biswas NP [address] [place] [address] Cardiology 06/08/23 12/14/23 documented as of this encounter
--- OUTSIDE RECORDS SUMMARY | 2024-09-10 15:59 | XMS_ITS | Encounter Summary ---
Author Organization [facility] Address [address] [place] [address] Care Team Providers Care Counterintelligence/Humint Specialist Name Role Phone Arelis Manley MD Primary Care Provider [phone] Lb Saenz MD Unavailable [phone] Maci Biswas NP Unavailable [phone] Encounter Details Date Type Department Care Team Description 08/23/2022 SCAN Medical Records [address] [place] [address] Abstract, Provider Social History Tobacco Use Types [...] Recorded In the last 10 days, have veronica u been in contact with someone who was confirmed or suspected to have Coronavirus/COVID-19? No / Unsure 08/06/2022 2:22 PM EDT documented as of this encounter Plan of Treatment Not on file documented as of this encounter Procedures Procedure Name Priority Date/Time Associated Diagnosis Comments OUTSIDE ECHO Routine 08/23/2022 documented in this encounter Results * OUTSIDE ECHO (08/23/2022) Provider Abstract CARDIOLOGY documented in this encounter Visit Diagnoses Not on filedocumented in this encounter Care Teams Counterintelligence/Humint Specialist Relationship Specialty Start Date End Date Arelis Manley MD [address] [place] [address] PCP - General Internal Medicine 03/30/21 Lb Saenz MD [address] [place] [address] Specialist Cardiology 06/02/22 Maci Biswas NP [address] [place] [address] Cardiology 06/08/23 12/14/23 documented as of this encounter
--- OUTSIDE RECORDS SUMMARY | 2024-09-10 15:59 | XMS_ITS | Encounter Summary ---
Author Organization [facility] Address [address] [place] [address] Care Team Providers Care Human Services Program Specialist Name Role Phone Lise Pack MD Primary Care Provider Unavail able Arelis Manley MD Primary Care Provider [phone] Lb Saenz MD Unavailable [phone] Maci Biswas NP Unavailable [phone] Reason for Visit * Reason Onset Date Comments Faxed Refill 01/26/2020 Encounter Details Date Type Department Care Team Description 01/26/2020 Refill Adult Medicine [address] [address] Lise Pack MD Faxed Refill Social History Tobacco Use Types Packs/Day Years [...] encounter Miscellaneous Notes * Telephone Encounter - Ric Barrow C.M.A. - 01/26/2020 10:52 AM EDT Message left for patient to return my call, needs appt * Telephone Encounter - Valeria Rodriguez - 01/26/2020 9:37 AM EDT Patient would like script to be: E-PRESCRIBED/FAXED TO PHARMACY WHEN WAS THE PATIENT'S LAST APPOINTMENT IN ADULT MEDICINE? 04/19/19 WHEN WAS THE LAST TIME THE PATIENT SAW THEIR PCP? Same as above Does patient have an upcoming appointment? No left message (THE MEDICATION REQUESTED IS ON THE MED [...] / Plan: [place] / Product Type: MEDICARE [id number] documented in this encounter Plan of Treatment Not on file documented as of this encounter Visit Diagnoses Not on filedocumented in this encounter Care Teams Human Services Program Specialist Relationship Specialty Start Date End Date Lise Pack MD PCP - General Internal Medicine 06/10/17 03/29/21 Arelis Manley MD [address] [place] [address] PCP - General Internal Medicine 03/30/21 Lb Saenz MD [address] [place] [address] Specialist Cardiology 06/02/22 Maci Biswas NP [address] [place] [address] Cardiology 06/08/23 12/14/23 documented as of this encounter
--- OUTSIDE RECORDS SUMMARY | 2024-09-10 15:59 | XMS_ITS | Encounter Summary ---
Author Organization [facility] Address [address] [facility] [address] Care Team Providers Care Bioanalyst Name Role Phone Lise Pack MD Primary Care Provider Unavail able Arelis Manley MD Primary Care Provider [phone] Lb Saenz MD Unavailable [phone] Maci Biswas NP Unavailable [phone] Encounter Details Date Type Department Care Team Description 08/09/2017 Release of Information Medical Records [address] [place] [address] Abstract, Provider Social History Tobacco Use Types [...] on filedocumented in this encounter Care Teams Bioanalyst Relationship Specialty Start Date End Date Lise Pack MD PCP - General Internal Medicine 06/10/17 03/29/21 Arelis Manley MD [address] [place] [address] PCP - General Internal Medicine 03/30/21 Lb Saenz MD [address] [place] [address] Specialist Cardiology 06/02/22 Maci Biswas NP [address] [place] [address] Cardiology 06/08/23 12/14/23 documented as of this encounter
--- OUTSIDE RECORDS SUMMARY | 2024-09-10 15:59 | XMS_ITS | Encounter Summary ---
Author Organization [facility] Address [address] [place] [address] Care Team Providers Care Clam Bed Laborer Name Role Phone Arelis Manley MD Primary Care Provider [phone] Lb Saenz MD Unavailable [phone] Maci Biswas NP Unavailable [phone] Reason for Visit * Reason Onset Date Comments Medication 11/08/2022 Encounter Details Date Type Department Care Team Description 11/08/2022 Telephone Cardio [address] [place] [address] Lb Saenz MD [address] [place] [address] Medication Social History Tobacco Use Types Packs/Day Years [...] Telephone Encounter - Jeremy Fraga C.M.A. - 11/18/2022 10:19 AM EDT I spoke with Dr Saenz and he said no she doesn't need to be bridged. Called [facility] and let them know. * Telephone Encounter - Sofía Rider PA-C - 11/08/2022 11:29 AM EDT Is she having mitral valve surgery? I think they should check in with cardiac surgery. I believe Shruthi? * Telephone Encounter - Jeremy Fraga C.M.A. - 11/08/2022 10:04 AM EDT [facility] [phone] called as pt is having a cardiac procedure on 11/30/22 and is holding for 5 days before and they would like to know if she needs to be bridged. documented in this encounter Plan of Treatment Not on file documented as of this encounter Visit Diagnoses Not on filedocumented in this encounter Care Teams Clam Bed Laborer Relationship Specialty Start Date End Date Arelis Manley MD [address] [place] [address] PCP - General Internal Medicine 03/30/21 Lb Saenz MD [address] [place] [address] Specialist Cardiology 06/02/22 Maci Biswas NP [address] [place] [address] Cardiology 06/08/23 12/14/23 documented as of this encounter
--- OUTSIDE RECORDS SUMMARY | 2024-09-10 15:59 | XMS_ITS | Encounter Summary ---
Author Organization [facility] Address [address] [place] [address] Care Team Providers Care Enterprise Resource Planner Name Role Phone Arelis Manley MD Primary Care Provider [phone] Lb Saenz MD Unavailable [phone] Maci Biswas NP Unavailable [phone] Reason for Visit * Reason Onset Date Comments Hospital Procedure 06/28/2022 ZITA 4.10.23 Encounter Details Date Type Department Care Team Description 06/28/2022 Telephone Cardio PVC POC [address] [place] [address] Lb Saenz MD [address] [place] [address] Hospital Procedure (ZITA 4.10.23) Social History Tobacco Use Types Packs/Day Years [...] suspected to have Coronavirus/COVID-19? No / Unsure 06/18/2022 2:29 PM EST documented as of this encounter Miscellaneous Notes * Telephone Encounter - Garry Britton C.M.A. - 08/09/2022 2:42 PM EDT [facility] they are working on getting this patient on to OR schedule,will be arranged by the end of the weel Per Dr. Arroyo she couldn't get patient ZITA done and requested to be done in OR with her or Dr. Knight documented in this encounter Plan of Treatment Not on file documented as of this encounter Visit Diagnoses Diagnosis Heart murmur- Primary Undiagnosed cardiac murmurs documented in this encounter Care Teams Enterprise Resource Planner Relationship Specialty Start Date End Date Arelis Manley MD [address] [place] [id number] PCP - General Internal Medicine 03/30/21 Lb Saenz MD [address] [place] [address] Specialist Cardiology 06/02/22 Maci Biswas NP [address] [place] [address] Cardiology 06/08/23 12/14/23 documented as of this encounter
[2024-09-10] MEDS: cefuroxime axetiL 250 MG TABLET PO (17:08)
[2024-09-10 17:09] LABS: Troponin-I High Sensitivity 7.6 ng/L (<3.5-17.0)
[2024-09-10 17:28] VITALS: BP 133/67; PULSE 75; RESP 18; TEMP 37.1; O2SAT 95
== END 2024-09-10 17:29 | disposition home or self-care (01) ==
PROVIDERS: Physician Assistant; Emergency Provider Emergency Medicine Emergency Medical Services; PCP Internal Medicine
DX: N39.0 Urinary tract infection, site not specified (principal); R41.82 Altered mental status, unspecified; Z79.899 Other long term (current) drug therapy; Z03.818 Encounter for observation for suspected exposure to other biological agents ruled out
CPT/HCPCS: 0241U; 36415; 70450; 71045; 80048; 80076; 81001; 82140; 83735; 84484; 85025; 87086; 93005; 99284

== ENCOUNTER → 2024-09-10 14:16 | Outpatient (BNV) | payer MEDICARE, OTHER, SELFPAY | PROVIDERS: Emergency Provider Emergency Medicine Emergency Medical Services; PCP Internal Medicine; Visit Provider Radiology Diagnostic Radiology | DX: G31.9 Degenerative disease of nervous system, unspecified (principal); R41.82 Altered mental status, unspecified | CPT/HCPCS: 70450; 71045 ==

== ENCOUNTER → 2024-09-10 14:42 | Outpatient (BNV) | payer MEDICARE, OTHER, SELFPAY | PROVIDERS: Emergency Provider Emergency Medicine Emergency Medical Services; PCP Internal Medicine; Visit Provider Internal Medicine Cardiovascular Disease | DX: R41.82 Altered mental status, unspecified (principal) | CPT/HCPCS: 93010 ==

== ENCOUNTER 2024-12-04 20:09 | Emergency (ER) | payer MEDICARE, OTHER, SELFPAY ==
--- OUTSIDE RECORDS SUMMARY | 2024-11-29 11:00 | XMS_ITS | Encounter Summary ---
Author Organization [facility] Address [address] [place] [address] Care Team Providers Care Water Pump Servicer Name Role Phone Arelis Manley MD Primary Care Provider [phone] Reason for Visit * Reason Comments 7 day ROCT * Cardiac Stress Testing (Routine) - Closed Specialty Diagnoses / Procedures Referred By Contemma t Referred To Contact Cardiology Diagnoses Atrial flutter, unspecified type (CMS/HCC V24, CMS/HCC V28) Procedures Cardiac event monitor RI EXTERNAL PATIENT ACTIVATED ECG DOWNLOAD W RESULTS & INTERP <= 30 DAYS RI EXTERNAL PAT AUTO ACTIVATED ECG INCLUDING TRANSMISSION UP TO 30 DAYS RI EXTERNAL MOBILE CV TELEMETRY W ECG RECORDING <=30D PHYSCIAN REV & INTERP RI EXTERNAL MOBILE CV TELEMETRY W ECG RECORDING TECH SUPPORT UP TO 30 DAYS RI ECG UP TO 30 DAYS RECORDING Anais Carson [place] [address] Phone: tel: fax: Referral ID Status Reason Start Date Expiration Date Visits Re quested Visits Authorized [id number] Closed 11/15/2024 11/15/2025 1 1 Encounter Details Date Type Department Care Team (Latest Contact Info) Description 11/29/2024 11:00 AM EDT Ancillary Procedure [facility] [address] [place] [address] Atrial flutter, unspecified type (CMS/HCC V24, CMS/HCC V28) Social History Tobacco Use Types Packs/Day Years Used Date Smoking Tobacco: Never Smokeless Tobacco: Never Alcohol Use Standard Drinks/Week Comments Yes 0 (1 standard drink = 0.6 oz pur e alcohol) occ Comments Unknown Sex and Gender Information Value Date Recorded Sex Assigned at Not on file Legal Sex Female 4:02 PM EST Gender Identity Not on file Sexual Orientation Not on file documented as of this encounter Plan of Treatment Upcoming Encounters Date Type Department Care Team (Late st Contact Info) Description 01/31/2025 2:45 PM EDT Office Visit [facility] [place] [address] [place] [phone] Arelis Manley MD [address] [place] [address] 03/04/2025 3:30 PM EDT Ancillary Procedure [facility] - [address] [place] [address] 03/14/2025 3:15 PM EDT Appointment [facility] - [address] [phone] Pending Results Name Type Priority Associated Diagnoses Date /Time Cardiac event monitor Cardiac Services Routine Atrial flutter, unspecified type (CMS/HCC V24, CMS/HCC V28) 11/30/2024 8:54 AM EDT documented as of this encounter Visit Diagnoses Diagnosis Atrial flutter, unspecified type (CMS/HCC V24, CMS/HCC V28) documented in this encounter Care Teams Water Pump Servicer Relationship Specialty Start Date End Date Arelis Manley MD [address] [place] [address] PCP - General Internal Medicine 03/30/21 documented as of this encounter
[2024-12-04 20:19] VITALS: BP 145/70; PULSE 87; RESP 16; TEMP 36.3; O2SAT 94; BMI 37.7
--- OUTSIDE RECORDS SUMMARY | 2024-12-04 20:34 | XMS_ITS | Clinical Summary ---
Author Organization [facility] Address [address] [place] [address] Care Team Providers Care Lending Activities Supervisor Name Role Phone Suyapa Quezada MD Primary Care Provider + Social History Tobacco Use Types Packs/Day Years Used Date Smoking Tobacco: Never Assessed Comments Unknown Sex and Gender Information Value Date Recorded Sex Assigned at Not on file Legal Sex Female 12:45 EDT Gender Identity Female 12/06/2022 14:11 EDT Sexual Orientation Not on file Plan of Treatment Health Maintenance Due Date Last Done Comments Hepatitis C Screen 1945 Fall Risk Screening 2009 RSV Immunization ( o r 60+ Years) (1 - 1-dose 75+ series) 12/13/2019 COVID-19 Vaccine (2023-2 5 season) 2024 09/19/2021, 05/14/2021, 07/17/2020, Additional [place] [id number] [place] [id number] Care Teams Lending Activities Supervisor Relationship Specialty Start Date End Date Suyapa Quezada MD [address] [place] [address] [place] [phone] PCP - General Radiation Oncology 12/06/22
--- OUTSIDE RECORDS SUMMARY | 2024-12-04 20:34 | XMS_ITS | Clinical Summary ---
Author Organization [facility] Address [address] [place] [address] Care Team Providers Care Operations Research Engineer Name Role Phone Lise Pack MD Primary Care Provider [phone] Allergies No known active allergies Medications Medication [...] 1-dose 75+ series) 12/13/2019 Influenza Vaccine (#1) 2025 Hepatitis B Vaccines Aged Out No long er eligible based on patient's age to complete this topic RSV Ped < 20 months Aged Out No longe r eligible based on patient's age to complete this topic Care Teams Operations Research Engineer Relationship Specialty Start Date End Date Lise Pack MD PCP - General Internal Medicine 09/02/17
--- NOTE | 2024-12-04 20:38 | ED.FEMALEGU ---
HPI - Female Genitourinary General Chief complaint: Urogenital-Female Stated complaint: Catheter removed Time Seen by Provider: 12/04/24 20:38 Source: patient and family Mode of arrival: ambulatory Limitations: no limitations History of Present Illness ED Provider: Dr. Orlando Kong HPI Narrative: 78-year-old female with a past medical history of HTN, frontoparietal atrophy, bladder cancer who presents emergency department requesting Younger catheter removal. Patient has been has a history of bladder cancer in his had 2 treatments in the past . According to the patient's daughter, the patient had a bladder biopsy/treatment yesterday done by Dr. Kari Hilton. Patient was discharged home with a Younegr catheter in place with a plan to have the daughter removed the Younger catheter removed tomorrow mónica. While the daughter who was at work, the patient tried to remove the catheter by herself. The patient was not able to explain to the daughter why she tried to do this. The daughter states the patient has had progressive difficulty with her memory and often has difficulty explaining things to the daughter. Daughter states that initially there was some blood draining from the Younger catheter but there is no blood draining from the catheter at this time. The patient is insisting that the catheter be removed therefore the daughter brought her to the emergency department for evaluation for catheter removal. Related Data Home Medications ?Medication ?Instructions ?Recorded ?Confirmed acetaminophen 325 mg tablet 650 mg PO QID PRN Pain 01/15/21 12/02/23 (Tylenol) melatonin 5 mg tablet 5 mg PO BEDTIME PRN Insomnia 01/15/21 12/02/23 oxybutynin chloride 5 mg 5 mg PO DAILY 01/15/21 12/02/23 tablet,extended release 24 hr L theanine 100 mg PO .hs PRN 08/16/22 12/02/23 calcium 600 mg (as 1 tab PO BID 08/16/22 12/02/23 carbonate)-vitamin D3 5 mcg (200 unit) tablet diltiazem HCl 120 mg 120 mg PO DAILY 08/16/22 12/02/23 capsule,extended release 24 hr loratadine 10 mg tablet 10 mg PO DAILY PRN allergic 08/16/22 12/02/23 symptoms mirtazapine 15 mg tablet 15 mg PO BEDTIME 04/03/23 07/19/24 phenazopyridine 200 mg tablet 200 mg PO TID PRN spasms 08/16/22 12/02/23 sleep 3 PO .hs PRN 08/16/22 12/02/23 psyllium [Metamucil] PO 04/06/23 12/02/23 atorvastatin 10 mg tablet 10 mg PO DAILY 07/07/23 12/02/23 apixaban 5 mg tablet 5 mg PO BID 12/19/23 12/19/23 Previous Rx's ?Medication ?Instructions ?Recorded cefuroxime axetil 250 mg tablet 250 mg PO BID 7 days #14 tabs 09/10/24 Allergies Allergy/AdvReac Type Severity Reaction Status Date / Time mitomycin Allergy Intermediate Rash Verified 12/04/24 20:23 [facility] Past Medical History Medical History H/O: HTN (hypertension) Social History Social History Housing: [facility] Alcohol intake: current Alcohol intake frequency: 0-2 drinks per day (every day- bloody itz) Patient Tobacco Use Status: Never used Tobacco Advance Directives: Yes Advance Directives on File: Yes Advance Directives Date on File: 01/15/21 Current occupational status: retired and disabled 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 Current occupational exposures/hazards: No Physical Exam Vital Signs: Vital Signs: Last Vital Signs Temp 97.4 F 12/04/24 20:19 Pulse 87 12/04/24 20:19 Resp 16 12/04/24 20:19 BP 145/70 H 12/04/24 20:19 Pulse Ox 94 12/04/24 20:19 O2 Del Method Room Air 12/04/24 20:19 BMI result Body Mass Index 37.7 Vital signs revealed an elevated blood pressure of 145/70 otherwise unremarkable Exam: General: Awake, alert in no distress Head: Normocephalic, atraumatic EENT: PERRL, Lids normal, sclera normal, conjunctiva normal, nose normal , ears normal, throat without erythema or exudates Neck: Supple, no adenopathy Lung: breath sounds symmetric, no wheezing, rales or rhonchi Chest: symmetric movement, nontender Heart: regular rate and rhythm, normal S1, S2, 3/6 systolic murmur best heard at the left lower sternal border Abdomen: soft, mild suprapubic tenderness, nondistended, normal bowel sounds Back: no vertebral tenderness, no CVAT Extremities: no deformities, moves all extremities symmetrically Neuro: Awake, alert, oriented, normal speech, cranial nerves intact, moves all extremities symmetrically Psych: Pleasant, cooperative Medical Decision Making Medical Decision Making MDM Narrative: 78-year-old female with a past medical history of HTN, frontoparietal atrophy, bladder cancer who presents emergency department requesting Younger catheter removal. Patient has been has a history of bladder cancer in his had 2 treatments in the past . According to the patient's daughter, the patient had a bladder biopsy/treatment yesterday done by Dr. Kari Hilton. Patient was discharged home with a Younger catheter in place with a plan to have the daughter removed the Younger catheter removed tomorrow mónica. While the daughter who was at work, the patient tried to remove the catheter by herself. The patient was not able to explain to the daughter why she tried to do this. The daughter states the patient has had progressive difficulty with her memory and often has difficulty explaining things to the daughter. Daughter states that initially there was some blood draining from the Younger catheter but there is no blood draining from the catheter at this time. The patient is insisting that the catheter be removed therefore the daughter brought her to the emergency department for evaluation for catheter removal. Vital signs revealed an elevated blood pressure otherwise unremarkable. Exam did reveal some mild suprapubic tenderness. Younger catheter is in place in the urine is yellow and nonbloody. Differential diagnosis: ?Includes but is not limited to confusion secondary to dementia, urinary tract infection Course: Based on the daughter's description I am concerned that the patient has progressive dementia and if we leave the Younger catheter in place the patient will try to remove the catheter causing trauma. At this time there is no blood in the Younger bag and I do not think that she has urinary tract infection or bladder obstruction therefore the catheter will be removed. I told the daughter that if the patient can not void over the next 4-8 hours she will have increased pain and the daughter should then bring the patient back to the emergency department for catheter reinsertion. Admission/Observation Consideration of admission/observation: Escalation of care including admission/observation considered (No) Independent Historian Clinical information obtained from an independent historian. History obtained from or confirmed by: Other (Daughter) Chronic Conditions Patient?s care impacted by: Other (Dementia) Discharge Plan Discharge Clinical Impression: Encounter for Younger catheter removal Patient Disposition: Home, Self-Care Additional Instructions: Your Younger catheter was removed. If you are not able to urinate, if you start to develop abdominal pain from your bladder getting distended then you should return to the emergency department and will reinsert the Younger catheter. Continue taking your medications as prescribed by your providers Follow-up with the urologist for re-evaluation Please return to the emergency department if your symptoms get worse or if you develop any symptoms that are concerning to you. Prescriptions: No Action oxybutynin chloride 5 mg Tablet Extended Release 24hr 5 mg PO DAILY melatonin 5 mg Tablet 5 mg PO BEDTIME PRN (Reason: Insomnia) acetaminophen [Tylenol] 325 mg Tablet 650 mg PO QID PRN (Reason: Pain) cefuroxime axetil 250 mg tablet 250 mg PO BID 7 Days Qty: 14 0RF psyllium [Metamucil] PO apixaban 5 mg tablet 5 mg PO BID diltiazem HCl 120 mg capsule,extended release 24hr 120 mg PO DAILY loratadine 10 mg tablet 10 mg PO DAILY PRN (Reason: allergic symptoms) phenazopyridine 200 mg tablet 200 mg PO TID PRN (Reason: spasms) mirtazapine 15 mg tablet 15 mg PO BEDTIME L theanine 100 mg PO .hs PRN sleep 3 PO .hs PRN calcium carbonate-vitamin D3 600 mg-5 mcg (200 unit) tablet 1 tab PO BID atorvastatin 10 mg tablet 10 mg PO DAILY Print Language: Citizen [place]
--- NOTE | 2024-12-04 21:25 | PC.NURSE ---
Upon discharge, pt ambulated to restroom w/steady gait w/walker and urinated (after botello removal). No visible blood, denies pain.
[2024-12-04 21:30] VITALS: BP 145/70; PULSE 87; RESP 16; TEMP 36.3; O2SAT 94
== END 2024-12-04 21:30 | disposition home or self-care (01) ==
PROVIDERS: Emergency Provider Emergency Medicine Emergency Medical Services; PCP Internal Medicine
DX: Z46.6 Encounter for fitting and adjustment of urinary device (principal); F03.90 Unspecified dementia, unspecified severity, without behavioral disturbance, psychotic disturbance, mood disturbance, and anxiety
CPT/HCPCS: 99284

== ENCOUNTER 2025-01-30 14:24 | Outpatient (AMB) | payer MEDICARE, OTHER, SELFPAY ==
--- OUTSIDE RECORDS SUMMARY | 2011-04-28 04:20 | XMS_ITS | Continuity of Care Document ---
Author Organization [facility] Address [address] [place] [address] [address] [place] [address] Phone Care Team Providers Care In Service Coordinator Name Role Phone Yamel KHALIL MD, Jose D Unavailable Unavailable Procedures Procedure Date AFTER CATARACT LASER SURGERY AFTER CATARACT LASER SURGERY Advance Directives Directive Yes / No Effective Date File Name No Information Encounters Encounter Description Practice Location Reason(s) For Visit Diagnoses Date Provider Providers Copied on Encounter [facility], [address] [place] [address], [id number], tel:[phone] [address] [place] [address] [facility] No Information 1 Yamel Jeffery. [address], [address], [place], [place], [id number] , [place]. tel:[phone] Referring Provider: Jose D Montesinos MD P, [address], [place], [address] . tel:[phone] [facility], [address] [place] [address], [id number], tel:[phone] [address] [place] [address] Eye Surgery [facility] No Information 1 Yamel Jeffery. [address], [address], [place], [place], [id number] , [place]. [phone] Family History Family Member Type Diagnosis Age At Onset No Information Payers Payer name Insurance type Covered libertarian ID Authortarahpau lopez(s) [facility] [id number] Social History Type Description Quantity Date Captured Comments Sex Female Smoking Status No Information Chief Complaint And Reason For Visit No Information Reason For Referral Reason For Referral No Information History Of Present Illness Encounter Date Complaint History Of Prese nt Illness No Information Functional Status Date Functional Assessmen t No Information Instructions Date Instruction Additional Infor mation No Information Assessments Type Assessment Date No Information Patient Care Teams Name Effective Dates (start - stop) Status Members No Information
--- OUTSIDE RECORDS SUMMARY | 2017-08-05 11:40 | XMS_ITS | Continuity of Care Document ---
Author Organization [facility] Address [address] [place] [address] Phone Care Team Providers Care Bead Inspector Name Role Phone Bossman KHALIL, Jackson Unavailable Unavailable Medications Medication Instructions Dosage Effective Dates (start - stop) Status Comments LOSARTAN POTASSIUM 50 MG TAB TAKE 1 TABLET BY MOUTH EVERY DAY - Active Advance Directives Directive Yes / No Effective Date File Name No Information Encounters Encounter Description Practice Location Reason(s) For Visit Diagnoses Date Provider Providers Copied on Encounter [facility], [address] [place] [address], [id number], tel:[phone] [facility] No Information Bossman Paz. [address] [place] [address], [address] [place] [address], . tel:[phone] [facility], [address] [place] [address], [id number], tel:[phone] [facility] No Information Jamie Cobos. [address] [place] [address], [id number], . tel:[phone] Family History Family Member Type Diagnosis Age At Onset No Information Payers Payer name Insurance type Covered democrat ID Authoriza tion(s) No Information Social History Type Description Quantity Date Captured [...]
--- NOTE | 2025-01-30 14:27 | A.OFFVIS_ITS ---
Vital Signs 01/30/25 14:28 Height 5 ft 2 in Weight 187 lb 2 oz BMI 34.2 BP 110/64 Blood Pressure Location Rt brachial Position Sitting Pulse 72 Pulse Source Pulse Oximeter Pulse Oximetry (%) 96 Oxygen Delivery Method Room Air Intake Visit Reasons: [id number] Intake Note: Increased confusion Rattle Leak And Squeak Repairer Required: No Accompanied by: Daughter Allergies mitomycin Allergy (Intermediate, Verified 01/30/25 14:33) Rash Medication List - Last Reconciled 01/30/25 by Roxanne Ross MD acetaminophen (Tylenol) 650 mg PO QID PRN atorvastatin 10 mg PO DAILY calcium carbonate-vitamin D3 600 mg-5 mcg (200 unit) 1 tab PO BID diltiazem HCl CD 120 mg PO DAILY [L theanine 100 mg PO .hs PRN] loratadine 10 mg PO DAILY PRN melatonin 5 mg PO BEDTIME PRN mirtazapine 15 mg PO BEDTIME oxybutynin chloride ER 5 mg PO DAILY phenazopyridine 200 mg PO TID PRN psyllium (Metamucil) PO [sleep 3 PO .hs PRN] HPI Comments Details: 79y/o female comes for evaluation of cognitive issues.In August 2024 she had a fall - as per daughter - she had too many alcoholic drinks , vodka - she was drinking 2-3 vodka tonics per night. EMS came to help her up. she refused to go to ER.PCp suggested to take her ER.she was found to have UTI - course of antibiotics. In November 2024 she was diagnosed with bladder cancer - had bladder surgery. she still lives alone - [facility] [place] , stopped drinking alcohol. No falls sin umm but has some short term memory issues.she has some short term recall issues , forgets what she ate . she has trouble remembering appointments etc. Her daughter prepares her breakfast and supper. she denies any recent sleep issues.In the past she used to have trouble falling asleep. 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 Current occupational exposures/hazards: No Physical Exam Vital Signs: Last Vital Signs Pulse 72 01/30/25 14:28 BP 110/64 01/30/25 14:28 Pulse Ox 96 01/30/25 14:28 Oxygen Delivery Method Room Air 01/30/25 14:28 BMI result Body Mass Index 34.2 Const General: cooperative, healthy appearing and comfortable Nutritional Appearance: average body habitus Orientation/consciousness: patient oriented x3 Eyes Pupils: Equal, round and reactive pupils present Neuro Other: wide based antalgic diet General: patient oriented x3, tone normal and moves all extremities Cranial nerves: Yes Facial sensation intact/muscles of mastication intact, Yes Equal, round and reactive pupils present, Yes Bilaterally intact EOM present, Yes Nystagmus not present, Yes Normal facial strength present and Yes Midline tongue present Cognition (Neuro): normal cognition Gait exam (Neuro): Antalgic gait present Deep tendon reflexes (DTR's): Right triceps reflex intensity grade: 1+, Left triceps reflex intensity grade: 1+, Rt Biceps (C5, C6): 1+, Left biceps reflex intensity grade: 1+, Right brachioradialis reflex intensity grade: 1+, Left brachioradialis reflex intensity grade: 1+, Right patellar reflex intensity grade: 1+ and Left patellar reflex intensity grade: 1+ Coordination: [id number] test normal Orientation What is the (year) (season) (date) (day) (month)?: year, season, date, day and month Where are we (state) (psychiatric hospital) (town or city) (hospital) (floor)?: state, town or city, hospital/clinic and floor Registration Name of 3 unrelated objects clearly and slowly, then ask patient to repeat all 3 of them. (1st repeat determines score. Make sure they can repeat all three): object 1, object 2 and object 3 Attention & Calculation (CHOOSE ONE) Spell WORLD backwards (DLROW): 5 letters Recall Ask patient to repeat the 3 items from question #3.: object 1 Language Show patient a wristwatch & ask what it is. Repeat for pencil.: watch and pencil Ask the patient to repeat the phrase 'No ifs, ands, or buts' after you.: correct Ask the patient to 'take a piece of paper with their right hand' 'fold paper in half' 'place paper on floor': take paper in right hand, fold paper in half and place paper on floor Print the sentence 'CLOSE YOUR EYES' on a piece. If patient actually closes eyes then score.: followed written direction Give patient a blank piece of paper & ask to write a sentence. Score if it contains a noun & verb.: sentence contains subject and verb Ask patient to copy figure of intersecting pentagons exactly. Score if all 10 angles & 2 intersects are included.: all 10 angles present & 2 are intersected Score Score: 27 Assessment & Plan Assessment & Plan (1) Cognitive disorder: Code(s): F09 - Unspecified mental disorder due to known physiological condition Category: Medical Plan she did well on MMSE today Her alcohol consumption octavio contributed to her cognitive change MRI from [place] for review Labs - B12 esr CBC CMP TSH Vit D Home sleep test- patient will call Orders: Orders TSH reflex Free T4 Today F09 - Unspecified mental disorder due to known physiological condition Comprehensive Met. Panel Today F09 - Unspecified mental disorder due to known physiological condition Vitamin B12 and Folate Today F09 - Unspecified mental disorder due to known physiological condition Erythrocyte Sedimentation Rate Today F09 - Unspecified mental disorder due to known physiological condition Complete Blood Count Auto Diff Today F09 - Unspecified mental disorder due to known physiological condition Coding Level of Care Code New Pt Level 4 (31779) Complex EM visit Add On G2211 Diagnoses Cognitive disorder F09
[2025-01-30 14:28] VITALS: BP 110/64; PULSE 72; O2SAT 96; BMI 34.2
--- OUTSIDE RECORDS SUMMARY | 2025-01-30 18:08 | XMS_ITS | Clinical Summary ---
Author Organization [facility] Address [address] [place] [address] Care Team Providers Care Oral Surgery Physician Name Role Phone Lise Pack MD Primary Care Provider [phone] Allergies No known active allergies Medications Medication [...] Health Maintenance Due Date Last Done Comments COVID-19 Vaccine (#1) 1950 Pneumococcal Vaccine (1 [...] age to complete this topic Care Teams Oral Surgery Physician Relationship Specialty Start Date End Date Lise Pack MD PCP - General Internal Medicine 09/02/17
--- OUTSIDE RECORDS SUMMARY | 2025-01-30 18:08 | XMS_ITS | Clinical Summary ---
Author Organization [facility] Address [address] [place] [address] Care Team Providers Care Model Home Sales Greeter Name Role Phone Suyapa Quezada MD Primary [...] Health Maintenance Due Date Last Done Comments Fall Risk Screening 2009 RSV Immunization ( o r 60+ Years) (1 - 1-dose 75+ series) 12/13/2019 COVID-19 Vaccine ( - 2023-2 5 season) 2024 09/19/2021, 05/14/2021, 07/17/2020, Additional [place] [id number] [place] Care Teams Model Home Sales Greeter Relationship Specialty Start Date End Date Suyapa Quezada MD [address] [place] [phone] PCP - General Radiation Oncology 12/06/22
--- OUTSIDE RECORDS SUMMARY | 2025-01-30 18:08 | XMS_ITS ---
Author Name [facility] Organization Unknown Care Team Organization Name Specialty Phone Email Start Date End Da te [facility] ACO 01/02/2025 [facility] Arelis Manley Primary Care 01/20/2023 [facility] Anais Winn Primary Care 03/23/202212/14
== END 2025-01-30 16:01 | disposition home or self-care (01) ==
LOC: HO.HSMS 14:24
PROVIDERS: PCP Internal Medicine; Visit Provider Psychiatry & Neurology Neurology
DX: R41.89 Other symptoms and signs involving cognitive functions and awareness (principal)
CPT/HCPCS: 99204; G2211

== ENCOUNTER → 2025-01-30 14:24 | Outpatient (BNVA) | payer MEDICARE, OTHER, SELFPAY | PROVIDERS: PCP Internal Medicine; Visit Provider Psychiatry & Neurology Neurology | DX: R41.0 Disorientation, unspecified (principal); F09 Unspecified mental disorder due to known physiological condition | CPT/HCPCS: 99202 ==